=== PATIENT | male | born 1935 | race Caucasian/White ===

== ENCOUNTER 2017-04-30 23:00 | Outpatient (CLI) | payer OTHER | END 2017-04-30 23:01 | disposition short-term general hospital (02) | LOC: EMS 23:00 | PROVIDERS: ATTEND Surgery | DX: M25.551 Pain in right hip (principal); Z91.81 History of falling | CPT/HCPCS: A0425; A0429 ==

== ENCOUNTER 2017-07-01 09:21 | Outpatient (CLI) | payer OTHER | END 2017-07-01 09:22 | disposition home or self-care (01) | LOC: SC 09:21 | PROVIDERS: ATTEND Internal Medicine Pulmonary Disease | DX: G47.33 Obstructive sleep apnea (adult) (pediatric) (principal) | CPT/HCPCS: 99203; 99212 ==

== ENCOUNTER 2018-02-18 08:30 | Outpatient (CLI) | payer OTHER | END 2018-02-18 08:31 | disposition home or self-care (01) | LOC: DI 08:30 | PROVIDERS: ATTEND Internal Medicine Cardiovascular Disease | DX: I48.1 Persistent atrial fibrillation (principal); I08.1 Rheumatic disorders of both mitral and tricuspid valves | CPT/HCPCS: 93306 ==

== ENCOUNTER 2020-11-10 23:49 | Emergency (ER) | payer OTHER ==
--- NOTE | 2020-11-11 00:42 | ED Physician Documentation ---
PD HPI DYSPNEA - Stated complaint Stated Complaint: SOA - Chief complaint Chief Complaint: Resp - History obtained from History obtained from: Patient - History of Present Illness Timing - onset: Today Timing - onset during: Sleep Timing - duration: Minutes Timing - details: Now resolved Inciting event(s): Other (laying in bed had an episodes of "sleep apnea") Improved by: Other (waking up) Worsened by: Other (usually by laying on the back) Associated symptoms: Anxiety. No: Fever, Cough, Hemoptysis, Wheezing, Chest pain / discomfort, Palpitations, Diaphoresis, Bilateral edema, Unilateral edema Similar symptoms before: Diagnosis (sleep apnea) Recently seen: Not recently seen - Additional information Additional information: Previously well 85-year-old male with a history of atrial fibrillation has a history of some sleep apnea when he lays on his back. This is mitigated by laying on his left side and the patient has not had problems during a sleep study or at sleep previously. Tonight he was laying on his back and had an episode of sleep apnea which he describes as just stopping breathing and he rolled to his side this resolved and then when he had an episode on his left side he became concerned and he has now come to the emergency department for evaluation. He denies any cough fever or wheezing. He has had pneumonia previously. He does not feel ill. He does have some periodic exertional dyspnea but has not found that he gets desaturation with this. Review of Systems Constitutional: denies: Fever Eyes: denies: Loss of vision, Decreased vision Ears: denies: Ear pain Nose: denies: Congestion Throat: denies: Sore throat Cardiac: denies: Chest pain / pressure, Palpitations, Pedal edema, Calf pain Respiratory: reports: Dyspnea. denies: Cough, Wheezing GI: denies: Abdominal Pain, Abdominal Swelling, Nausea, Vomiting : denies: Dysuria, Frequency PD PAST MEDICAL HISTORY - Past Medical History Past Medical History: Yes Cardiovascular: High cholesterol, Atrial fibrillation Respiratory: Pneumonia, Shortness of breath Endocrine/Autoimmune: None GI: GERD : None Psych: None Musculoskeletal: None Derm: None - Past Surgical History Past Surgical History: Yes General: Other Cardiovascular: Pacemaker HEENT: Cataracts - Present Medications Home Medications: Ambulatory Orders Medication Instructions Recorded Confirmed Ascorbic Acid [Vitamin C] 500 mg PO DAILY 10/12/13 10/12/13 Calcium Carbonate [Calcium] 1,200 mg PO BID 10/12/13 10/12/13 Colesevelam HCl [Welchol] 625 mg PO DAILY 10/12/13 10/12/13 Fish Oil/Dha/Epa [Fish Oil 1,200 1 each PO BID 10/12/13 10/12/13 mg Fish Oil] Glucosamine/MSM/Chondroit Sulf 1 each PO DAILY 10/12/13 10/12/13 [Hgcfojpisnt-Iwstofqic-WPP Tab] Multivitamin [Multivitamins] 1 each PO DAILY 10/12/13 10/12/13 Omeprazole [Prilosec] 20 mg PO DAILY 10/12/13 10/12/13 Sotalol [Betapace] 160 mg PO BID 10/12/13 10/12/13 Warfarin Sodium [Coumadin] 0 mg PO DAILY 10/12/13 10/12/13 - Allergies Allergies/Adverse Reactions: Allergies Allergy/AdvReac Type Severity Reaction Status Date / Time Penicillins Allergy Rash Verified 11/11/20 00:01 - Social History Does the pt smoke?: No Smoking Status: Never smoker Does the pt drink ETOH?: Yes Does the pt have substance abuse?: No - Immunizations Immunizations are current?: Yes - POLST Patient has POLST: No PD ED PE NORMAL - Vitals Vital signs reviewed: Yes (Hypertensive) - General General: Alert and oriented X 3, No acute distress, Well developed/nourished - HEENT HEENT: Atraumatic, PERRL, EOMI - Neck Neck: Supple, no meningeal sign, No bony TTP - Cardiac Cardiac: RRR, No murmur - Respiratory Respiratory: No respiratory distress, Clear bilaterally - Abdomen Abdomen: Soft, Non tender - Back Back: No CVA TTP, No spinal TTP - Derm Derm: Normal color, Warm and dry, No rash - Extremities Extremities: No deformity, No edema - Neuro Neuro: Alert and oriented X 3, 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, No motor deficit, No sensory deficit, Normal speech Eye Opening: Spontaneous Motor: Obeys Commands Verbal: Oriented GCS Score: 15 - Psych Psych: Normal mood, Normal affect Results - Vitals Vitals: Vital Signs - 24 hr 11/10/20 11/11/20 11/11/20 23:52 00:18 01:30 Temperature 36.3 C L Heart Rate 75 69 72 Respiratory 14 13 14 Rate Blood Pressure 151/99 H 129/95 H 133/84 H O2 Saturation 99 98 97 Oxygen O2 Source Room air - EKG (time done) 0011 Rate: Rate (enter#) (79) Rhythm: Atrial fibrillation Ischemia: Normal ST segments Compare to prior EKG: Old EKG unavailable Computer interpretation: Agree with computer - Labs Labs: Laboratory Tests 11/11/20 11/11/20 11/11/20 00:50 00:50 00:50 WBC 6.9 RBC 4.39 L Hgb 13.3 L Hct 40.5 L MCV 92.3 MCH 30.3 MCHC 32.8 RDW 13.8 Plt Count 174 MPV 10.4 Neut # (Auto) 4.2 Lymph # (Auto) 1.3 L Crowley # (Auto) 0.9 Eos # (Auto) 0.4 Baso # (Auto) 0.1 Absolute Nucleated RBC 0.00 Nucleated RBC % 0.0 Sodium 128 L Potassium 4.5 Chloride 93 L Carbon Dioxide 23 Anion Gap 12.0 BUN 15 Creatinine 1.0 Estimated GFR (MDRD) 71 L Glucose 107 H Calcium 9.3 Total Bilirubin 1.0 AST 31 ALT 22 Alkaline Phosphatase 126 H Troponin I High Sens 7.1 B-Natriuretic Peptide Total Protein 6.7 Albumin 3.8 Globulin 2.9 Albumin/Globulin Ratio 1.3 Lipase 30 11/11/20 00:50 WBC RBC Hgb Hct MCV MCH MCHC RDW Plt Count MPV Neut # (Auto) Lymph # (Auto) Crowley # (Auto) Eos # (Auto) Baso # (Auto) Absolute Nucleated RBC Nucleated RBC % Sodium Potassium Chloride Carbon Dioxide Anion Gap BUN Creatinine Estimated GFR (MDRD) Glucose Calcium Total Bilirubin AST ALT Alkaline Phosphatase Troponin I High Sens B-Natriuretic Peptide 318 H Total Protein Albumin Globulin Albumin/Globulin Ratio Lipase - Rads (name of study) Chest Radiology: Prelim report reviewed, EMP read indepedently, See rad report Procedures - IVC sono (time) 0040 Bedside IVC sono: IVC measures (cm) (1.48), IVC collapsed c insp (cm) (1.02), Euvolemia PD MEDICAL DECISION MAKING - ED course Complexity details: reviewed old records, reviewed results, re-evaluated patient, considered differential, d/w patient ED course: 85-year-old male with a history of sleep apnea has episodes which he feels are related to apnea and they do not usually occur when he is laying on his left side. When he had one occurring on his left side he is come to the emergency department with concerns. I have asked the patient to follow-up again with Dr. Schmid Departure - Departure Disposition: 01 Home, Self Care Clinical Impression: Sleep apnea in adult Condition: Stable Instructions: ED Apnea Sleep Obstructive Follow-Up: Lauri Vasquez MD [Primary Care Provider] - Surjit Wells MD, DABSM [Provider Admit Priv/Credential] - Discharge Date/Time: 11/11/20 02:06
[2020-11-11 00:56] LABS: BASOPHILS # (AUTO) 0.1 10^3/uL (0.0-0.1); BASOPHILS % (AUTO) 1.3 %; EOSINOPHILS # (AUTO) 0.4 10^3/uL (0.0-0.7); EOSINOPHILS % (AUTO) 6.2 %; HCT - HEMATOCRIT 40.5 % (42.0-52.0); HGB - HEMOGLOBIN 13.3 g/dL (14.0-18.0); LYMPHOCYTES # (AUTO) 1.3 10^3/uL (1.5-3.5); MEAN CORPUSCULAR HEMOGLOBIN 30.3 pg (27.0-31.0); MEAN CORPUSCULAR HGB CONC 32.8 g/dL (32.0-36.0); MEAN CORPUSCULAR VOLUME 92.3 fL (80.0-94.0); MEAN PLATELET VOLUME 10.4 fL (7.4-11.4); MONOCYTES # (AUTO) 0.9 10^3/uL (0.0-1.0); MONOCYTES % (AUTO) 13.5 %; NEUTROPHILS # (AUTO) 4.2 10^3/uL (1.5-6.6); NEUTROPHILS % (AUTO) 60.7 %; PLT - PLATELET COUNT 174 10^3/uL (130-450); RED BLOOD COUNT 4.39 10^6/uL (4.70-6.10); RED CELL DISTRIBUTION WIDTH 13.8 % (12.0-15.0); WHITE BLOOD COUNT 6.9 x10^3/uL (4.8-10.8)
[2020-11-11 01:09] LABS: ALBUMIN 3.8 g/dL (3.2-5.5); ALBUMIN/GLOBULIN RATIO 1.3 (1.0-2.2); CALCIUM 9.3 mg/dL (8.5-10.3); POTASSIUM 4.5 mmol/L (3.5-5.0); TOTAL PROTEIN 6.7 g/dL (6.7-8.2)
[2020-11-11 01:53] VITALS: BP 133/84
--- NOTE | 2020-11-11 08:23 | XRAY Report ---
PROCEDURE: Chest 1 View X-Ray INDICATIONS: Dyspnea TECHNIQUE: One view of the chest was acquired. COMPARISON: None FINDINGS: Surgical changes and devices: Left chest wall to lead cardiac pacing device. Lungs and pleura: No pleural effusions or pneumothorax. Low lung volumes. No abnormal air space opac ity Mediastinum: Mediastinal contours appear normal. Heart size is normal. Bones and chest wall: No suspicious bony lesions. Overlying soft tissues appear unremarkable. IMPRESSION: No acute finding or significant change from prior study. No significant change from preliminary repor t. Reviewed by: Jeremy Murray MD on 11/11/2020 8:22 AM PDT Approved by: Jeremy Murray MD on 11/11/2020 8:22 AM PDT Station ID: [id number]
== END 2020-11-11 02:06 | disposition home or self-care (01) ==
LOC: ED 23:49
DX: G47.33 Obstructive sleep apnea (adult) (pediatric) (principal)
CPT/HCPCS: 36415; 80053; 83690; 83880; 84484; 85025; 85610; 93005; 99284

== ENCOUNTER 2021-06-05 13:00 | Outpatient (CLI) | payer OTHER | END 2021-06-05 13:01 | disposition home or self-care (01) | LOC: COV 13:00 | PROVIDERS: ATTEND Dermatology MOHS-Micrographic Surgery | DX: Z01.812 Encounter for preprocedural laboratory examination (principal); Z20.822 Contact with and (suspected) exposure to COVID-19 ==

== ENCOUNTER 2022-09-12 16:49 | Observation (INO) | payer OTHER ==
[2022-09-12] MEDS ORDERED: ACETAMINOPHEN 500 MG TABLET PO STA (17:13)
--- NOTE | 2022-09-12 17:14 | ED Physician Documentation ---
PD HPI HEAD INJURY - Stated complaint Stated Complaint: FALL, BACK/HEAD INJ - Chief complaint Chief Complaint: Trauma Hd/Nk - History obtained from History obtained from: Patient - Additional information Additional information: 87-year-old gentleman with atrial fibrillation on warfarin had been unloading the groceries and got to the top step and then fell backwards, mechanical fall without loss of consciousness. He went down 7 steps and scraped his left eyebrow. Does not feel head injured otherwise per se. His main pain is of the right posterior ribs. He also has some low spinal pain. Review of Systems Eyes: denies: Loss of vision Nose: denies: Rhinorrhea / runny nose, Epistaxis Cardiac: denies: Chest pain / pressure Respiratory: denies: Dyspnea, Cough GI: denies: Abdominal Pain PD PAST MEDICAL HISTORY - Past Medical History Cardiovascular: High cholesterol, Atrial fibrillation Respiratory: Pneumonia, Shortness of breath Endocrine/Autoimmune: None GI: GERD : None Psych: None Musculoskeletal: None Derm: None - Past Surgical History Past Surgical History: Yes General: Other Cardiovascular: Pacemaker HEENT: Cataracts - Present Medications Home Medications: Ambulatory Orders Medication Instructions Recorded Confirmed Ascorbic Acid [Vitamin C] 500 mg PO DAILY 10/12/13 10/12/13 Calcium Carbonate [Calcium] 1,200 mg PO BID 10/12/13 10/12/13 Colesevelam HCl [Welchol] 625 mg PO DAILY 10/12/13 10/12/13 Fish Oil/Dha/Epa [Fish Oil 1,200 1 each PO BID 10/12/13 10/12/13 mg Fish Oil] Glucosamine/MSM/Chondroit Sulf 1 each PO DAILY 10/12/13 10/12/13 [[id number]-Fivfyrfyv-UEM Tab] Multivitamin [Multivitamins] 1 each PO DAILY 10/12/13 10/12/13 Omeprazole [Prilosec] 20 mg PO DAILY 10/12/13 10/12/13 Sotalol [Betapace] 160 mg PO BID 10/12/13 10/12/13 Warfarin Sodium [Coumadin] 0 mg PO DAILY 10/12/13 10/12/13 - Allergies Allergies/Adverse Reactions: Allergies Allergy/AdvReac Type Severity Reaction Status Date / Time Penicillins Allergy Rash Verified 09/12/22 17:03 - Social History Does the pt smoke?: No Smoking Status: Never smoker Does the pt drink ETOH?: Yes Does the pt have substance abuse?: No - Immunizations Immunizations are current?: Yes - POLST Patient has POLST: No PD ED PE NORMAL - Vitals Vital signs reviewed: Yes - General General: Alert and oriented X 3, No acute distress - HEENT HEENT: PERRL, EOMI - Neck Neck: Supple, no meningeal sign, No bony TTP - Respiratory Respiratory: No respiratory distress, Clear bilaterally - Abdomen Abdomen: Non tender - Back Back: Other (Tender to right posterolateral ribs, mild tenderness to the low lumbar spine.) - Derm Derm: Normal color, Warm and dry, Other (There is an abrasion above the left eyebrow) - Neuro Neuro: Alert and oriented X 3, Normal speech Eye Opening: Spontaneous Motor: Obeys Commands Verbal: Oriented GCS Score: 15 Results - Vitals Vitals: Vital Signs - 24 hr 09/12/22 16:59 Temperature 36.4 C L Heart Rate 63 Respiratory 20 Rate Blood Pressure 133/85 H O2 Saturation 99 Oxygen O2 Source Room air - Labs Labs: Laboratory Tests 09/12/22 09/12/22 09/12/22 17:19 17:19 17:20 WBC 14.1 H RBC 4.45 L Hgb 13.4 L Hct 41.9 L MCV 94.2 H MCH 30.1 MCHC 32.0 RDW 13.4 Plt Count 187 MPV 11.4 Neut # (Auto) 11.5 H Lymph # (Auto) 1.1 L [place] # (Auto) 1.0 Eos # (Auto) 0.2 Baso # (Auto) 0.1 Absolute Nucleated RBC 0.00 Nucleated RBC % 0.0 INR (Fingerstick) 1.6 H Sodium 136 Potassium 4.3 Chloride 98 L Carbon Dioxide 27 Anion Gap 11.0 BUN 25 H Creatinine 1.3 H Estimated GFR (MDRD) 52 L Glucose 132 H Calcium 9.9 - Rads (name of study) CT of the head, cervical spine, chest, thoracic spine, lumbar spine Radiology: Final report received, EMP read indepedently PD Medical Decision Making - ED course ED course: 87-year-old gentleman on warfarin took a fall down the stairs and mostly complains of rib pain. CT of the head and neck were negative for findings of serious trauma. CT of the thoracic spine and chest show nondisplaced right T6 and T7 transverse process fractures and minimally displaced right posterior sixth through eighth rib fractures with a tiny right pneumothorax and probably a hemothorax 2. CT of the lumbar spine was negative. Given his age, anticoagulated status and pneumothorax albeit tiny I spoke with Dr. Sneed who will observe. He did not want anything stronger than Tylenol for pain. INR reviewed at 1.6 which is subtherapeutic. BMP reviewed showing mild prerenal azotemia. CBC reviewed with mild leukocytosis and mild anemia. Departure - Departure Disposition: ED Place in Observation Clinical Impression: Multiple transverse process fractures, Subtherapeutic anticoagulation Rib fractures Qualifiers: Encounter type: initial encounter Fracture type: closed Laterality: right Qualified Code(s): S22.41XA - Multiple fractures of ribs, right side, initial encounter for closed fracture Pneumothorax Qualifiers: Pneumothorax type: traumatic Encounter type: initial encounter Qualified C ode(s): S27.0XXA - Traumatic pneumothorax, initial encounter Fall down stairs Qualifiers: Encounter type: initial encounter Qualified Code(s): W10.8XXA - Fall (on) (from) other stairs and steps, initial encounter Condition: Stable Discharge Date/Time: 09/12/22 20:39
--- NOTE | 2022-09-12 18:25 | CT Report ---
PROCEDURE: CERVICAL SPINE WO INDICATIONS: Fall, spine and rib injury TECHNIQUE: Noncontrast 3 mm thick sections acquired from the skull base to the T4 level. Sagittal and coronal r eformats were then constructed. For radiation dose reduction, the following was used: automated exp osure control, adjustment of mA and/or kV according to patient size. COMPARISON: None. FINDINGS: Image quality: Excellent. Bones: No acute fractures or dislocations. Visualized superior ribs are intact. Multilevel disc sp aaron narrowing and degenerative endplate changes as well as multilevel uncovertebral joint and facet h ypertrophy are seen throughout the cervical spine. There is generalized osteopenia. Soft tissues: Prevertebral soft tissues are normal in thickness. No paravertebral hematomas. No ap ical pneumothoraces. Bilateral carotid bifurcation atherosclerotic calcifications. IMPRESSION: No acute cervical spine fracture or subluxation. Moderate multilevel spondylosis. Reviewed by: Henry Monson MD on 09/12/2022 6:23 PM PST Approved by: Henry Monson MD on 09/12/2022 6:23 PM PST Station ID: [id number]
--- NOTE | 2022-09-12 18:39 | CT Report ---
PROCEDURE: CHEST WO INDICATIONS: Fall, spine and rib injury TECHNIQUE: Noncontrast 1mm axial images were acquired from the pulmonary apices to the posterior costophrenic an gles. Axial 5 mm soft tissue kernel reconstructions were performed as well as 8 mm axial MIP and cor onal and sagittal 5 mm reformations. For radiation dose reduction, the following was used: automate d exposure control, adjustment of mA and/or kV according to patient size. COMPARISON: Chest radiograph 11/11/2020, CT chest 10/13/2013 FINDINGS: Image quality: Excellent. Lungs and pleura: No acute air space opacities. Mild peripheral reticulations and traction bronchie ctasis in both lungs are suspicious for mild chronic interstitial lung disease. Trace right-sided ple ural fluid. Trace anterior pneumothorax. Central and peripheral airways are patent and normal in tiffany guilherme. Mediastinum: Heart size is moderately enlarged. No pericardial effusion. No mediastinal adenopathy by size criteria. Thoracic aorta and central pulmonary arteries are normal in size. Esophagus is n ormal in caliber. Small hiatal hernia. Bones and chest wall: A cardiac pacemaker is seen with pulse generator in the left chest. Remote michael or healed right lateral rib fractures are present. Subtle cortical irregularity at the anterior aspec t of multiple right-sided ribs could represent subtle nondisplaced rib fractures a few old healed lef t-sided rib fractures are also present. No suspicious bony lesions. No vertebral body compression fr actures. Degenerative changes are seen in the spine. No axillary or supraclavicular adenopathy by si ze criteria. The thyroid is normal in size. Abdomen: Visualized upper abdominal solid organs and bowel loops appear normal in the absence of con trast. IMPRESSION: 1.Subtle cortical irregularity at the anterior aspect of multiple right-sided ribs near the costochon dral junction, which could represent subtle nondisplaced fractures. Additional subacute to chronic ap pearing rib fractures are seen bilaterally. 2.Trace right-sided pneumothorax anteriorly and trace right pleural effusion posteriorly. 3.Mild chronic interstitial lung disease. 4.Moderate cardiomegaly. Reviewed by: Henry Monson MD on 09/12/2022 6:38 PM PST Approved by: Henry Monson MD on 09/12/2022 6:38 PM PST Station ID: [id number]
--- NOTE | 2022-09-12 18:44 | CT Report ---
PROCEDURE: HEAD WO INDICATIONS: Fall, head injury TECHNIQUE: Noncontrast 4.5 mm thick angled axial sections acquired from the foramen magnum to the vertex. For r adiation dose reduction, the following was used: automated exposure control, adjustment of mA and/or kV according to patient size. COMPARISON: None. FINDINGS: Image quality: Excellent. Please note that study images are located under accession number [id number]. CSF spaces: Basal cisterns are patent. No extra-axial fluid collections. Ventricles are symmetric in size and shape. Brain: No acute intracranial hemorrhage or mass effect. No midline shift. Small area of chronic encep halomalacia is seen in the left occipital lobe related to prior infarct. There is mild prominence of the cerebral sulci and ventricles, consistent with diffuse parenchymal volume loss. Skull and face: Small left frontal scalp hematoma. Calvarium and visualized facial bones are intact, without suspicious lesions. Sinuses: Mucosal thickening in the right maxillary sinus. The remaining visualized paranasal sinuses and the mastoid air cells are clear. IMPRESSION: 1.Please note that nonreformatted axial exam images are available under accession number [id number] H. 2.Small left frontal scalp hematoma. No skull fracture. No acute intracranial hemorrhage or mass effe ct. 3.Remote prior left occipital lobe infarct. 4.Mild age-related parenchymal volume loss. Reviewed by: Henry Monson MD on 09/12/2022 6:42 PM PST Approved by: Henry Monson MD on 09/12/2022 6:42 PM PST Station ID: [id number]
--- NOTE | 2022-09-12 18:48 | CT Report ---
PROCEDURE: THORACIC SPINE WO INDICATIONS: Fall, spine and rib injury TECHNIQUE: Noncontrast 3 mm thick sections acquired through the region of interest in the thoracic spine. Sagit marcello and coronal reformats were then constructed. For radiation dose reduction, the following was used : automated exposure control, adjustment of mA and/or kV according to patient size. COMPARISON: None. FINDINGS: Image quality: Excellent. Bones: Minimally displaced fractures are seen in the posterior medial right sixth through eighth rib s. Minimally displaced fracture of the right T6 and T7 transverse processes. No acute thoracic spine compression fracture. The posterior left-sided ribs are intact. Levoconvex curvature of the thoracic spine. No suspicious sclerotic or lytic bony lesions. Central spinal canal is of normal overall tiffany guilherme. Soft tissues: Trace right pleural effusion. A few foci of air and trace pneumothorax are seen adjace nt to the seventh and eighth rib fractures. No paravertebral masses or hematomas. Visualized postero medial lungs appear clear. Aortic atherosclerotic calcifications. There is enlarged. IMPRESSION: 1.Minimally displaced right posterior sixth through eighth rib fractures. 2.No displaced right T6 and T7 transverse process fractures. 3.Trace right pneumothorax and trace pleural effusion. Reviewed by: Henry Monson MD on 09/12/2022 6:47 PM PST Approved by: Henry Monson MD on 09/12/2022 6:47 PM PST Station ID: [id number]
[2022-09-12 18:49] LABS: BASOPHILS # (AUTO) 0.1 10^3/uL (0.0-0.1); BASOPHILS % (AUTO) 0.8 %; EOSINOPHILS # (AUTO) 0.2 10^3/uL (0.0-0.7); EOSINOPHILS % (AUTO) 1.6 %; HCT - HEMATOCRIT 41.9 % (42.0-52.0); HGB - HEMOGLOBIN 13.4 g/dL (14.0-18.0); LYMPHOCYTES # (AUTO) 1.1 10^3/uL (1.5-3.5); LYMPHOCYTES % (AUTO) 7.8 %; MEAN CORPUSCULAR HEMOGLOBIN 30.1 pg (27.0-31.0); MEAN CORPUSCULAR VOLUME 94.2 fL (80.0-94.0); MEAN PLATELET VOLUME 11.4 fL (7.4-11.4); MONOCYTES % (AUTO) 7.1 %; NEUTROPHILS # (AUTO) 11.5 10^3/uL (1.5-6.6); NEUTROPHILS % (AUTO) 81.7 %; PLT - PLATELET COUNT 187 10^3/uL (130-450); RED BLOOD COUNT 4.45 10^6/uL (4.70-6.10); RED CELL DISTRIBUTION WIDTH 13.4 % (12.0-15.0); WHITE BLOOD COUNT 14.1 x10^3/uL (4.8-10.8)
[2022-09-12] MEDS ORDERED: LIDOCAINE PATCH 5% TOP STA (18:52)
--- NOTE | 2022-09-12 18:52 | CT Report ---
PROCEDURE: LUMBAR SPINE WO INDICATIONS: Fall, spine and rib injury TECHNIQUE: Noncontrast 3 mm thick sections acquired from the T12 level to the sacrum. Sagittal and coronal refo rmats were constructed. For radiation dose reduction, the following was used: automated exposure co ntrol, adjustment of mA and/or kV according to patient size. COMPARISON: None. FINDINGS: Image quality: Excellent. 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 Grade 1 retrolisthesis of L4 on L5 measurin g 3 mm. There is 2 mm grade 1 retrolisthesis of L2 on L3. No acute vertebral body compression fractur es. No suspicious lytic or blastic bony lesions. Central spinal caliber is of normal overall calibe r. No pars defects. Severe disc space narrowing and degenerative endplate changes are seen throughout the lumbar spine. T here is multilevel facet hypertrophy throughout the lumbar spine. Findings result in multilevel neura l foraminal narrowing. Soft tissues: No retroperitoneal masses or hematomas. Visualized aorta is normal in caliber. Aorti c atherosclerotic calcifications. IMPRESSION: 1.No acute lumbar spine fracture identified. 2.Moderate to severe multilevel spondylosis. 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 Reviewed by: Henry Monson MD on 09/12/2022 6:51 PM PST Approved by: Henry Monson MD on 09/12/2022 6:51 PM PST Station ID: [id number]
[2022-09-12 18:56] LABS: CALCIUM 9.9 mg/dL (8.5-10.3); CREATININE 1.3 mg/dL (0.6-1.2); POTASSIUM 4.3 mmol/L (3.5-5.0)
[2022-09-12] MEDS ORDERED: ACETAMINOPHEN 325 MG TABLET PO PRN (19:12)
[2022-09-12] MEDS ORDERED: SODIUM CHLORIDE FLUSH 0.9% 10 ML SYRINGE IVP PRN (19:12)
[2022-09-12] MEDS ORDERED: ONDANSETRON ODT 4 MG TABLET TL PRN (19:12)
--- NOTE | 2022-09-12 19:20 | SURGERY HX AND PHYSICAL(T) ---
Surgical History & Physical - Chief Complaint/HPI Chief Complaint: s/p fall History of Present Illness: At approximately 1630 today, the patient and his were returning home from the grocery store when the patient missed a step at the top of the stairs. He fell backwards and knocked his over as well as he tumbled "ass over teakettle" down the stairs. He did not have a loss of consciousness. He did hit his forehead. He is on chronic warfarin for a fib. At the time of my exam, the patient complains of some mid back pain, but otherwise has no complaints. He is not short of breath. He denies n/v, abdominal pain. - PMH/PSH/Social Hx Does the pt have a hx of MRSA?: No Cardiovascular: High cholesterol, Atrial fibrillation Respiratory: Pneumonia, Shortness of breath Skin: None Endocrine/Autoimmune: None Gastrointestinal: GERD Urinary: None Musculoskeletal: None Blood Disorders: None Psychiatric: None General: Other Cardiothoracic: Pacemaker Eyes Ears Nose Throat (EENT): Cataracts Smoking Status: Never smoker Does the pt drink ETOH?: Yes Frequency: Daily Number: 1 Amount/day: Drinks/day Does the pt have substance abuse?: No - Family Hx Family Hx: Unremarkable - Home Meds and Allergies Home Medications: Ascorbic Acid [Vitamin C] 500 mg PO DAILY 10/12/13 Calcium Carbonate [Calcium] 1,200 mg PO BID 10/12/13 Colesevelam HCl [Welchol] 625 mg PO DAILY 10/12/13 Fish Oil/Dha/Epa [Fish Oil 1,200 mg Fish Oil] 1 each PO BID 10/12/13 Glucosamine/MSM/Chondroit Sulf [Iktuuykrsam-Zucelpdbc-DKX Tab] 1 each PO DAILY 10/12/13 Multivitamin [Multivitamins] 1 each PO DAILY 10/12/13 Omeprazole [Prilosec] 20 mg PO DAILY 10/12/13 Sotalol [Betapace] 160 mg PO BID 10/12/13 Warfarin Sodium [Coumadin] 0 mg PO DAILY 10/12/13 Allergies/Adverse Reactions: Allergies Allergy/AdvReac Type Severity Reaction Status Date / Time Penicillins Allergy Rash Verified 09/12/22 17:03 - Review of Systems Constitutional: Other (Aside from HPI and PMH, negative.) - Vital Signs Heart Rate: 72 Blood Pressure: 123/90 Temperature: 36.4 C Respiratory Rate: 18 O2 Saturation: 97 Weight (kg): 74.843 kg Height: 1.65 m - Physical Exam General Appearance: positive: No acute distress, Alert Eyes Bilatera: positive: Normal inspection, PERRL, EOMI ENT: positive: No signs of dehydration, Other (left forehead scalp laceration and associated hematoma) Neck: positive: Nml inspection, Thyroid nml, No JVD, Trachea midline Respiratory: positive: Chest non-tender, No respiratory distress Cardiovascular: positive: Irregularly irregular, Other (regular rate) Peripheral Pulses: positive: 2+ Abdomen: positive: Non-tender. negative: Guarding, Rebound Back: positive: Other (right mid thoracic pain, lidoderm patch in place. Otherwise no midline ttp.) Skin: positive: Color nml. negative: Skin rash Extremities: positive: Non-tender, Full ROM, No pedal edema, Other (several bruises in various stages of healing) Neurologic/Psychiatric: positive: Oriented x3, Motor nml, Sensation nml - Patient Review Patient Review: Problems were reviewed with the patient during this visit. Medications were reviewed with the patient during this visit. Allergies were reviewed this patient during this visit. Pertinent Tests Reviewed: All pertitent test for this patient were reviewed. 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 87 y/o M s/p fall down stairs with: 1. right posterior rib 6-8 fx, non displaced - lidoderm patch in place - pain controlled with tylenol - tiny dot of air in thorax just deep to fracture, possible trace pneumothorax - plan to recheck CXR in AM 2. right T6,7 TP fx - non displaced - pain controlled - neuro intact 3. scalp laceration - s/p repair - small associated hematoma 4. Afib, HPL, GERD - will continue home meds Observe overnight for pain control and repeat CXR in AM. If no significant increase in pneumothorax, plan to discharge home tomorrow AM.
[2022-09-12] MEDS ORDERED: CALCIUM CARBONATE 500 MG PO SCH (21:00)
[2022-09-12] MEDS: SOTALOL 80 MG TABLET PO SCH (21:29)
[2022-09-12 21:32] LABS: B. PARAPERTUSSIS- RESP PCR PAN NOT DETECTED; B. PERTUSSIS- RESP PCR PANEL NOT DETECTED; C. PNEUMONIAE- RESP PCR PANEL NOT DETECTED; CORONAVIRUS 229E-RESP PCR NOT DETECTED; CORONAVIRUS HKU1-RESP PCR NOT DETECTED; CORONAVIRUS NL63-RESP PCR NOT DETECTED; CORONAVIRUS OC43-RESP PCR NOT DETECTED; HUMAN METAPNEUMOVIRUS NOT DETECTED; INFLUENZA A- RESP PCR PANEL NOT DETECTED; INFLUENZA B - RESP PCR PANEL NOT DETECTED; M. PNEUMONIAE- RESP PCR PANEL NOT DETECTED; PARAINFLUENZA VIRUS 1 NOT DETECTED; PARAINFLUENZA VIRUS 2 NOT DETECTED; PARAINFLUENZA VIRUS 3 NOT DETECTED; PARAINFLUENZA VIRUS 4 NOT DETECTED; RHINOVIRUS/ENTEROVIRUS NOT DETECTED; RSV- RESP PCR PANEL NOT DETECTED; SARS-CoV-2 -RESP PCR PANEL NOT DETECTED
[2022-09-12] MEDS: oxyCODONE 5 MG TABLET PO PRN (23:52)
[2022-09-13] MEDS: SODIUM CHLORIDE FLUSH 0.9% 10 ML SYRINGE IVP SCH ×2 (01:21→09:29)
[2022-09-13] MEDS ORDERED: PANTOPRAZOLE 40 MG TABLET PO SCH (07:00)
--- NOTE | 2022-09-13 07:40 | DISCHARGE SUMMARY ---
Discharge Summary Admit Date: 09/12/22 Discharge Date: 09/13/22 Discharging Provider: Dr. Sneed Condition at Discharge: Stable Discharge Disposition: 01 Home, Self Care - DIAGNOSES Admission Diagnoses: s/p fall down stairs right posterior rib 6-8 fx right T6, T7 TP fx trace right pneumothorax left forehead laceration and hematoma atrial fibrillation hypercholesterolemia GERD Discharge Diagnoses with Status of Each Condition: s/p fall down stairs right posterior rib 6-8 fx, stable right T6, T7 TP fx, stable trace right pneumothorax, stable left forehead laceration and hematoma, stable atrial fibrillation, stable hypercholesterolemia, stable GERD, stable - HPI History of Present Illness: At approximately 1630 today, the patient and his were returning home from the grocery store when the patient missed a step at the top of the stairs. He fell backwards and knocked his over as well as he tumbled "ass over teakettle" down the stairs. He did not have a loss of consciousness. He did hit his forehead. He is on chronic warfarin for a fib. - CONSULTS | PROCEDURES Consultations: none Procedures: none - HOSPITAL COURSE Hospital Course: The patient was observed overnight for pain control (achieved with lidoderm pat ch and tylenol) and repeat CXR in AM (which is stable). At this time, he is tolerating a regular diet, able to ambulate at baseline level of function, and his pain is controlled. He is appropriate for discharge to home. - ALLERGIES Allergies/Adverse Reactions: Allergies Allergy/AdvReac Type Severity Reaction Status Date / Time Penicillins Allergy Rash Verified 09/12/22 17:03 - MEDICATIONS Home Medications: Ambulatory Orders Medication Instructions Recorded Confirmed Ascorbic Acid [Vitamin C] 500 mg PO DAILY 10/12/13 10/12/13 Calcium Carbonate [Calcium] 1,200 mg PO BID 10/12/13 10/12/13 Colesevelam HCl [Welchol] 625 mg PO DAILY 10/12/13 10/12/13 Fish Oil/Dha/Epa [Fish Oil 1,200 1 each PO BID 10/12/13 10/12/13 mg Fish Oil] Glucosamine/MSM/Chondroit Sulf 1 each PO DAILY 10/12/13 10/12/13 [Pdeyuktzhly-Kwycvikzn-EXV Tab] Multivitamin [Multivitamins] 1 each PO DAILY 10/12/13 10/12/13 Omeprazole [Prilosec] 20 mg PO DAILY 10/12/13 10/12/13 Sotalol [Betapace] 160 mg PO BID 10/12/13 10/12/13 Warfarin Sodium [Coumadin] 0 mg PO DAILY 10/12/13 10/12/13 - PHYSICAL EXAM AT DISCHARGE General Appearance: positive: No acute distress, Alert Eyes Bilateral: positive: Other (left forehead hematoma) Neck: positive: Trachea midline Respiratory: positive: No respiratory distress, Breath sounds nml Cardiovascular: positive: Irregularly irregular, Other (regular rate) Peripheral Pulses: positive: 2+ Abdomen: positive: Non-tender, No distention. negative: Guarding, Rebound Back: positive: Other (mid thoracic tenderness to palpation) Skin: positive: Warm, Dry Extremities: positive: Non-tender Neurologic/Psychiatric: positive: Oriented x3 - LABS Result Diagrams: 09/12/22 17:19 09/12/22 17:19 - DIAGNOSTIC IMAGING Diagnostic Imaging Results: Read independently Diagnostic Imaging Results Comments: Repeat CXR this AM demonstrates no significant R PTX. I personally reviewed the images from the patient's AM CXR. Report is pending. - QUALITY (Female Hip Fx Only) Was patient sent home on osteoporosis medication?: No - FOLLOW UP Follow Up: PCP within 10 days. General surgery, prn.
--- NOTE | 2022-09-13 08:19 | Discharge Plan ---
Discharge Plan Problem Reviewed?: Yes Disposition: Home, Self Care Condition: Stable Prescriptions: oxyCODONE [Roxicodone] 5 mg PO Q4HR PRN #21 tab PRN Reason: Pain Lidocaine Patch 5% [Lidoderm Patch] 1 each TOP DAILY #14 patch polyethylene glycoL 3350 [Miralax] 17 gm PO DAILY #238 gm Diet: Regular Activity Restrictions: No Restrictions Shower Restrictions: No Driving Restrictions: Yes (do not drive while taking oxycodone) Assistance Devices: Walker (patient has at home, use as needed) Weight Bearing: Full Weight Instruction Topics: Fx Rib, ED Contusion Scalp No Smoking: If you smoke, Please STOP! Call for help. Follow-up with: Lauri Vasquez MD [Primary Care Provider] -
--- NOTE | 2022-09-13 08:31 | XRAY Report ---
PROCEDURE: Chest 2 View X-Ray INDICATIONS: f/u right posterior rib fx, ptx TECHNIQUE: 2 views of the chest were acquired. COMPARISON: CT of chest dated 09/12/2022. FINDINGS: Surgical changes and devices: Left chest wall pacemaker leads are in the region of right atrium and r ight ventricle.. Lungs and pleura: No pleural effusions or pneumothorax. Poor inspiratory fluid. No definite focal in filtrate. Mediastinum: Mediastinal contours are normal. Heart size is enlarged Bones and chest wall: No suspicious bony abnormalities. Soft tissues appear unremarkable. IMPRESSION: 1. Poor inspiratory effort. Cardiomegaly. No definite focal infiltrate. No significant pleural effusi on or pneumothorax. Reviewed by: Francisco Javier Mayberry MD on 09/13/2022 8:30 AM PST Approved by: Francisco Javier Mayberry MD on 09/13/2022 8:30 AM PST Station ID: [id number]
[2022-09-13] MEDS ORDERED: COLESEVELAM HCL 625 MG PO SCH (09:00)
[2022-09-13] MEDS ORDERED: CALCIUM CARBONATE CHEW 500 MG TABLET PO SCH (09:00)
[2022-09-13] MEDS: oxyCODONE 5 MG TABLET PO PRN (09:30)
[2022-09-13] MEDS: SOTALOL 80 MG TABLET PO SCH (09:58)
--- NOTE | 2022-09-13 11:07 | PHARMACY PROGRESS NOTE ---
- Best Possible Medication History Admit Date and Time: 09/12/221911 Processed by: Pharmacy Medication History completed: Yes Patient Interview: Completed Secondary Source(s): Insurance records (PT IS A GOOD HISTORIAN AND KNOWS HIS MEDS/DOSES WELL.) As the person ultimately responsible for medication therapy, providers are able to order a medication from an existing home medication list in [facility] via the "Reconcile Routine" prior to Confirmation of that medication by security support analyst. Such practice is discouraged except when the physician, in their clinical judgment, deems that a medical need exists for a medication without regard to previous use.
--- NOTE | 2022-09-13 11:18 | Discharge Plan ---
Discharge Plan Problem Reviewed?: Yes Disposition: Home, Self Care Prescriptions: Lidocaine Patch 5% [Lidoderm Patch] 1 each TOP DAILY #14 patch Diet: Regular Activity Restrictions: No Restrictions Shower Restrictions: No Driving Restrictions: Yes (do not drive while taking oxycodone) Assistance Devices: Walker (use home walker, as needed) Weight Bearing: Full Weight Instruction Topics: Fx Rib, ED Contusion Scalp No Smoking: If you smoke, Please STOP! Call for help. Follow-up with: Lauri Vasquez MD [Primary Care Provider] -
[2022-09-13 12:18] VITALS: BP 98/61
[2022-09-13] MEDS ORDERED: FUROSEMIDE 20 MG TABLET PO SCH (21:00)
[2022-09-14] MEDS ORDERED: METOPROLOL TARTRATE 50 MG TABLET PO SCH (09:00)
== END 2022-09-13 12:55 | disposition home or self-care (01) ==
LOC: ED 16:49 → MS2 19:12
PROVIDERS: ADMIT Surgery; ATTEND Surgery
DX: G89.11 Acute pain due to trauma (principal); S27.0XXA Traumatic pneumothorax, initial encounter; S22.41XA Multiple fractures of ribs, right side, initial encounter for closed fracture; W10.9XXA Fall (on) (from) unspecified stairs and steps, initial encounter; Y93.9 Activity, unspecified; Y92.009 Unspecified place in unspecified non-institutional (private) residence as the place of occurrence of the external cause; S22.069A Unspecified fracture of T7-T8 vertebra, initial encounter for closed fracture; S22.059A Unspecified fracture of T5-T6 vertebra, initial encounter for closed fracture; S01.01XA Laceration without foreign body of scalp, initial encounter; I48.91 Unspecified atrial fibrillation; Z79.01 Long term (current) use of anticoagulants; E78.00 Pure hypercholesterolemia, unspecified; K21.9 Gastro-esophageal reflux disease without esophagitis; Z20.822 Contact with and (suspected) exposure to COVID-19; Z86.73 Personal history of transient ischemic attack (TIA), and cerebral infarction without residual deficits
CPT/HCPCS: 36415; 70450; 71046; 71250; 72125; 72128; 72131; 80048; 85025; 85610; 87633; 99284; 99285; A9270; G0378

== ENCOUNTER 2022-09-19 14:18 | Emergency (ER) | payer OTHER ==
--- OUTSIDE RECORDS SUMMARY | 2022-09-19 15:14 | EXTERNAL MEDICAL SUMMARY RPT | Continuity of Care Document ---
:1935 Author Organization Mobile Address [address] [place] [address] Phone Care Team Providers Name Role Phone Lauri Vasquez Unavailable Unavailable Ana, Provider Unavailable Unavailable Allergies and Intolerances date description facility type (no date) [facility] (unknown) (no date) [facility] (unknown) (no date) sulfite [facility] (unknown) Encounters No information. Functional Status No information. Immunizations No information. Medications date description facility 2022-09-12 00:00 WARFARIN SODIUM All 2022-09-12 00:00 furosemide All 2022-09-12 00:00 metoprolol succinate All 2022-09-12 00:00 WARFARIN SODIUM All 2022-09-12 00:00 furosemide All 2022-09-12 00:00 metoprolol succinate All 2022-09-12 00:00 furosemide All 2022-09-12 00:00 GUAIFENESIN All 2022-09-12 00:00 GUAIFENESIN All 2022-09-12 00:00 metoprolol succinate All 2022-09-12 00:00 WARFARIN SODIUM All 2022-09-12 00:00 WARFARIN SODIUM All 2022-09-12 00:00 metoprolol succinate All 2022-09-12 00:00 GUAIFENESIN All 2022-09-12 00:00 furosemide All 2022-09-12 00:00 GUAIFENESIN All Problems date description facility 2022-09-13 00:00 Shortness of breath [facility] 2022-09-13 00:00 Fracture of rib [facility] Procedures date description facility 2022-09-13 00:00 X-ray of chest, two views [facility] Results/Labs test date author facility value unit interpret ation Result panel 1 (unknown) (no (unknown) (unknown) (no value) (units (unk nown) date) unknown) (unknown) (no (unknown) (unknown) [id number] (units (unkn own) date) unknown) (unknown) (no (unknown) (unknown) 09/13/22 (units (unkno wn) date) unknown) (unknown) (no (unknown) (unknown) 1. Cardiomegaly (units (unknown) date) and diffuse unknown) interstitial prominence suggesting CHF. (unknown) (no (unknown) (unknown) [address] [place] [address] (units (unknown) date) unknown) (unknown) (no (unknown) (unknown) 2. Horizontal (units ( unknown) date) right base unknown) opacity may be atelectasis, effusion, or edema. (unknown) (no (unknown) (unknown) 3. No evidence (units (unknown) date) of pneumothorax. unknown) (unknown) (no (unknown) (unknown) 4. No visible (units ( unknown) date) displaced rib unknown) fractures. (unknown) (no (unknown) (unknown) Accession (units (unkn own) date) Number: unknown) [id number] (unknown) (no (unknown) (unknown) Age/Sex: 87 / M (units (unknown) date) Date of Service: unknown) (unknown) (no (unknown) (unknown) [place], [place] (units ( unknown) date) [id number] unknown) (unknown) (no (unknown) (unknown) Approved by: (units (u nknown) date) nasra Combs) Emeterio on 09/13/2022 at 17:43 (unknown) (no (unknown) (unknown) Bones and chest (units (unknown) date) wall: No unknown) suspicious bony abnormalities. Degenerative changes (unknown) (no (unknown) (unknown) COMPARISON: (units (un known) date) [facility], unknown) CR, XR CHEST 1V, 02/05/2021, 3:04. (unknown) (no (unknown) (unknown) : 1935 (units (unknown) date) Acct:[id number] unknown) (unknown) (no (unknown) (unknown) Dictated by: (units (u nknown) date) nasra Combs) Emeterio on 09/13/2022 at 17:40 (unknown) (no (unknown) (unknown) FINDINGS: (units (unkn own) date) unknown) (unknown) (no (unknown) (unknown) IMPRESSION: (units (un known) date) unknown) (unknown) (no (unknown) (unknown) INDICATIONS: (units (u nknown) date) fall last unknown) night,known rib fractures,pneumo, increase SOB (unknown) (no (unknown) (unknown) [facility] (units (unknown) date) unknown) (unknown) (no (unknown) (unknown) Loc: ED (units (unkno wn) date) unknown) (unknown) (no (unknown) (unknown) Lungs and (units (unkn own) date) pleura: Low lung unknown) volumes. No visible pneumothorax. Horizontal (unknown) (no (unknown) (unknown) Mediastinum: (units (u nknown) date) Mediastinal unknown) contours are normal. Heart size is enlarged. (unknown) (no (unknown) (unknown) Ordering (units (unkno wn) date) Provider: unknown) Sheree Lawler D.O. (unknown) (no (unknown) (unknown) PROCEDURE: XR (units ( unknown) date) CHEST 2V unknown) (unknown) (no (unknown) (unknown) Patient: (units (unkno wn) date) Jorge Gordoninald A unknown) MR#: [id number] (unknown) (no (unknown) (unknown) Procedure: XR (units ( unknown) date) chest 2V unknown) (unknown) (no (unknown) (unknown) Signed (units (unkno wn) date) unknown) (unknown) (no (unknown) (unknown) Surgical changes (units (unknown) date) and devices: Dual unknown) lead left-sided transvenous pacemaker. (unknown) (no (unknown) (unknown) TECHNIQUE: 2 (units (u nknown) date) views of the unknown) chest were acquired. (unknown) (no (unknown) (unknown) XRay Report (units (un known) date) unknown) (unknown) (no (unknown) (unknown) in the (units (unkno wn) date) unknown) (unknown) (no (unknown) (unknown) left effusion. (units (unknown) date) unknown) (unknown) (no (unknown) (unknown) opacity at the (units (unknown) date) unknown) (unknown) (no (unknown) (unknown) right lower (units (un known) date) lung. Diffuse unknown) interstitial thickening in the mid to lower lung (unknown) (no (unknown) (unknown) right shoulder. (units (unknown) date) Severe leftward unknown) thoracolumbar scoliosis. Soft tissues appear (unknown) (no (unknown) (unknown) unremarkable. (units ( unknown) date) unknown) (unknown) (no (unknown) (unknown) zones. No (units (unkn own) date) unknown) Result panel 2 (unknown) (no (unknown) (unknown) (no value) (units (unk nown) date) unknown) (unknown) (no (unknown) (unknown) (Efudex) lesions (units (unknown) date) ##0 unknown) (unknown) (no (unknown) (unknown) (Glucosamine (units (u nknown) date) Sulfate 2 unknown) (unknown) (no (unknown) (unknown) 0.3 mg SL Q5-15M (units (unknown) date) PRN (Reason: unknown) chest pain) Qty: 25 0RF (unknown) (no (unknown) (unknown) [id number] (units (unkno wn) date) unknown) (unknown) (no (unknown) (unknown) 09/13/22 17:40 (units (unknown) date) unknown) (unknown) (no (unknown) (unknown) 09/13/22 (units (unkno wn) date) unknown) (unknown) (no (unknown) (unknown) 04/30/18 (units (unkno wn) date) unknown) (unknown) (no (unknown) (unknown) 1 carter Topical (units ( unknown) date) PRN PRN (Reason: unknown) skin cancer lesions) Qty: 0 (unknown) (no (unknown) (unknown) 1 cap PO DAILY (units (unknown) date) Qty: 0 unknown) (unknown) (no (unknown) (unknown) 1 tab PO Q4-6H (units (unknown) date) PRN (Reason: unknown) pain) Qty: 20 0RF (unknown) (no (unknown) (unknown) 1 tab PO QDAY (units ( unknown) date) Qty: 0 unknown) (unknown) (no (unknown) (unknown) 1 tablet PO (units (un known) date) every 4-6 hours unknown) as needed for pain (unknown) (no (unknown) (unknown) 10 mg PO QAM (units (u nknown) date) Qty: 10 0RF unknown) (unknown) (no (unknown) (unknown) 17:27 (units (unkno wn) date) unknown) (unknown) (no (unknown) (unknown) 20 mg PO BID (units (u nknown) date) unknown) (unknown) (no (unknown) (unknown) 5 mg PO QHS PRN (units (unknown) date) (Reason: Sleep) unknown) (unknown) (no (unknown) (unknown) 5 mg PO SEEINSTR (units (unknown) date) unknown) (unknown) (no (unknown) (unknown) 50 mg PO BEDTIME (units (unknown) date) unknown) (unknown) (no (unknown) (unknown) 500 (units (unkno wn) date) mg-chondroitin unknown) 400 mg capsule (unknown) (no (unknown) (unknown) 5mg every (units (unkn own) date) Saturday/2.5mg rest unknown) (unknown) (no (unknown) (unknown) 8 meq PO DAILY (units (unknown) date) Qty: 10 0RF unknown) (unknown) (no (unknown) (unknown) Afib (units (unkno wn) date) unknown) (unknown) (no (unknown) (unknown) Age/Sex: 87 / M (units (unknown) date) unknown) (unknown) (no (unknown) (unknown) Alcohol type: (units ( unknown) date) hard liquor unknown) (unknown) (no (unknown) (unknown) Allergies (units (unkn own) date) unknown) (unknown) (no (unknown) (unknown) Allergy/AdvReac (units (unknown) date) Type Severity unknown) Reaction Status Date / Time (unknown) (no (unknown) (unknown) BCC (basal cell (units (unknown) date) carcinoma of unknown) skin) (unknown) (no (unknown) (unknown) Bilateral lower (units (unknown) date) extremity edema unknown) (unknown) (no (unknown) (unknown) Blood Pressure (units (unknown) date) 107/65 09/13/22 unknown) 17:27 (unknown) (no (unknown) (unknown) Blood Pressure (units (unknown) date) 107/65 unknown) 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) (unknown) (no (unknown) (unknown) Capsule (units (unkno wn) date) unknown) (unknown) (no (unknown) (unknown) Chest [XR chest (units (unknown) date) 2V] Stat unknown) (unknown) (no (unknown) (unknown) Chief complaint: (units (unknown) date) Shortness of unknown) Breath/Dyspnea (unknown) (no (unknown) (unknown) Closed (units (unkno wn) date) nondisplaced unknown) fracture of pelvis (unknown) (no (unknown) (unknown) Course (units (unkno wn) date) unknown) (unknown) (no (unknown) (unknown) : 1935 (units (unknown) date) Acct:[id number] unknown) (unknown) (no (unknown) (unknown) Date of Service: (units (unknown) date) 09/13/22 unknown) (unknown) (no (unknown) (unknown) Departure (units (unkn own) date) unknown) (unknown) (no (unknown) (unknown) Diabetes (units (unkno wn) date) unknown) (unknown) (no (unknown) (unknown) Discharge Plan (units (unknown) date) unknown) (unknown) (no (unknown) (unknown) ED Orders (units (unkn own) date) unknown) (unknown) (no (unknown) (unknown) ER Physician: (units ( unknown) date) Fito Pagan unknown) D.O. (unknown) (no (unknown) (unknown) Easy (units (unkno wn) date) bruisability unknown) (unknown) (no (unknown) (unknown) Emergency Report (units (unknown) date) unknown) (unknown) (no (unknown) (unknown) Exam (units (unkno wn) date) unknown) (unknown) (no (unknown) (unknown) Fragile skin (units (u nknown) date) unknown) (unknown) (no (unknown) (unknown) GERD (units (unkno wn) date) (gastroesophageal unknown) reflux disease) (unknown) (no (unknown) (unknown) General (units (unkno wn) date) unknown) (unknown) (no (unknown) (unknown) HPI - General (units ( unknown) date) Adult unknown) (unknown) (no (unknown) (unknown) Home Medications (units (unknown) date) unknown) (unknown) (no (unknown) (unknown) Hx of (units (unkno wn) date) arthroscopy of unknown) shoulder (unknown) (no (unknown) (unknown) Hx of hernia (units (u nknown) date) repair unknown) (unknown) (no (unknown) (unknown) Hx of (units (unkno wn) date) tonsillectomy unknown) (unknown) (no (unknown) (unknown) Initial Vital (units ( unknown) date) Signs unknown) (unknown) (no (unknown) (unknown) Initial Vital (units ( unknown) date) Signs: unknown) (unknown) (no (unknown) (unknown) [facility] (units (unknown) date) [address] unknown) [place] [address] (unknown) (no (unknown) (unknown) KCL-Chondroitin) (units (unknown) date) unknown) (unknown) (no (unknown) (unknown) Lauri Vasquez MD (units (unknown) date) [Primary Care unknown) Provider] (unknown) (no (unknown) (unknown) Left foot drop (units (unknown) date) unknown) (unknown) (no (unknown) (unknown) Medical History (units (unknown) date) (Reviewed unknown) 02/21/21 @ 10:52 by Johnson Patel MD) (unknown) (no (unknown) (unknown) Medication (units (unk nown) date) Instructions unknown) Recorded Confirmed (unknown) (no (unknown) (unknown) Medication (units (unk nown) date) Instructions unknown) Recorded (unknown) (no (unknown) (unknown) Mixed (units (unkno wn) date) hyperlipidemia unknown) (unknown) (no (unknown) (unknown) No Action (units (unkn own) date) unknown) (unknown) (no (unknown) (unknown) Numbness (units (unkno wn) date) unknown) (unknown) (no (unknown) (unknown) Ordered: (units (unkno wn) date) unknown) (unknown) (no (unknown) (unknown) Orders (units (unkno wn) date) unknown) (unknown) (no (unknown) (unknown) Oxygen Delivery (units (unknown) date) Method 09/13/22 unknown) 17:27 (unknown) (no (unknown) (unknown) Oxygen Delivery (units (unknown) date) Method Room Air unknown) (unknown) (no (unknown) (unknown) Pacemaker (units (unkn own) date) unknown) (unknown) (no (unknown) (unknown) Patient History (units (unknown) date) unknown) (unknown) (no (unknown) (unknown) Patient: (units (unkno wn) date) Dallin Gordon unknown) MR#: [id number] (unknown) (no (unknown) (unknown) Penicillins (units (un known) date) [PENICILLINS] unknown) Allergy Mild Rash Verified 09/13/22 17:27 (unknown) (no (unknown) (unknown) Pneumonia (units (unkn own) date) unknown) (unknown) (no (unknown) (unknown) Prescriptions: (units (unknown) date) unknown) (unknown) (no (unknown) (unknown) Previous Rx's (units ( unknown) date) unknown) (unknown) (no (unknown) (unknown) Pulse Oximetry (units (unknown) date) 98 09/13/22 17:27 unknown) (unknown) (no (unknown) (unknown) Pulse Oximetry (units (unknown) date) 98 unknown) (unknown) (no (unknown) (unknown) Pulse Rate 75 (units ( unknown) date) 09/13/22 17:27 unknown) (unknown) (no (unknown) (unknown) Pulse Rate 75 (units ( unknown) date) unknown) (unknown) (no (unknown) (unknown) Referrals: (units (unk nown) date) unknown) (unknown) (no (unknown) (unknown) Related Data (units (u nknown) date) unknown) (unknown) (no (unknown) (unknown) Respiratory Rate (units (unknown) date) 15 09/13/22 17:27 unknown) (unknown) (no (unknown) (unknown) Respiratory Rate (units (unknown) date) 15 unknown) (unknown) (no (unknown) (unknown) Rx Instructions: (units (unknown) date) unknown) (unknown) (no (unknown) (unknown) Scoliosis (units (unkn own) date) unknown) (unknown) (no (unknown) (unknown) Signed By: (units (unk nown) date) unknown) (unknown) (no (unknown) (unknown) Sleep disorder (units (unknown) date) unknown) (unknown) (no (unknown) (unknown) Smoking Status: (units (unknown) date) Never smoker unknown) (unknown) (no (unknown) (unknown) Social History (units (unknown) date) (Reviewed unknown) 02/05/21 @ 03:40 by María Candelaria DO) (unknown) (no (unknown) (unknown) Stated (units (unkno wn) date) complaint: unknown) shortness of breath, fall yesterday, went to ER (unknown) (no (unknown) (unknown) Status post (units (un known) date) bilateral unknown) cataract extraction (unknown) (no (unknown) (unknown) Substance Use (units ( unknown) date) Type: does not unknown) use (unknown) (no (unknown) (unknown) Surgical History (units (unknown) date) (Reviewed unknown) 02/21/21 @ 10:52 by Johnson Patel MD) (unknown) (no (unknown) (unknown) Take for pitting (units (unknown) date) swollen legs only unknown) with shortness of breath (unknown) (no (unknown) (unknown) Take only when (units (unknown) date) you are taking unknown) the lasix (unknown) (no (unknown) (unknown) Temperature 97.2 (units (unknown) date) F L 09/13/22 unknown) 17:27 (unknown) (no (unknown) (unknown) Temperature 97.2 (units (unknown) date) F L unknown) (unknown) (no (unknown) (unknown) Time Seen by (units (u nknown) date) Provider: unknown) 09/13/22 18:28 (unknown) (no (unknown) (unknown) Vital Signs - 8 (units (unknown) date) hr unknown) (unknown) (no (unknown) (unknown) Vital Signs (units (un known) date) unknown) (unknown) (no (unknown) (unknown) Vital signs: (units (u nknown) date) unknown) (unknown) (no (unknown) (unknown) alcohol intake (units (unknown) date) frequency: 0-2 unknown) drinks per day (unknown) (no (unknown) (unknown) alcohol intake: (units (unknown) date) current unknown) (unknown) (no (unknown) (unknown) capsule,extended (units (unknown) date) release unknown) (unknown) (no (unknown) (unknown) chest tightness (units (unknown) date) with Shortness of unknown) breath (unknown) (no (unknown) (unknown) fluorouracil 5 % (units (unknown) date) topical cream 1 unknown) carter topical PRN PRN skin cancer 04/29/17 (unknown) (no (unknown) (unknown) fluorouracil (units (u nknown) date) [Efudex] 5 % unknown) cream (unknown) (no (unknown) (unknown) furosemide 20 mg (units (unknown) date) tablet (Lasix) 10 unknown) mg PO QAM #10 tabs 10/01/19 (unknown) (no (unknown) (unknown) furosemide (units (unk nown) date) [Lasix] 20 mg unknown) tablet (unknown) (no (unknown) (unknown) glucosamine cardona (units (unknown) date) 2KCl-chondroit unknown) [Glucosamine Sulf-Chondroitin] 500-400 mg (unknown) (no (unknown) (unknown) glucosamine (units (un known) date) sulfate unknown) dipotassium Cl 1 cap PO DAILY ##0 04/29/17 04/30/18 (unknown) (no (unknown) (unknown) household (units (unkn own) date) members: spouse unknown) (unknown) (no (unknown) (unknown) hydrocodone 5 (units ( unknown) date) mg-acetaminophen unknown) 325 1 tab PO Q4-6H PRN pain #20 tabs 05/12/18 (unknown) (no (unknown) (unknown) hydrocodone-acet (units (unknown) date) aminophen [[place]] unknown) 5-325 mg tablet (unknown) (no (unknown) (unknown) melatonin 5 MG (units (unknown) date) tablet unknown) (unknown) (no (unknown) (unknown) melatonin 5 mg (units (unknown) date) tablet 5 mg PO unknown) QHS PRN Sleep 04/30/18 05/12/18 (unknown) (no (unknown) (unknown) metoprolol (units (unk nown) date) succinate 50 mg unknown) 50 mg PO BEDTIME 04/30/18 02/21/21 (unknown) (no (unknown) (unknown) metoprolol (units (unk nown) date) succinate 50 mg unknown) Tablet Extended Release 24 Hr (unknown) (no (unknown) (unknown) mg tablet (units (unkn own) date) ([place]) unknown) (unknown) (no (unknown) (unknown) multivitamin (units (u nknown) date) (Multiple unknown) Vitamins 1 tab PO QDAY ##0 04/29/17 04/30/18 (unknown) (no (unknown) (unknown) multivitamin (units (u nknown) date) [Multiple unknown) Vitamins] 1 EACH tablet (unknown) (no (unknown) (unknown) nitroglycerin (units ( unknown) date) 0.3 mg sublingual unknown) 0.3 mg sublingual Q5-15M PRN chest 10/01/19 (unknown) (no (unknown) (unknown) nitroglycerin (units ( unknown) date) 0.3 mg tablet, unknown) sublingual (unknown) (no (unknown) (unknown) omeprazole 20 mg (units (unknown) date) Tablet,Delayed unknown) Release (Dr/Ec) (unknown) (no (unknown) (unknown) omeprazole 20 mg (units (unknown) date) tablet,delayed 20 unknown) mg PO BID 04/30/18 02/21/21 (unknown) (no (unknown) (unknown) potassium (units (unkn own) date) chloride 8 mEq 8 unknown) meq PO DAILY #10 caps 10/01/19 (unknown) (no (unknown) (unknown) potassium (units (unkn own) date) chloride 8 mEq unknown) capsule, extended release (unknown) (no (unknown) (unknown) release (units (unkno wn) date) unknown) (unknown) (no (unknown) (unknown) sulfite (units (unkno wn) date) [SULFITE] Allergy unknown) Severe from foods Verified 09/13/22 17:27 (unknown) (no (unknown) (unknown) tablet pain #25 (units (unknown) date) tabs unknown) (unknown) (no (unknown) (unknown) tablet) (units (unkno wn) date) unknown) (unknown) (no (unknown) (unknown) tablet,extended (units (unknown) date) release 24 hr unknown) (unknown) (no (unknown) (unknown) until response; (units (unknown) date) do not exceed 3 unknown) doses per episode, take for chest pain and or (unknown) (no (unknown) (unknown) warfarin 3 mg (units ( unknown) date) tablet (Coumadin) unknown) [facility] 02/21/21 (unknown) (no (unknown) (unknown) warfarin (units (unkno wn) date) [Coumadin] 3 MG unknown) tablet Result panel 3 (unknown) (no (unknown) (unknown) (no value) (units (unk nown) date) unknown) (unknown) (no (unknown) (unknown) (Efudex) lesions (units (unknown) date) ##0 unknown) (unknown) (no (unknown) (unknown) (Glucosamine (units (u nknown) date) Sulfate 2 unknown) (unknown) (no (unknown) (unknown) 0.3 mg SL Q5-15M (units (unknown) date) PRN (Reason: unknown) chest pain) Qty: 25 0RF (unknown) (no (unknown) (unknown) [id number] (units (unkno wn) date) unknown) (unknown) (no (unknown) (unknown) 09/13/22 17:40 (units (unknown) date) unknown) (unknown) (no (unknown) (unknown) 09/13/22 (units (unkno wn) date) unknown) (unknown) (no (unknown) (unknown) 04/30/18 (units (unkno wn) date) unknown) (unknown) (no (unknown) (unknown) 1 carter Topical (units ( unknown) date) PRN PRN (Reason: unknown) skin cancer lesions) Qty: 0 (unknown) (no (unknown) (unknown) 1 cap PO DAILY (units (unknown) date) Qty: 0 unknown) (unknown) (no (unknown) (unknown) 1 tab PO Q4-6H (units (unknown) date) PRN (Reason: unknown) pain) Qty: 20 0RF (unknown) (no (unknown) (unknown) 1 tab PO QDAY (units ( unknown) date) Qty: 0 unknown) (unknown) (no (unknown) (unknown) 1 tablet PO (units (un known) date) every 4-6 hours unknown) as needed for pain (unknown) (no (unknown) (unknown) 10 mg PO QAM (units (u nknown) date) Qty: 10 0RF unknown) (unknown) (no (unknown) (unknown) 19:05 (units (unkno wn) date) unknown) (unknown) (no (unknown) (unknown) 20 mg PO BID (units (u nknown) date) unknown) (unknown) (no (unknown) (unknown) 5 mg PO QHS PRN (units (unknown) date) (Reason: Sleep) unknown) (unknown) (no (unknown) (unknown) 5 mg PO SEEINSTR (units (unknown) date) unknown) (unknown) (no (unknown) (unknown) 50 mg PO BEDTIME (units (unknown) date) unknown) (unknown) (no (unknown) (unknown) 500 (units (unkno wn) date) mg-chondroitin unknown) 400 mg capsule (unknown) (no (unknown) (unknown) 5mg every (units (unkn own) date) Saturday/2.5mg rest unknown) (unknown) (no (unknown) (unknown) 8 meq PO DAILY (units (unknown) date) Qty: 10 0RF unknown) (unknown) (no (unknown) (unknown) Activity (units (unkno wn) date) Restrictions/Harjit unknown) tional Instructions: (unknown) (no (unknown) (unknown) Afib (units (unkno wn) date) unknown) (unknown) (no (unknown) (unknown) Age/Sex: 87 / M (units (unknown) date) unknown) (unknown) (no (unknown) (unknown) Alcohol type: (units ( unknown) date) hard liquor unknown) (unknown) (no (unknown) (unknown) Allergies (units (unkn own) date) unknown) (unknown) (no (unknown) (unknown) Allergy/AdvReac (units (unknown) date) Type Severity unknown) Reaction Status Date / Time (unknown) (no (unknown) (unknown) BCC (basal cell (units (unknown) date) carcinoma of unknown) skin) (unknown) (no (unknown) (unknown) Bilateral lower (units (unknown) date) extremity edema unknown) (unknown) (no (unknown) (unknown) Blood Pressure (units (unknown) date) 107/65 09/13/22 unknown) 17:27 (unknown) (no (unknown) (unknown) Blood Pressure (units (unknown) date) 108/63 unknown) 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) (unknown) (no (unknown) (unknown) Capsule (units (unkno wn) date) unknown) (unknown) (no (unknown) (unknown) Chest [XR chest (units (unknown) date) 2V] Stat unknown) (unknown) (no (unknown) (unknown) Chief complaint: (units (unknown) date) Shortness of unknown) Breath/Dyspnea (unknown) (no (unknown) (unknown) Clinical (units (unkno wn) date) Impression: unknown) (unknown) (no (unknown) (unknown) Closed (units (unkno wn) date) nondisplaced unknown) fracture of pelvis (unknown) (no (unknown) (unknown) Course (units (unkno wn) date) unknown) (unknown) (no (unknown) (unknown) : 1935 (units (unknown) date) Acct:[id number] unknown) (unknown) (no (unknown) (unknown) Date of Service: (units (unknown) date) 09/13/22 unknown) (unknown) (no (unknown) (unknown) Departure (units (unkn own) date) unknown) (unknown) (no (unknown) (unknown) Diabetes (units (unkno wn) date) unknown) (unknown) (no (unknown) (unknown) Discharge Plan (units (unknown) date) unknown) (unknown) (no (unknown) (unknown) ED Orders (units (unkn own) date) unknown) (unknown) (no (unknown) (unknown) ER Physician: (units ( unknown) date) Fito Pagan unknown) D.O. (unknown) (no (unknown) (unknown) Easy (units (unkno wn) date) bruisability unknown) (unknown) (no (unknown) (unknown) Emergency Report (units (unknown) date) unknown) (unknown) (no (unknown) (unknown) Exam (units (unkno wn) date) unknown) (unknown) (no (unknown) (unknown) Fracture of rib, (units (unknown) date) Shortness of unknown) breath (unknown) (no (unknown) (unknown) Fragile skin (units (u nknown) date) unknown) (unknown) (no (unknown) (unknown) GERD (units (unkno wn) date) (gastroesophageal unknown) reflux disease) (unknown) (no (unknown) (unknown) General (units (unkno wn) date) unknown) (unknown) (no (unknown) (unknown) HPI - General (units ( unknown) date) Adult unknown) (unknown) (no (unknown) (unknown) Home Medications (units (unknown) date) unknown) (unknown) (no (unknown) (unknown) Hx of (units (unkno wn) date) arthroscopy of unknown) shoulder (unknown) (no (unknown) (unknown) Hx of hernia (units (u nknown) date) repair unknown) (unknown) (no (unknown) (unknown) Hx of (units (unkno wn) date) tonsillectomy unknown) (unknown) (no (unknown) (unknown) I recommend that (units (unknown) date) you continue to unknown) take all of your medications as directed to (unknown) (no (unknown) (unknown) Initial Vital (units ( unknown) date) Signs unknown) (unknown) (no (unknown) (unknown) Initial Vital (units ( unknown) date) Signs: unknown) (unknown) (no (unknown) (unknown) Instructions: DI (units (unknown) date) for Rib Fracture unknown) (unknown) (no (unknown) (unknown) [facility] (units (unknown) date) [address] unknown) [place] [address] (unknown) (no (unknown) (unknown) KCL-Chondroitin) (units (unknown) date) unknown) (unknown) (no (unknown) (unknown) Lauri Vasquez MD (units (unknown) date) [Primary Care unknown) Provider] (unknown) (no (unknown) (unknown) Left foot drop (units (unknown) date) unknown) (unknown) (no (unknown) (unknown) Medical History (units (unknown) date) (Reviewed unknown) 02/21/21 @ 10:52 by Johnson Patel MD) (unknown) (no (unknown) (unknown) Medication (units (unk nown) date) Instructions unknown) Recorded Confirmed (unknown) (no (unknown) (unknown) Medication (units (unk nown) date) Instructions unknown) Recorded (unknown) (no (unknown) (unknown) Mixed (units (unkno wn) date) hyperlipidemia unknown) (unknown) (no (unknown) (unknown) No Action (units (unkn own) date) unknown) (unknown) (no (unknown) (unknown) Numbness (units (unkno wn) date) unknown) (unknown) (no (unknown) (unknown) Ordered: (units (unkno wn) date) unknown) (unknown) (no (unknown) (unknown) Orders (units (unkno wn) date) unknown) (unknown) (no (unknown) (unknown) Oxygen Delivery (units (unknown) date) Method 09/13/22 unknown) 17:27 (unknown) (no (unknown) (unknown) Oxygen Delivery (units (unknown) date) Method Room Air unknown) (unknown) (no (unknown) (unknown) Pacemaker (units (unkn own) date) unknown) (unknown) (no (unknown) (unknown) Patient (units (unkno wn) date) Disposition: Home unknown) (unknown) (no (unknown) (unknown) Patient History (units (unknown) date) unknown) (unknown) (no (unknown) (unknown) Patient: (units (unkno wn) date) White,Dallin A unknown) MR#: [id number] (unknown) (no (unknown) (unknown) Penicillins (units (un known) date) [PENICILLINS] unknown) Allergy Mild Rash Verified 09/13/22 17:27 (unknown) (no (unknown) (unknown) Pneumonia (units (unkn own) date) unknown) (unknown) (no (unknown) (unknown) Prescriptions: (units (unknown) date) unknown) (unknown) (no (unknown) (unknown) Previous Rx's (units ( unknown) date) unknown) (unknown) (no (unknown) (unknown) Pulse Oximetry (units (unknown) date) 98 09/13/22 17:27 unknown) (unknown) (no (unknown) (unknown) Pulse Oximetry (units (unknown) date) 98 unknown) (unknown) (no (unknown) (unknown) Pulse Rate 75 (units ( unknown) date) 09/13/22 17:27 unknown) (unknown) (no (unknown) (unknown) Pulse Rate 80 (units ( unknown) date) unknown) (unknown) (no (unknown) (unknown) Referrals: (units (unk nown) date) unknown) (unknown) (no (unknown) (unknown) Related Data (units (u nknown) date) unknown) (unknown) (no (unknown) (unknown) Respiratory Rate (units (unknown) date) 15 09/13/22 17:27 unknown) (unknown) (no (unknown) (unknown) Respiratory Rate (units (unknown) date) 20 unknown) (unknown) (no (unknown) (unknown) Rx Instructions: (units (unknown) date) unknown) (unknown) (no (unknown) (unknown) Scoliosis (units (unkn own) date) unknown) (unknown) (no (unknown) (unknown) Signed By: (units (unk nown) date) unknown) (unknown) (no (unknown) (unknown) Sleep disorder (units (unknown) date) unknown) (unknown) (no (unknown) (unknown) Smoking Status: (units (unknown) date) Never smoker unknown) (unknown) (no (unknown) (unknown) Social History (units (unknown) date) (Reviewed unknown) 02/05/21 @ 03:40 by María Candelaria DO) (unknown) (no (unknown) (unknown) Stand Alone (units (un known) date) Forms: Patient unknown) Portal/API (unknown) (no (unknown) (unknown) Stated (units (unkno wn) date) complaint: unknown) shortness of breath, fall yesterday, went to ER (unknown) (no (unknown) (unknown) Status post (units (un known) date) bilateral unknown) cataract extraction (unknown) (no (unknown) (unknown) Substance Use (units ( unknown) date) Type: does not unknown) use (unknown) (no (unknown) (unknown) Surgical History (units (unknown) date) (Reviewed unknown) 02/21/21 @ 10:52 by Johnson Patel MD) (unknown) (no (unknown) (unknown) Take for pitting (units (unknown) date) swollen legs only unknown) with shortness of breath (unknown) (no (unknown) (unknown) Take only when (units (unknown) date) you are taking unknown) the lasix (unknown) (no (unknown) (unknown) Temperature 97.2 (units (unknown) date) F L 09/13/22 unknown) 17:27 (unknown) (no (unknown) (unknown) Time Seen by (units (u nknown) date) Provider: unknown) 09/13/22 18:28 (unknown) (no (unknown) (unknown) Vital Signs - 8 (units (unknown) date) hr unknown) (unknown) (no (unknown) (unknown) Vital Signs (units (un known) date) unknown) (unknown) (no (unknown) (unknown) Vital signs: (units (u nknown) date) unknown) (unknown) (no (unknown) (unknown) alcohol intake (units (unknown) date) frequency: 0-2 unknown) drinks per day (unknown) (no (unknown) (unknown) alcohol intake: (units (unknown) date) current unknown) (unknown) (no (unknown) (unknown) capsule,extended (units (unknown) date) release unknown) (unknown) (no (unknown) (unknown) chest tightness (units (unknown) date) with Shortness of unknown) breath (unknown) (no (unknown) (unknown) department for (units (unknown) date) any new or unknown) worsening symptoms. (unknown) (no (unknown) (unknown) fluorouracil 5 % (units (unknown) date) topical cream 1 unknown) carter topical PRN PRN skin cancer 04/29/17 (unknown) (no (unknown) (unknown) fluorouracil (units (u nknown) date) [Efudex] 5 % unknown) cream (unknown) (no (unknown) (unknown) furosemide 20 mg (units (unknown) date) tablet (Lasix) 10 unknown) mg PO QAM #10 tabs 10/01/19 (unknown) (no (unknown) (unknown) furosemide (units (unk nown) date) [Lasix] 20 mg unknown) tablet (unknown) (no (unknown) (unknown) glucosamine cardona (units (unknown) date) 2KCl-chondroit unknown) [Glucosamine Sulf-Chondroitin] 500-400 mg (unknown) (no (unknown) (unknown) glucosamine (units (un known) date) sulfate unknown) dipotassium Cl 1 cap PO DAILY ##0 04/29/17 04/30/18 (unknown) (no (unknown) (unknown) household (units (unkn own) date) members: spouse unknown) (unknown) (no (unknown) (unknown) hydrocodone 5 (units ( unknown) date) mg-acetaminophen unknown) 325 1 tab PO Q4-6H PRN pain #20 tabs 05/12/18 (unknown) (no (unknown) (unknown) hydrocodone-acet (units (unknown) date) aminophen [[place]] unknown) 5-325 mg tablet (unknown) (no (unknown) (unknown) include the pain (units (unknown) date) medication. Be unknown) sure that you are occasionally taking deep b (unknown) (no (unknown) (unknown) melatonin 5 MG (units (unknown) date) tablet unknown) (unknown) (no (unknown) (unknown) melatonin 5 mg (units (unknown) date) tablet 5 mg PO unknown) QHS PRN Sleep 04/30/18 05/12/18 (unknown) (no (unknown) (unknown) metoprolol (units (unk nown) date) succinate 50 mg unknown) 50 mg PO BEDTIME 04/30/18 02/21/21 (unknown) (no (unknown) (unknown) metoprolol (units (unk nown) date) succinate 50 mg unknown) Tablet Extended Release 24 Hr (unknown) (no (unknown) (unknown) mg tablet (units (unkn own) date) ([place]) unknown) (unknown) (no (unknown) (unknown) multivitamin (units (u nknown) date) (Multiple unknown) Vitamins 1 tab PO QDAY ##0 04/29/17 04/30/18 (unknown) (no (unknown) (unknown) multivitamin (units (u nknown) date) [Multiple unknown) Vitamins] 1 EACH tablet (unknown) (no (unknown) (unknown) nitroglycerin (units ( unknown) date) 0.3 mg sublingual unknown) 0.3 mg sublingual Q5-15M PRN chest 10/01/19 (unknown) (no (unknown) (unknown) nitroglycerin (units ( unknown) date) 0.3 mg tablet, unknown) sublingual (unknown) (no (unknown) (unknown) omeprazole 20 mg (units (unknown) date) Tablet,Delayed unknown) Release (Dr/Ec) (unknown) (no (unknown) (unknown) omeprazole 20 mg (units (unknown) date) tablet,delayed 20 unknown) mg PO BID 04/30/18 02/21/21 (unknown) (no (unknown) (unknown) potassium (units (unkn own) date) chloride 8 mEq 8 unknown) meq PO DAILY #10 caps 10/01/19 (unknown) (no (unknown) (unknown) potassium (units (unkn own) date) chloride 8 mEq unknown) capsule, extended release (unknown) (no (unknown) (unknown) reaths. Contact (units (unknown) date) your primary unknown) doctor for a follow-up. Return to the emergency (unknown) (no (unknown) (unknown) release (units (unkno wn) date) unknown) (unknown) (no (unknown) (unknown) sulfite (units (unkno wn) date) [SULFITE] Allergy unknown) Severe from foods Verified 09/13/22 17:27 (unknown) (no (unknown) (unknown) tablet pain #25 (units (unknown) date) tabs unknown) (unknown) (no (unknown) (unknown) tablet) (units (unkno wn) date) unknown) (unknown) (no (unknown) (unknown) tablet,extended (units (unknown) date) release 24 hr unknown) (unknown) (no (unknown) (unknown) until response; (units (unknown) date) do not exceed 3 unknown) doses per episode, take for chest pain and or (unknown) (no (unknown) (unknown) warfarin 3 mg (units ( unknown) date) tablet (Coumadin) unknown) 5 mg PO SEEINSTR 04/30/18 02/21/21 (unknown) (no (unknown) (unknown) warfarin (units (unkno wn) date) [Coumadin] 3 MG unknown) tablet Result panel 4 (unknown) (no (unknown) (unknown) (no value) (units (unk nown) date) unknown) (unknown) (no (unknown) (unknown) <Electronically (units (unknown) date) signed by Fito Pagan D.O.> (unknown) (no (unknown) (unknown) (Efudex) lesions (units (unknown) date) ##0 unknown) (unknown) (no (unknown) (unknown) (Glucosamine (units (u nknown) date) Sulfate 2 unknown) (unknown) (no (unknown) (unknown) 0.3 mg SL Q5-15M (units (unknown) date) PRN (Reason: unknown) chest pain) Qty: 25 0RF (unknown) (no (unknown) (unknown) [id number] (units (unkno wn) date) unknown) (unknown) (no (unknown) (unknown) 09/13/22 17:40 (units (unknown) date) unknown) (unknown) (no (unknown) (unknown) 09/13/22 (units (unkno wn) date) unknown) (unknown) (no (unknown) (unknown) 09/14/22 0149 (units ( unknown) date) unknown) (unknown) (no (unknown) (unknown) 04/30/18 (units (unkno wn) date) unknown) (unknown) (no (unknown) (unknown) 1 carter Topical (units ( unknown) date) PRN PRN (Reason: unknown) skin cancer lesions) Qty: 0 (unknown) (no (unknown) (unknown) 1 cap PO DAILY (units (unknown) date) Qty: 0 unknown) (unknown) (no (unknown) (unknown) 1 tab PO Q4-6H (units (unknown) date) PRN (Reason: unknown) pain) Qty: 20 0RF (unknown) (no (unknown) (unknown) 1 tab PO QDAY (units ( unknown) date) Qty: 0 unknown) (unknown) (no (unknown) (unknown) 1 tablet PO (units (un known) date) every 4-6 hours unknown) as needed for pain (unknown) (no (unknown) (unknown) 1. Cardiomegaly (units (unknown) date) and diffuse unknown) interstitial prominence suggesting CHF. (unknown) (no (unknown) (unknown) 10 mg PO QAM (units (u nknown) date) Qty: 10 0RF unknown) (unknown) (no (unknown) (unknown) [address] (units (unknown) date) unknown) (unknown) (no (unknown) (unknown) 19:05 (units (unkno wn) date) unknown) (unknown) (no (unknown) (unknown) 2. Horizontal (units ( unknown) date) right base unknown) opacity may be atelectasis, effusion, or edema. (unknown) (no (unknown) (unknown) 20 mg PO BID (units (u nknown) date) unknown) (unknown) (no (unknown) (unknown) 3. No evidence (units (unknown) date) of pneumothorax. unknown) (unknown) (no (unknown) (unknown) 4. No visible (units ( unknown) date) displaced rib unknown) fractures.? (unknown) (no (unknown) (unknown) 5 mg PO QHS PRN (units (unknown) date) (Reason: Sleep) unknown) (unknown) (no (unknown) (unknown) 5 mg PO SEEINSTR (units (unknown) date) unknown) (unknown) (no (unknown) (unknown) 50 mg PO BEDTIME (units (unknown) date) unknown) (unknown) (no (unknown) (unknown) 500 (units (unkno wn) date) mg-chondroitin unknown) 400 mg capsule (unknown) (no (unknown) (unknown) 5mg every (units (unkn own) date) Saturday/2.5mg rest unknown) (unknown) (no (unknown) (unknown) 8 meq PO DAILY (units (unknown) date) Qty: 10 0RF unknown) (unknown) (no (unknown) (unknown) ? (units (unkno wn) date) unknown) (unknown) (no (unknown) (unknown) Accession (units (unkn own) date) Number: unknown) [id number] ?? (unknown) (no (unknown) (unknown) Acct:[id number] (units (unknown) date) unknown) (unknown) (no (unknown) (unknown) Activity (units (unkno wn) date) Restrictions/Harjit unknown) tional Instructions: (unknown) (no (unknown) (unknown) Afib (units (unkno wn) date) unknown) (unknown) (no (unknown) (unknown) Age/Sex: 87 / M (units (unknown) date) unknown) (unknown) (no (unknown) (unknown) Alcohol type: (units ( unknown) date) hard liquor unknown) (unknown) (no (unknown) (unknown) Allergies (units (unkn own) date) unknown) (unknown) (no (unknown) (unknown) Allergy/AdvReac (units (unknown) date) Type Severity unknown) Reaction Status Date / Time (unknown) (no (unknown) (unknown) TATIANA Escalera (units ( unknown) date) [id number] unknown) (unknown) (no (unknown) (unknown) Approved by: (units (u nknown) date) Loretta Orosco unknownAnalisa Storm on 09/13/2022 at 17:43? (unknown) (no (unknown) (unknown) Auscultation: (units ( unknown) date) clear to unknown) auscultation bilaterally (unknown) (no (unknown) (unknown) BCC (basal cell (units (unknown) date) carcinoma of unknown) skin) (unknown) (no (unknown) (unknown) Because of the (units (unknown) date) shortness of unknown) breath that he had earlier today he asked family to (unknown) (no (unknown) (unknown) Bilateral lower (units (unknown) date) extremity edema unknown) (unknown) (no (unknown) (unknown) Blood Pressure (units (unknown) date) 107/65 09/13/22 unknown) 17:27 (unknown) (no (unknown) (unknown) Blood Pressure (units (unknown) date) 108/63 unknown) (unknown) (no (unknown) (unknown) Bones and chest (units (unknown) date) wall:? No unknown) suspicious bony abnormalities.? Degenerative changes (unknown) (no (unknown) (unknown) COMPARISON:? (units (u nknown) date) [facility], unknown) CR, XR CHEST 1V, 02/05/2021, 3:04. 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) (unknown) (no (unknown) (unknown) Capsule (units (unkno wn) date) unknown) (unknown) (no (unknown) (unknown) Cardio (units (unkno wn) date) unknown) (unknown) (no (unknown) (unknown) Cardiovascular (units (unknown) date) unknown) (unknown) (no (unknown) (unknown) Cardiovascular: (units (unknown) date) Reports system unknown) reviewed and no additional complaints, except as (unknown) (no (unknown) (unknown) Chest [XR chest (units (unknown) date) 2V] Stat unknown) (unknown) (no (unknown) (unknown) Chest x-ray: (units (u nknown) date) unknown) (unknown) (no (unknown) (unknown) Chest (units (unkno wn) date) unknown) (unknown) (no (unknown) (unknown) Chief complaint: (units (unknown) date) Shortness of unknown) Breath/Dyspnea (unknown) (no (unknown) (unknown) Clinical (units (unkno wn) date) Impression: unknown) (unknown) (no (unknown) (unknown) Closed (units (unkno wn) date) nondisplaced unknown) fracture of pelvis (unknown) (no (unknown) (unknown) Condition is at (units (unknown) date) treatment goal?: unknown) Yes (unknown) (no (unknown) (unknown) Condition is:: (units (unknown) date) Well Controlled unknown) (unknown) (no (unknown) (unknown) Const (units (unkno wn) date) unknown) (unknown) (no (unknown) (unknown) Constitutional (units (unknown) date) unknown) (unknown) (no (unknown) (unknown) Constitutional: (units (unknown) date) Reports system unknown) reviewed and no additional complaints, except as (unknown) (no (unknown) (unknown) Course (units (unkno wn) date) unknown) (unknown) (no (unknown) (unknown) : 1935 (units (unknown) date) Acct:[id number] unknown) (unknown) (no (unknown) (unknown) : 1935 (units (unknown) date) unknown) (unknown) (no (unknown) (unknown) Date of Service: (units (unknown) date) 09/13/22 unknown) (unknown) (no (unknown) (unknown) Departure (units (unkn own) date) unknown) (unknown) (no (unknown) (unknown) Diabetes (units (unkno wn) date) unknown) (unknown) (no (unknown) (unknown) Dictated by: (units (u nknown) date) devonte Combs M.D. on 09/13/2022 at 17:40 ? ? (unknown) (no (unknown) (unknown) Differential (units (u nknown) date) Diagnosis unknown) (unknown) (no (unknown) (unknown) Differential (units (u nknown) date) Diagnosis: unknown) Pneumothorax, rib fractures, pulmonary contusion, ACS, (unknown) (no (unknown) (unknown) Discharge Plan (units (unknown) date) unknown) (unknown) (no (unknown) (unknown) ED Orders (units (unkn own) date) unknown) (unknown) (no (unknown) (unknown) ER Physician: (units ( unknown) date) Fito Pagan unknown) D.O. (unknown) (no (unknown) (unknown) Easy (units (unkno wn) date) bruisability unknown) (unknown) (no (unknown) (unknown) Effort + (units (unkno wn) date) Inspection: unknown) normal respiratory effort (unknown) (no (unknown) (unknown) Emergency Report (units (unknown) date) unknown) (unknown) (no (unknown) (unknown) Exam (units (unkno wn) date) unknown) (unknown) (no (unknown) (unknown) Extrem (units (unkno wn) date) unknown) (unknown) (no (unknown) (unknown) FINDINGS:? (units (unk nown) date) unknown) (unknown) (no (unknown) (unknown) Fracture of rib, (units (unknown) date) Shortness of unknown) breath (unknown) (no (unknown) (unknown) Fragile skin (units (u nknown) date) unknown) (unknown) (no (unknown) (unknown) GERD (units (unkno wn) date) (gastroesophageal unknown) reflux disease) (unknown) (no (unknown) (unknown) General (units (unkno wn) date) unknown) (unknown) (no (unknown) (unknown) General: (units (unkno wn) date) cooperative, unknown) comfortable and No ill appearing (unknown) (no (unknown) (unknown) General: no (units (un known) date) rashes or lesions unknown) noted (unknown) (no (unknown) (unknown) General: normal (units (unknown) date) to inspection and unknown) capillary refill normal (unknown) (no (unknown) (unknown) General: patient (units (unknown) date) alert, patient unknown) awake and moves all extremities (unknown) (no (unknown) (unknown) HPI - General (units ( unknown) date) Adult unknown) (unknown) (no (unknown) (unknown) HPI narrative: (units (unknown) date) unknown) (unknown) (no (unknown) (unknown) He has pain (units (un known) date) medications. unknown) There is no indication for antibiotics. No (unknown) (no (unknown) (unknown) Hematologic/Lymp (units (unknown) date) hatic unknown) (unknown) (no (unknown) (unknown) History of (units (unk nown) date) Present Illness unknown) (unknown) (no (unknown) (unknown) Home Medications (units (unknown) date) unknown) (unknown) (no (unknown) (unknown) Hx of (units (unkno wn) date) arthroscopy of unknown) shoulder (unknown) (no (unknown) (unknown) Hx of hernia (units (u nknown) date) repair unknown) (unknown) (no (unknown) (unknown) Hx of (units (unkno wn) date) tonsillectomy unknown) (unknown) (no (unknown) (unknown) I recommend that (units (unknown) date) you continue to unknown) take all of your medications as directed to (unknown) (no (unknown) (unknown) IMPRESSION:? (units (u nknown) date) unknown) (unknown) (no (unknown) (unknown) INDICATIONS:? (units ( unknown) date) fall last unknown) night,known rib fractures,pneumo, increase SOB (unknown) (no (unknown) (unknown) Imaging Data (units (u nknown) date) unknown) (unknown) (no (unknown) (unknown) Initial Vital (units ( unknown) date) Signs unknown) (unknown) (no (unknown) (unknown) Initial Vital (units ( unknown) date) Signs: unknown) (unknown) (no (unknown) (unknown) Instructions: DI (units (unknown) date) for Rib Fracture unknown) (unknown) (no (unknown) (unknown) [facility] (units (unknown) date) [address] unknown) [place] [address] (unknown) (no (unknown) (unknown) [facility] (units (unknown) date) unknown) (unknown) (no (unknown) (unknown) KCL-Chondroitin) (units (unknown) date) unknown) (unknown) (no (unknown) (unknown) Lauri Vasquez MD (units (unknown) date) [Primary Care unknown) Provider] (unknown) (no (unknown) (unknown) Left foot drop (units (unknown) date) unknown) (unknown) (no (unknown) (unknown) Limitations: no (units (unknown) date) limitations unknown) (unknown) (no (unknown) (unknown) Loc: ED (units (unkno wn) date) unknown) (unknown) (no (unknown) (unknown) Lungs and (units (unkn own) date) pleura:? Low lung unknown) volumes.? No visible pneumothorax.? Horizontal (unknown) (no (unknown) (unknown) MDM Narrative (units ( unknown) date) unknown) (unknown) (no (unknown) (unknown) MR#: [id number] (units (unknown) date) unknown) (unknown) (no (unknown) (unknown) Mediastinum:? (units ( unknown) date) Mediastinal unknown) contours are normal.? Heart size is enlarged.? (unknown) (no (unknown) (unknown) Medical Decision (units (unknown) date) Making unknown) (unknown) (no (unknown) (unknown) Medical History (units (unknown) date) (Reviewed unknown) 09/14/22 @ 01:47 by Fito Pagan DO) (unknown) (no (unknown) (unknown) Medical Records (units (unknown) date) unknown) (unknown) (no (unknown) (unknown) Medical decision (units (unknown) date) making narrative: unknown) (unknown) (no (unknown) (unknown) Medical records (units (unknown) date) reviewed: Yes I unknown) reviewed the patient's medical records. (unknown) (no (unknown) (unknown) Medication (units (unk nown) date) Instructions unknown) Recorded Confirmed (unknown) (no (unknown) (unknown) Medication (units (unk nown) date) Instructions unknown) Recorded (unknown) (no (unknown) (unknown) Mixed (units (unkno wn) date) hyperlipidemia unknown) (unknown) (no (unknown) (unknown) Mode of arrival: (units (unknown) date) Ambulatory unknown) (unknown) (no (unknown) (unknown) Neuro (units (unkno wn) date) unknown) (unknown) (no (unknown) (unknown) Neurologic (units (unk nown) date) unknown) (unknown) (no (unknown) (unknown) Neurologic: (units (un known) date) Reports system unknown) reviewed and no additional complaints, except as (unknown) (no (unknown) (unknown) No Action (units (unkn own) date) unknown) (unknown) (no (unknown) (unknown) Numbness (units (unkno wn) date) unknown) (unknown) (no (unknown) (unknown) On (units (unkno wn) date) Anticoagulants: unknown) No (unknown) (no (unknown) (unknown) Ordered: (units (unkno wn) date) unknown) (unknown) (no (unknown) (unknown) Ordering (units (unkno wn) date) Provider: unknown) Sheree Lawler D.O. (unknown) (no (unknown) (unknown) Orders (units (unkno wn) date) unknown) (unknown) (no (unknown) (unknown) Other: (units (unkno wn) date) unknown) (unknown) (no (unknown) (unknown) Oxygen Delivery (units (unknown) date) Method 09/13/22 unknown) 17:27 (unknown) (no (unknown) (unknown) Oxygen Delivery (units (unknown) date) Method Room Air unknown) (unknown) (no (unknown) (unknown) PROCEDURE:? XR (units (unknown) date) CHEST 2V unknown) (unknown) (no (unknown) (unknown) Pacemaker (units (unkn own) date) unknown) (unknown) (no (unknown) (unknown) Patient (units (unkno wn) date) Disposition: Home unknown) (unknown) (no (unknown) (unknown) Patient History (units (unknown) date) unknown) (unknown) (no (unknown) (unknown) Patient has no (units (unknown) date) respiratory unknown) distress. Clear lungs. Chest x-ray shows no (unknown) (no (unknown) (unknown) Patient is an (units ( unknown) date) 87-year-old male unknown) who yesterday sustained a fall. He went to an (unknown) (no (unknown) (unknown) Patient: (units (unkno wn) date) WhiteJorgeDallin A unknown) MR#: [id number] (unknown) (no (unknown) (unknown) Patient: (units (unkno wn) date) White,Dallin A unknown) (unknown) (no (unknown) (unknown) Penicillins (units (un known) date) [PENICILLINS] unknown) Allergy Mild Rash Verified 09/13/22 17:27 (unknown) (no (unknown) (unknown) Pneumonia (units (unkn own) date) unknown) (unknown) (no (unknown) (unknown) Prescriptions: (units (unknown) date) unknown) (unknown) (no (unknown) (unknown) Previous Rx's (units ( unknown) date) unknown) (unknown) (no (unknown) (unknown) Procedure: XR (units ( unknown) date) chest 2V unknown) (unknown) (no (unknown) (unknown) Pulse Oximetry (units (unknown) date) 98 09/13/22 17:27 unknown) (unknown) (no (unknown) (unknown) Pulse Oximetry (units (unknown) date) 98 unknown) (unknown) (no (unknown) (unknown) Pulse Rate 75 (units ( unknown) date) 09/13/22 17:27 unknown) (unknown) (no (unknown) (unknown) Pulse Rate 80 (units ( unknown) date) unknown) (unknown) (no (unknown) (unknown) Radiologist's (units ( unknown) date) Impression: unknown) (unknown) (no (unknown) (unknown) Rate: regular (units ( unknown) date) rate unknown) (unknown) (no (unknown) (unknown) Referrals: (units (unk nown) date) unknown) (unknown) (no (unknown) (unknown) Related Data (units (u nknown) date) unknown) (unknown) (no (unknown) (unknown) Resp (units (unkno wn) date) unknown) (unknown) (no (unknown) (unknown) Respiratory Rate (units (unknown) date) 15 09/13/22 17:27 unknown) (unknown) (no (unknown) (unknown) Respiratory Rate (units (unknown) date) 20 unknown) (unknown) (no (unknown) (unknown) Respiratory (units (un known) date) unknown) (unknown) (no (unknown) (unknown) Respiratory: (units (u nknown) date) Reports system unknown) reviewed and no additional complaints, except as (unknown) (no (unknown) (unknown) Review of (units (unkn own) date) Systems unknown) (unknown) (no (unknown) (unknown) Rx Instructions: (units (unknown) date) unknown) (unknown) (no (unknown) (unknown) Scoliosis (units (unkn own) date) unknown) (unknown) (no (unknown) (unknown) Signed By: (units (unk nown) date) unknown) (unknown) (no (unknown) (unknown) Signed (units (unkno wn) date) unknown) (unknown) (no (unknown) (unknown) Skin (units (unkno wn) date) unknown) (unknown) (no (unknown) (unknown) Sleep disorder (units (unknown) date) unknown) (unknown) (no (unknown) (unknown) Smoking Status: (units (unknown) date) Never smoker unknown) (unknown) (no (unknown) (unknown) Social History (units (unknown) date) (Reviewed unknown) 09/14/22 @ 01:47 by Fito Pagan DO) (unknown) (no (unknown) (unknown) Source: patient (units (unknown) date) unknown) (unknown) (no (unknown) (unknown) Stand Alone (units (un known) date) Forms: Patient unknown) Portal/API (unknown) (no (unknown) (unknown) Stated (units (unkno wn) date) complaint: unknown) shortness of breath, fall yesterday, went to ER (unknown) (no (unknown) (unknown) Status post (units (un known) date) bilateral unknown) cataract extraction (unknown) (no (unknown) (unknown) Substance Use (units ( unknown) date) Type: does not unknown) use (unknown) (no (unknown) (unknown) Surgical History (units (unknown) date) (Reviewed unknown) 02/21/21 @ 10:52 by Johnson Patel MD) (unknown) (no (unknown) (unknown) Surgical changes (units (unknown) date) and devices:? unknown) Dual lead left-sided transvenous pacemaker. (unknown) (no (unknown) (unknown) TECHNIQUE:? 2 (units ( unknown) date) views of the unknown) chest were acquired.? (unknown) (no (unknown) (unknown) Take for pitting (units (unknown) date) swollen legs only unknown) with shortness of breath (unknown) (no (unknown) (unknown) Take only when (units (unknown) date) you are taking unknown) the lasix (unknown) (no (unknown) (unknown) Temperature 97.2 (units (unknown) date) F L 09/13/22 unknown) 17:27 (unknown) (no (unknown) (unknown) Tenderness to (units ( unknown) date) palpation right unknown) lateral/posterior lower ribs (unknown) (no (unknown) (unknown) The emergency (units ( unknown) date) department note unknown) is not available for my review however I do have (unknown) (no (unknown) (unknown) Time Seen by (units (u nknown) date) Provider: unknown) 09/13/22 18:28 (unknown) (no (unknown) (unknown) Vital Signs - 8 (units (unknown) date) hr unknown) (unknown) (no (unknown) (unknown) Vital Signs (units (un known) date) unknown) (unknown) (no (unknown) (unknown) Vital signs: (units (u nknown) date) unknown) (unknown) (no (unknown) (unknown) XRay Report (units (un known) date) unknown) (unknown) (no (unknown) (unknown) a bit of (units (unkno wn) date) discomfort but it unknown) is what he moves. He does admit that he has had (unknown) (no (unknown) (unknown) actually states (units (unknown) date) that just sitting unknown) there on the gurney he actually isn't in quite (unknown) (no (unknown) (unknown) alcohol intake (units (unknown) date) frequency: 0-2 unknown) drinks per day (unknown) (no (unknown) (unknown) alcohol intake: (units (unknown) date) current unknown) (unknown) (no (unknown) (unknown) breathing. (units (unk nown) date) Unsure if this is unknown) related to the issues that he is had with (unknown) (no (unknown) (unknown) breaths. Contact (units (unknown) date) your primary unknown) doctor for a follow-up. Return to the emergency (unknown) (no (unknown) (unknown) bring him in for (units (unknown) date) further unknown) evaluation. (unknown) (no (unknown) (unknown) capsule,extended (units (unknown) date) release unknown) (unknown) (no (unknown) (unknown) chair at home. (units (unknown) date) He got up from unknown) his chair. Would into use the restroom and (unknown) (no (unknown) (unknown) chest tightness (units (unknown) date) with Shortness of unknown) breath (unknown) (no (unknown) (unknown) department for (units (unknown) date) any new or unknown) worsening symptoms. (unknown) (no (unknown) (unknown) discharged home (units (unknown) date) with pain unknown) medications. That discharge was actually this (unknown) (no (unknown) (unknown) documented (units (unk nown) date) unknown) (unknown) (no (unknown) (unknown) extended period (units (unknown) date) of time. He had unknown) repeat x-rays performed which showed (unknown) (no (unknown) (unknown) family/friend at (units (unknown) date) bedside bowel unknown) return precautions. Will discharge patient home. (unknown) (no (unknown) (unknown) fluorouracil 5 % (units (unknown) date) topical cream 1 unknown) carter topical PRN PRN skin cancer 04/29/17 (unknown) (no (unknown) (unknown) fluorouracil (units (u nknown) date) [Efudex] 5 % unknown) cream (unknown) (no (unknown) (unknown) for air. This (units ( unknown) date) has been unknown) intermittent and not a new after his injury yesterday. (unknown) (no (unknown) (unknown) fractured ribs. (units (unknown) date) He is afebrile. I unknown) suspect that he had not taken any of his (unknown) (no (unknown) (unknown) fractures that (units (unknown) date) are not unknown) displaced. He also had a trace right pneumothorax and (unknown) (no (unknown) (unknown) furosemide 20 mg (units (unknown) date) tablet (Lasix) 10 unknown) mg PO QAM #10 tabs 10/01/19 (unknown) (no (unknown) (unknown) furosemide (units (unk nown) date) [Lasix] 20 mg unknown) tablet (unknown) (no (unknown) (unknown) glucosamine cardona (units (unknown) date) 2KCl-chondroit unknown) [Glucosamine Sulf-Chondroitin] 500-400 mg (unknown) (no (unknown) (unknown) glucosamine (units (un known) date) sulfate unknown) dipotassium Cl 1 cap PO DAILY ##0 04/29/17 04/30/18 (unknown) (no (unknown) (unknown) he was in very (units (unknown) date) extreme pain at unknown) the time which I suspect worsened his problems (unknown) (no (unknown) (unknown) hemothorax and (units (unknown) date) other unknown) (unknown) (no (unknown) (unknown) household (units (unkn own) date) members: spouse unknown) (unknown) (no (unknown) (unknown) hydrocodone 5 (units ( unknown) date) mg-acetaminophen unknown) 325 1 tab PO Q4-6H PRN pain #20 tabs 05/12/18 (unknown) (no (unknown) (unknown) hydrocodone-acet (units (unknown) date) aminophen [[place]] unknown) 5-325 mg tablet (unknown) (no (unknown) (unknown) improvement/reso (units (unknown) date) lution of the unknown) pneumothorax and he was discharged home. He was (unknown) (no (unknown) (unknown) in the (units (unkno wn) date) unknown) (unknown) (no (unknown) (unknown) include the pain (units (unknown) date) medication. Be unknown) sure that you are occasionally taking deep (unknown) (no (unknown) (unknown) indication for (units (unknown) date) admission to the unknown) hospital. He was given very strict return (unknown) (no (unknown) (unknown) issues with (units (un known) date) breathing in the unknown) past. He states that at night he wakes up gasping (unknown) (no (unknown) (unknown) left effusion. (units (unknown) date) unknown) (unknown) (no (unknown) (unknown) melatonin 5 MG (units (unknown) date) tablet unknown) (unknown) (no (unknown) (unknown) melatonin 5 mg (units (unknown) date) tablet 5 mg PO unknown) QHS PRN Sleep 04/30/18 05/12/18 (unknown) (no (unknown) (unknown) metoprolol (units (unk nown) date) succinate 50 mg unknown) 50 mg PO BEDTIME 04/30/18 02/21/21 (unknown) (no (unknown) (unknown) metoprolol (units (unk nown) date) succinate 50 mg unknown) Tablet Extended Release 24 Hr (unknown) (no (unknown) (unknown) mg tablet (units (unkn own) date) ([place]) unknown) (unknown) (no (unknown) (unknown) morning. They (units ( unknown) date) had yet to pick unknown) up his pain medication. He was sitting on the (unknown) (no (unknown) (unknown) multivitamin (units (u nknown) date) (Multiple unknown) Vitamins 1 tab PO QDAY ##0 04/29/17 04/30/18 (unknown) (no (unknown) (unknown) multivitamin (units (u nknown) date) [Multiple unknown) Vitamins] 1 EACH tablet (unknown) (no (unknown) (unknown) nitroglycerin (units ( unknown) date) 0.3 mg sublingual unknown) 0.3 mg sublingual Q5-15M PRN chest 10/01/19 (unknown) (no (unknown) (unknown) nitroglycerin (units ( unknown) date) 0.3 mg tablet, unknown) sublingual (unknown) (no (unknown) (unknown) occasional (units (unk nown) date) breathing unknown) problems specifically at night. What he describes does (unknown) (no (unknown) (unknown) omeprazole 20 mg (units (unknown) date) Tablet,Delayed unknown) Release (Dr/Ec) (unknown) (no (unknown) (unknown) omeprazole 20 mg (units (unknown) date) tablet,delayed 20 unknown) mg PO BID 04/30/18 02/21/21 (unknown) (no (unknown) (unknown) opacity at the (units (unknown) date) unknown) (unknown) (no (unknown) (unknown) outside emergency (units (unknown) date) department where unknown) he had multiple radiologic studies performed. (unknown) (no (unknown) (unknown) pain medication (units (unknown) date) (which he now unknown) has) and he got up from his chair. He stated that (unknown) (no (unknown) (unknown) pneumothorax. He (units (unknown) date) does have unknown) tenderness over the areas where we know that he has (unknown) (no (unknown) (unknown) posterior 6th 7th (units (unknown) date) and 8th rib unknown) fractures and a right T6 and T7 transverse process (unknown) (no (unknown) (unknown) potassium (units (unkn own) date) chloride 8 mEq 8 unknown) meq PO DAILY #10 caps 10/01/19 (unknown) (no (unknown) (unknown) potassium (units (unkn own) date) chloride 8 mEq unknown) capsule, extended release (unknown) (no (unknown) (unknown) potentially (units (un known) date) needing another unknown) sleep study. We had a long discussion with him and (unknown) (no (unknown) (unknown) precautions. He (units (unknown) date) expressed unknown) understanding and agreement. (unknown) (no (unknown) (unknown) release (units (unkno wn) date) unknown) (unknown) (no (unknown) (unknown) right lower (units (un known) date) lung.? Diffuse unknown) interstitial thickening in the mid to lower lung (unknown) (no (unknown) (unknown) right shoulder.? (units (unknown) date) Severe leftward unknown) thoracolumbar scoliosis.? Soft tissues appear (unknown) (no (unknown) (unknown) shortness of (units (u nknown) date) breath. By the unknown) time I evaluated him his symptoms had resolved. He (unknown) (no (unknown) (unknown) sound somewhat (units (unknown) date) like sleep apnea. unknown) He has had a sleep study but that was many (unknown) (no (unknown) (unknown) stated that he (units (unknown) date) was having quite unknown) a bit discomfort which was causing him to have (unknown) (no (unknown) (unknown) sulfite (units (unkno wn) date) [SULFITE] Allergy unknown) Severe from foods Verified 09/13/22 17:27 (unknown) (no (unknown) (unknown) tablet pain #25 (units (unknown) date) tabs unknown) (unknown) (no (unknown) (unknown) tablet) (units (unkno wn) date) unknown) (unknown) (no (unknown) (unknown) tablet,extended (units (unknown) date) release 24 hr unknown) (unknown) (no (unknown) (unknown) the radiologic (units (unknown) date) reports. It shows unknown) that he has minimally displaced right (unknown) (no (unknown) (unknown) trace right (units (un known) date) pleural effusion. unknown) He was kept in the emergency department for an (unknown) (no (unknown) (unknown) unremarkable.? (units (unknown) date) unknown) (unknown) (no (unknown) (unknown) until response; (units (unknown) date) do not exceed 3 unknown) doses per episode, take for chest pain and or (unknown) (no (unknown) (unknown) warfarin 3 mg (units ( unknown) date) tablet (Coumadin) unknown) 5 mg PO SEEINSTR 04/30/18 02/21/21 (unknown) (no (unknown) (unknown) warfarin (units (unkno wn) date) [Coumadin] 3 MG unknown) tablet (unknown) (no (unknown) (unknown) years ago. I (units (u nknown) date) advised that he unknown) talk with his primary doctor regarding this about (unknown) (no (unknown) (unknown) zones.? No (units (unk nown) date) unknown) Social History date description facility 2022-09-12 00:00 Unknown if ever smoked All 2022-09-13 00:00 Never smoked tobacco ([facility] Vital Signs date measurement value units 2022-09-13 00:00 BMI 28.3 kg/m2 2022-09-13 00:00 BP_diastolic 63 mmHg 2022-09-13 00:00 BP_systolic 108 mmHg 2022-09-13 00:00 heart_rate 80 /min 2022-09-13 00:00 height_metric 162.56 cm 2022-09-13 00:00 height_standard 64 in 2022-09-13 00:00 o2_saturation 98 % 2022-09-13 00:00 respiration_rate 20 /min 2022-09-13 00:00 temperature_metric 36.22 C 2022-09-13 00:00 temperature_standard 97.2 F 2022-09-13 00:00 weight_metric 74.84 kg 2022-09-13 00:00 weight_standard 164.99 lb
--- NOTE | 2022-09-19 15:30 | ED Physician Documentation ---
PD HPI DYSPNEA - Stated complaint Stated Complaint: SOA/LEG CRAMPS - Chief complaint Chief Complaint: Resp - History obtained from History obtained from: Patient, Family - History of Present Illness Timing - details: Gradual onset Inciting event(s): Exercise Improved by: O2, Rest Worsened by: Exertion Associated symptoms: Bilateral edema. No: Fever, Cough, Hemoptysis, Wheezing, Chest pain / discomfort, Palpitations, Diaphoresis, Unilateral edema, Anxiety Similar symptoms before: Diagnosis Recently seen: Clinic, Emergency Dept, Admitted - Additional information Additional information: This is an 87 yo M w/ a pmh of atrial fibrillation on coumadin and a recent admission to monitor a very small ptx after a fall who presents w/ bilateral leg swelling. He has also had some increase in chronic shortness of breath recently, particularly w/ activity. Family also notes that he "stops breathing" when he sleeps. He had a sleep study years ago but not recently. He does have oxygen to use at home, but mostly only uses at night time from around 11pm-4am. Today, when he woke up, he noticed both his feet were substantially more And then baseline. His family states that they were like around because they were so swollen it was difficult to get his shoes on. He had some mild discomfort with it but no acute calf pain and no erythema. He denies any injuries to the feet. He does state that he is generally compliant with his Lasix though occasionally withholds the nighttime dose if he feels that he is too dry. Since he had the injury and fall recently, he has not been going upstairs where his scale is whereas before he would weigh himself essentially every day. He denies any change to his diet though states he may have eaten more salt than normal. He has not had any fever, no chest pain, no dizziness or weakness, no increasing cough or sputum production, no sore throat or other URI symptoms, no abdominal pain, no nausea, vomiting, diarrhea, dysuria or other urinary symptoms. He has not noted any other areas of swelling. He routinely sleeps propped upright and cannot say if it would be more difficult to lay flat as he has not laid flat for many years. He really has no shortness of breath at rest however is primarily with activity. He was seen in the clinic today and it sounds as though there was a concern that the x-ray may have shown a worsening pneumothorax as he was sent over to the ER Review of Systems Constitutional: reports: Reviewed and negative Eyes: reports: Reviewed and negative Ears: reports: Reviewed and negative Nose: reports: Reviewed and negative Throat: reports: Reviewed and negative Cardiac: reports: Reviewed and negative Respiratory: reports: Dyspnea, Cough. denies: Hemoptysis, Wheezing GI: reports: Reviewed and negative : reports: Reviewed and negative Skin: reports: Reviewed and negative Musculoskeletal: reports: Extremity swelling. denies: Extremity pain, Joint swelling Neurologic: reports: Reviewed and negative Psychiatric: reports: Reviewed and negative Endocrine: reports: Reviewed and negative PD PAST MEDICAL HISTORY - Past Medical History Cardiovascular: High cholesterol, Atrial fibrillation Respiratory: Pneumonia, Shortness of breath Endocrine/Autoimmune: None GI: GERD : None Psych: None Musculoskeletal: None Derm: None - Past Surgical History Past Surgical History: Yes General: Other Cardiovascular: Pacemaker HEENT: Cataracts - Present Medications Home Medications: Ambulatory Orders Medication Instructions Recorded Confirmed Fish Oil/Dha/Epa [Fish Oil 1,200 1 each PO BID 10/12/13 09/13/22 mg Fish Oil] Glucosamine/MSM/Chondroit Sulf 1 each PO DAILY 10/12/13 09/13/22 [Wkqrulkhwzk-Wvpasldrr-XGM Tab] Multivitamin [Multivitamins] 1 each PO DAILY 10/12/13 09/13/22 Omeprazole [Prilosec] 20 mg PO QPM 10/12/13 09/13/22 Warfarin Sodium [Coumadin] 3.5 - 7.5 mg PO DAILY 10/12/13 09/13/22 Acetaminophen [Tylenol] 650 mg PO Q4HR PRN tab 09/13/22 Calcium Carbonate [Tums (Calcium 1,000 mg PO BID tab 09/13/22 Carbonate 500mg)] Cyanocobalamin (Vitamin B-12) 1,000 mcg PO DAILY 09/13/22 09/13/22 [Vitamin B-12] Furosemide [Lasix] 20 mg PO QPM 09/13/22 09/13/22 Furosemide [Lasix] 40 mg PO DAILY 09/13/22 09/13/22 Lidocaine Patch 5% [Lidoderm Patch] 1 each TOP DAILY #14 patch 09/13/22 Metoprolol Tartrate [Lopressor] 50 mg PO BID 09/13/22 09/13/22 oxyCODONE [Roxicodone] 5 mg PO Q4HR PRN tab 09/13/22 - Allergies Allergies/Adverse Reactions: Allergies Allergy/AdvReac Type Severity Reaction Status Date / Time Penicillins Allergy Rash Verified 09/19/22 14:36 - Social History Does the pt smoke?: No Smoking Status: Never smoker Does the pt drink ETOH?: Yes Does the pt have substance abuse?: No - Immunizations Immunizations are current?: Yes - POLST Patient has POLST: No PD ED PE NORMAL - Vitals Vital signs reviewed: Yes - General General: Alert and oriented X 3, No acute distress, Well developed/nourished - HEENT HEENT: Atraumatic, Pharynx benign - Neck Neck: Supple, no meningeal sign, No JVD - Cardiac Cardiac: No murmur, No gallop, Strong equal pulses, Other (Irregularly irregular) - Respiratory Respiratory: No respiratory distress, Clear bilaterally, Other (100% on room air) - Abdomen Abdomen: Normal bowel sounds, Soft, Non tender, Non distended - Derm Derm: Normal color, Warm and dry - Extremities Extremities: No deformity, No tenderness to palpate, No calf tenderness / cord, Other (2+ pitting edema left ankle and foot, 1+ edema right ankle, no other extremity edema) - Neuro Neuro: Alert and oriented X 3 Eye Opening: Spontaneous Motor: Obeys Commands Verbal: Oriented GCS Score: 15 - Psych Psych: Normal mood, Normal affect Results - Vitals Vitals: Vital Signs - 24 hr 09/19/22 09/19/22 09/19/22 14:30 15:39 16:47 Temperature 36.4 C L Heart Rate 80 86 80 Respiratory 16 16 24 Rate Blood Pressure 112/56 L 121/98 H 123/76 O2 Saturation 100 100 98 Oxygen O2 Source Room air - EKG (time done) No standard instances Rate: Rate (enter#) (83) Rhythm: Atrial fibrillation Ischemia: Normal ST segments Computer interpretation: Agree with computer - Labs Labs: Laboratory Tests 09/19/22 09/19/22 09/19/22 15:30 15:30 15:30 WBC 8.3 RBC 4.26 L Hgb 12.9 L Hct 40.1 L MCV 94.1 H MCH 30.3 MCHC 32.2 RDW 13.6 Plt Count 220 MPV 10.7 Neut # (Auto) 5.7 Lymph # (Auto) 1.3 L Dyer # (Auto) 1.0 Eos # (Auto) 0.2 Baso # (Auto) 0.1 Absolute Nucleated RBC 0.00 Nucleated RBC % 0.0 PT INR Sodium 133 L Potassium 3.9 Chloride 93 L Carbon Dioxide 28 Anion Gap 12.0 BUN 25 H Creatinine 1.2 Estimated GFR (MDRD) 57 L Glucose 100 Calcium 9.5 Troponin I High Sens B-Natriuretic Peptide 364 H 09/19/22 09/19/22 15:30 16:04 WBC RBC Hgb Hct MCV MCH MCHC RDW Plt Count MPV Neut # (Auto) Lymph # (Auto) Dyer # (Auto) Eos # (Auto) Baso # (Auto) Absolute Nucleated RBC Nucleated RBC % PT 24.2 H INR 2.3 H Sodium Potassium Chloride Carbon Dioxide Anion Gap BUN Creatinine Estimated GFR (MDRD) Glucose Calcium Troponin I High Sens 10.5 B-Natriuretic Peptide - Rads (name of study) No standard instances Radiology: Final report received PD Medical Decision Making - ED course Complexity details: reviewed old records, reviewed results, re-evaluated patient, considered differential, d/w patient, d/w family ED course: This is an 87-year-old male with a past medical history of atrial fibrillation as well as recent fall as noted in HPI who presents with increasing lower extremity edema bilaterally as well as increasing shortness of breath with exertion. The patient is well-appearing on physical exam, in no respiratory distress and saturating between 98 and 100% on room air. His lung sounds are largely clear though he does not take deep breaths. He has 2+ pitting edema in the left ankle and 1+ in the right, it sounds as though it substantially better than it was earlier today. Differentials considered included acute CHF exacerbation, pneumonia, pneumothorax, ACS, flu or other viral illness. Labs were obtained which are largely stable compared to prior, no leukocytosis, stable renal function stable troponin. His BNP is slightly elevated similar to prior. EKG shows known atrial fibrillation and patient is anticoagulated appropriately on Coumadin. His chest x-ray shows atelectasis bilaterally, No pneumothorax, no clear pneumonia and have low suspicion for early pneumonia as patient is afebrile, Saturating well on room air and has no leukocytosis. He was however encouraged to work on deep breathing throughout the day, he does have an incentive spirometer at home which I recommended he use 10 times every hour while awake during the day. I also suspect that as his extremity edema has dissipated throughout the day that it likely was transient fluid overload, possibly related to diet or missed doses of Lasix. I recommended that he increase his Lasix to 40 mg twice a day for the next few days until he is back down to his baseline weight/edema and he states a family member will bring down the scale so that he can use it daily. He should keep his legs elevated and adhere to a low-salt diet. At this time, I do not feel he requires hospitalization but did discussed return precautions in detail with the patient. He will continue follow-up closely with his primary doctor for possible additional adjustments to his Lasix if needed, and return precautions were discussed in detail with the patient and his family member. I also encouraged them to discuss possible sleep study for suspected sleep apnea with the PCP. For now he will continue to wear his supplemental oxygen at night and prn. Departure - Departure Disposition: 01 Home, Self Care Clinical Impression: Dyspnea Qualifiers: Dyspnea type: shortness of breath Qualified Code(s): R06.02 - Shortness of breath Condition: Good Instructions: ED Dyspnea Shortness of Breath Comments: You presented due to increasing lower extremity swelling as well as shortness of breath earlier today. Your legs have now improved substantially after elevation. Your chest x-ray today today is relatively stable, I do not see substantial increase in fluid in your lungs or any acute findings. Your labs as well are stable. I would recommend that you adhere to a low-salt diet and can increase your Lasix to 40 mg twice a day for the next 3 to 5 days based on your swelling, weight and symptoms. Please weigh yourself every day or every other day in notify your primary doctor if you or up or down greater than 3 to 5 pounds.Return to the ER if you have new or worsening symptoms. Discharge Date/Time: 09/19/22 16:47
[2022-09-19 15:40] LABS: BASOPHILS # (AUTO) 0.1 10^3/uL (0.0-0.1); BASOPHILS % (AUTO) 0.8 %; EOSINOPHILS # (AUTO) 0.2 10^3/uL (0.0-0.7); EOSINOPHILS % (AUTO) 1.8 %; HCT - HEMATOCRIT 40.1 % (42.0-52.0); HGB - HEMOGLOBIN 12.9 g/dL (14.0-18.0); LYMPHOCYTES # (AUTO) 1.3 10^3/uL (1.5-3.5); LYMPHOCYTES % (AUTO) 15.1 %; MEAN CORPUSCULAR HEMOGLOBIN 30.3 pg (27.0-31.0); MEAN CORPUSCULAR HGB CONC 32.2 g/dL (32.0-36.0); MEAN CORPUSCULAR VOLUME 94.1 fL (80.0-94.0); MEAN PLATELET VOLUME 10.7 fL (7.4-11.4); MONOCYTES % (AUTO) 12.5 %; NEUTROPHILS # (AUTO) 5.7 10^3/uL (1.5-6.6); NEUTROPHILS % (AUTO) 69.4 %; PLT - PLATELET COUNT 220 10^3/uL (130-450); RED BLOOD COUNT 4.26 10^6/uL (4.70-6.10); RED CELL DISTRIBUTION WIDTH 13.6 % (12.0-15.0); WHITE BLOOD COUNT 8.3 x10^3/uL (4.8-10.8)
[2022-09-19 15:50] LABS: CALCIUM 9.5 mg/dL (8.5-10.3); CREATININE 1.2 mg/dL (0.6-1.2); POTASSIUM 3.9 mmol/L (3.5-5.0)
[2022-09-19 16:17] LABS: INR 2.3 (0.8-1.2); PT - PROTHROMBIN TIME 24.2 secs (9.9-12.6)
--- NOTE | 2022-09-19 16:18 | XRAY Report ---
PROCEDURE: Chest 1 View X-Ray INDICATIONS: SOA. Recent fall. TECHNIQUE: One view of the chest was acquired. COMPARISON: Chest radiograph 09/13/2022 FINDINGS: Surgical changes and devices: Left chest dual-lead pacemaker. Lungs and pleura: Lung volumes are low. Minimal bibasilar pulmonary opacities are present, nonspecif ic. No large pleural effusion. No pneumothorax. Mediastinum: Cardiac silhouette is at the upper limits of normal in size. Mediastinal and hilar cont ours are similar to before. Bones and chest wall: No suspicious bony lesions. Overlying soft tissues appear unremarkable. IMPRESSION: Low lung volumes with minimal nonspecific bibasilar opacities, possible atelectasis but aspiration, p neumonia, scarring are difficult to exclude. Reviewed by: Henry Hogan MD on 09/19/2022 4:17 PM PST Approved by: Henry Hogan MD on 09/19/2022 4:17 PM PST Station ID: [id number]
[2022-09-19 16:48] VITALS: BP 123/76
== END 2022-09-19 16:47 | disposition home or self-care (01) ==
LOC: ED 14:18
DX: R06.02 Shortness of breath (principal); I48.91 Unspecified atrial fibrillation; Z79.01 Long term (current) use of anticoagulants; Z99.81 Dependence on supplemental oxygen
CPT/HCPCS: 36415; 80048; 83880; 84484; 85025; 85610; 93005; 99283; 99284

== ENCOUNTER 2022-09-25 17:44 | Emergency (ER) | payer OTHER ==
[2022-09-25] MEDS ORDERED: SODIUM CHLORIDE 0.9% 500 ML IV STA (18:20)
[2022-09-25 18:26] LABS: BASOPHILS # (AUTO) 0.1 10^3/uL (0.0-0.1); BASOPHILS % (AUTO) 1.3 %; EOSINOPHILS # (AUTO) 0.1 10^3/uL (0.0-0.7); LYMPHOCYTES # (AUTO) 1.1 10^3/uL (1.5-3.5); LYMPHOCYTES % (AUTO) 14.6 %; MEAN CORPUSCULAR HEMOGLOBIN 30.2 pg (27.0-31.0); MEAN CORPUSCULAR HGB CONC 32.5 g/dL (32.0-36.0); MEAN PLATELET VOLUME 10.5 fL (7.4-11.4); MONOCYTES % (AUTO) 12.9 %; NEUTROPHILS # (AUTO) 5.3 10^3/uL (1.5-6.6); NEUTROPHILS % (AUTO) 69.9 %; PLT - PLATELET COUNT 297 10^3/uL (130-450); RED CELL DISTRIBUTION WIDTH 13.8 % (12.0-15.0); WHITE BLOOD COUNT 7.7 x10^3/uL (4.8-10.8)
--- OUTSIDE RECORDS SUMMARY | 2022-09-25 18:31 | EXTERNAL MEDICAL SUMMARY RPT | Continuity of Care Document ---
:1935 Author Organization [facility] Address [address] [place] [address] Phone Care Team Providers Name Role Phone Lauri Vasquez Unavailable Unavailable Ana, Provider Unavailable Unavailable Allergies and Intolerances date description facility type (no date) [facility] sulfite [facility] (unknown) Encounters No information. Functional Status No [...] description facility 2022-09-13 00:00 Shortness of breath [facility] 2022-09-13 00:00 Fracture of rib [facility] 2022-09-23 00:00 Sleep apnea [facility] 2022-09-23 00:00 Pulmonary arterial hypertension [facility] 2022-09-23 00:00 Congestive heart failure [facility] Procedures date description facility 2022-09-23 00:00 Computed tomography of head or brain wi [facility] contrast 2022-09-23 00:00 X-ray of chest, single view [facility] 2022-09-13 00:00 X-ray of chest, two views [facility] 2022-09-23 00:00 Computed tomography angiography of ches t with [facility] contrast for pulmonary embolus Results/Labs test date author facility value unit interpret ation Result panel 1 (unknown) (no date) ([facility]) Result panel 2 (unknown) (no date) (unknown[facility]) Result panel 3 (unknown) (no date) (unknown[facility]) Result panel 4 (unknown) (no date) (unknown[facility]) Result panel 5 (unknown) (no date) (unknown[facility]) Result panel 6 (unknown) (no date) (unknown[facility]) Result panel 7 (unknown) (no date) (unknown[facility]) Result panel 8 (unknown) (no date) (unknown[facility]) Result panel 9 (unknown) (no date) (unknown[facility]) Result panel 10 (unknown) (no date) (unknown[facility]) Result panel 11 (unknown) (no date) (unknown[facility]) Result panel 12 (unknown) (no date) (unknown[facility]) Result panel 13 (unknown) (no date) (unknown[facility]) Result panel 14 (unknown) (no date) (unknown[facility]) Result panel 15 (unknown) (no date) (unknown[facility]) Result panel 16 (unknown) (no date) (unknown[facility]) Result panel 17 (unknown) (no date) (unknown[facility]) Result panel 18 (unknown) (no date) (unknown[facility]) Result panel 19 (unknown) (no date) (unknown[facility]) Result panel 20 (unknown) (no date) (unknown[facility]) Result panel 21 (unknown) (no date) (unknown[facility]) Result panel 22 (unknown) (no date) (unknown[facility]) Result panel 23 (unknown) (no date) (unknown[facility]) Result panel 24 (unknown) (no date) (unknown[facility]) Result panel 25 (unknown) (no date) (unknown[facility]) Result panel 26 (unknown) (no date) (unknown[facility]) Result panel 27 (unknown) (no date) (unknown[facility]) Result panel 28 (unknown) (no date) (unknown[facility]) Result panel 29 (unknown) (no date) (unknown[facility]) Result panel 30 (unknown) (no date) (unknown[facility]) Result panel 31 (unknown) (no date) (unknown[facility]) Result panel 32 (unknown) (no date) (unknown[facility]) Result panel 33 (unknown) (no date) (unknown) [facility]) Result panel 34 (unknown) (no date) (unknown[facility]) Result panel 35 (unknown) (no date) (unknown[facility]) Result panel 36 (unknown) (no date) (unknown) [facility]) Result panel 37 (unknown) (no date) (unknown[facility]) Result panel 38 (unknown) (no date) (unknown) [facility]) Result panel 39 (unknown) (no date) (unknown) [facility]) Result panel 40 (unknown) (no date) (unknown) [facility]) Result panel 41 (unknown) (no date) (unknown[facility]) Result panel 42 (unknown) (no date) (unknown[facility]) Result panel 43 (unknown) (no date) (unknown[facility]) Result panel 44 (unknown) (no date) (unknown[facility]) Result panel 45 (unknown) (no date) (unknown[facility]) Result panel 46 (unknown) (no date) (unknown) [facility]) Result panel 47 (unknown) (no date) (unknown) [facility]) Result panel 48 (unknown) (no date) (unknown[facility]) Result panel 49 (unknown) (no date) (unknown) [facility]) Result panel 50 (unknown) (no date) (unknown[facility]) Result panel 51 (unknown) (no date) (unknown) [facility]) Result panel 52 (unknown) (no date) (unknown[facility]) Result panel 53 (unknown) (no date) (unknown) [facility]) Result panel 54 (unknown) (no date) (unknown[facility]) Result panel 55 (unknown) (no date) (unknown) [facility]) Result panel 56 (unknown) (no date) (unknown) [facility]) Result panel 57 (unknown) (no date) (unknown) [facility]) Result panel 58 (unknown) (no date) (unknown) [facility]) Result panel 59 (unknown) (no date) (unknown) [facility]) Result panel 60 (unknown) (no date) (unknown) [facility]) Result panel 61 (unknown) (no date) (unknown) [facility]) Result panel 62 (unknown) (no date) (unknown) [facility]) Result panel 63 (unknown) (no date) (unknown) [facility]) Result panel 64 (unknown) (no date) (unknown) [facility]) Result panel 65 (unknown) (no date) (unknown) [facility]) Result panel 66 (unknown) (no date) (unknown) [facility]) Result panel 67 (unknown) (no date) (unknown) [facility]) Result panel 68 (unknown) (no date) (unknown) [facility]) Result panel 69 (unknown) (no date) (unknown) [facility]) Result panel 70 (unknown) (no date) (unknown) [facility]) Result panel 71 (unknown) (no date) (unknown) [facility]) Result panel 72 (unknown) (no date) (unknown) [facility]) Result panel 73 (unknown) (no date) (unknown) [facility]) Result panel 74 (unknown) (no date) (unknown) [facility]) Result panel 75 (unknown) (no date) (unknown) [facility]) Result panel 76 (unknown) (no date) (unknown) [facility]) Result panel 77 (unknown) (no date) (unknown) [facility]) Result panel 78 (unknown) (no date) (unknown) [facility]) Result panel 79 (unknown) (no date) (unknown) [facility]) Result panel 80 (unknown) (no date) (unknown) [facility]) Result panel 81 (unknown) (no date) (unknown) [facility]) Result panel 82 (unknown) (no date) (unknown) [facility]) Result panel 83 (unknown) (no date) (unknown) [facility]) Result panel 84 (unknown) (no date) (unknown) [facility]) Result panel 85 (unknown) (no date) (unknown) [facility]) Result panel 86 (unknown) (no date) (unknown) [place] ([facility]) Result panel 87 (unknown) (no date) (unknown) [place] ([facility]) Result panel 88 (unknown) (no (unknown) (unknown) (no value) (units (unk nown) date) unknown) (unknown) (no (unknown) (unknown) [id number] (units (unkn own) date) unknown) (unknown) (no (unknown) (unknown) 09/13/22 (units (unkno wn) date) unknown) (unknown) (no (unknown) (unknown) 1. Cardiomegaly (units (unknown) date) and diffuse unknown) interstitial prominence suggesting CHF. (unknown) (no (unknown) (unknown) [address] [place] [address] (units (unknown) date) unknown) (unknown) (no (unknown) (unknown) 2. Horizontal (units ( unknown) date) right base unknown) opacity may be atelectasis, effusion, or edema. (unknown) (no (unknown) (unknown) 3. No evidence (units (unknown) date) of pneumothorax. unknown) (unknown) (no (unknown) (unknown) 4. No visible (units ( unknown) date) displaced rib unknown) fractures. (unknown) (no (unknown) (unknown) Accession (units (unkn own) date) Number: unknown) [id number] (unknown) (no (unknown) (unknown) Age/Sex: 87 / M (units (unknown) date) Date of Service: unknown) (unknown) (no (unknown) (unknown) [place] (units ( unknown) date) [id number] unknown) (unknown) (no (unknown) (unknown) Approved by: (units (u nknown) date) devonte Combs M.D. on 09/13/2022 at 17:43 (unknown) (no (unknown) (unknown) Bones and chest (units (unknown) date) wall: No unknown) suspicious bony abnormalities. Degenerative changes (unknown) (no (unknown) (unknown) COMPARISON: (units (un known) date) [facility], unknown) CR, XR CHEST 1V, 02/05/2021, 3:04. (unknown) (no (unknown) (unknown) : 1935 (units (unknown) date) Acct:[id number] unknown) (unknown) (no (unknown) (unknown) Dictated by: (units (u nknown) date) devonte Combs M.D. on 09/13/2022 at 17:40 (unknown) (no (unknown) (unknown) FINDINGS: (units (unkn own) date) unknown) (unknown) (no (unknown) (unknown) IMPRESSION: (units (un known) date) unknown) (unknown) (no (unknown) (unknown) INDICATIONS: (units (u nknown) date) fall last unknown) night,known rib fractures,pneumo, increase SOB (unknown) (no (unknown) (unknown) [facility] (units (unknown) date) unknown) (unknown) (no (unknown) [...] (unkno wn) date) White,Dallin A unknown) MR#: M (unknown) (no (unknown) [...] (units (unkn own) date) unknown) Result panel 89 (unknown) (no (unknown) (unknown) (no value) (units (unk nown) date) unknown) (unknown) (no (unknown) (unknown) (Efudex) lesions (units (unknown) date) ##0 unknown) (unknown) (no (unknown) (unknown) (Glucosamine (units (u nknown) date) Sulfate 2 unknown) (unknown) (no (unknown) (unknown) 0.3 mg SL Q5-15M (units (unknown) date) PRN (Reason: unknown) chest pain) Qty: 25 0RF (unknown) (no (unknown) (unknown) [id number] (units (unkno wn) date) unknown) (unknown) (no [...] (unknown) (unknown) Blood Pressure (units (unknown) date) unknown) (unknown) (no (unknown) (unknown) CVA (cerebral [...] (unknown) (unknown) : 1935 (units (unknown) date) Acct:[id number] unknown) (unknown) (no (unknown) (unknown) Date of [...] (units ( unknown) date) Fito Pagan unknown) Wendi.O. (unknown) (no (unknown) (unknown) Easy (units (unkno [...] date) Signs: unknown) (unknown) (no (unknown) (unknown) [facility] (units (unknown) date) [address] unknown) [place] [address] (unknown) (no (unknown) (unknown) KCL-Chondroitin) (units (unknown) [...] (unknown) (unknown) hydrocodone-acet (units (unknown) date) aminophen [[place]] unknown) 5-325 mg tablet (unknown) (no (unknown) [...] (unknown) mg tablet (units (unkn own) date) ([place]) unknown) (unknown) (no (unknown) (unknown) multivitamin (units [...] [Coumadin] 3 MG unknown) tablet Result panel 90 (unknown) (no (unknown) (unknown) (no value) (units (unk nown) date) unknown) (unknown) (no (unknown) (unknown) (Efudex) lesions (units (unknown) date) ##0 unknown) (unknown) (no (unknown) (unknown) (Glucosamine (units (u nknown) date) Sulfate 2 unknown) (unknown) (no (unknown) (unknown) 0.3 mg SL Q5-15M (units (unknown) date) PRN (Reason: unknown) chest pain) Qty: 25 0RF (unknown) (no (unknown) (unknown) [id number] (units (unkno wn) date) unknown) (unknown) (no [...] (unknown) (unknown) : 1935 (units (unknown) date) Acct:[id number] unknown) (unknown) (no (unknown) (unknown) Date of [...] Rib Fracture unknown) (unknown) (no (unknown) (unknown) [facility] (units (unknown) date) [address] unknown) [place] [address] (unknown) (no (unknown) (unknown) KCL-Chondroitin) (units (unknown) [...] (unknown) (unknown) hydrocodone-acet (units (unknown) date) aminophen [[place]] unknown) 5-325 mg tablet (unknown) (no (unknown) [...] (unknown) mg tablet (units (unkn own) date) ([place]) unknown) (unknown) (no (unknown) (unknown) multivitamin (units [...] [Coumadin] 3 MG unknown) tablet Result panel 91 (unknown) (no (unknown) (unknown) (no value) (units [...] Qty: 25 0RF (unknown) (no (unknown) (unknown) [id number] (units (unkno wn) date) unknown) (unknown) (no [...] Accession (units (unkn own) date) Number: unknown) [id number] ?? (unknown) (no (unknown) (unknown) Acct:[id number] (units (unknown) date) unknown) (unknown) (no (unknown) [...] (unknown) [place]NA [place] (units ( unknown) date) [address] unknown) (unknown) (no (unknown) (unknown) Approved by: (units (u nknown) date) devonte Combs M.D. on 09/13/2022 at 17:43? (unknown) (no (unknown) [...] (unknown) (unknown) COMPARISON:? (units (u nknown) date) [facility], unknown) CR, XR CHEST 1V, 02/05/2021, 3:04. [...] (unknown) (unknown) : 1935 (units (unknown) date) Acct:[id number] unknown) (unknown) (no (unknown) (unknown) : 1935 [...] Rib Fracture unknown) (unknown) (no (unknown) (unknown) [facility] (units (unknown) date) [address] unknown) [place] [address] (unknown) (no (unknown) (unknown) [facility] (units (unknown) date) unknown) (unknown) (no (unknown) [...] date) unknown) (unknown) (no (unknown) (unknown) MR#: [id number] (units (unknown) date) unknown) (unknown) (no (unknown) [...] (unknown) Patient: (units (unkno wn) date) Jorge Oliveirainald A unknown) MR#: [id number] (unknown) (no (unknown) (unknown) Patient: (units (unkno wn) date) WhiteDallin A unknown) (unknown) (no (unknown) (unknown) Penicillins [...] (unknown) (unknown) hydrocodone-acet (units (unknown) date) aminophen [[place]] unknown) 5-325 mg tablet (unknown) (no (unknown) [...] (unknown) mg tablet (units (unkn own) date) ([place]) unknown) (unknown) (no (unknown) (unknown) morning. They [...] zones.? No (units (unk nown) date) unknown) Result panel 92 (unknown) (no date) (unknown) (unknown) (no value) (units (un known) unknown) (unknown) (no date) (unknown) (unknown) [id number] (units (unk nown) unknown) (unknown) (no date) (unknown) (unknown) 09/23/22 (units (unkn own) unknown) (unknown) (no date) (unknown) (unknown) [id number]units ([address] nown) [address] unknown) (unknown) (no date) (unknown) (unknown) Accession (units (unk nown) Number: unknown) [id number] (unknown) (no date) (unknown) (unknown) Age/Sex: 87 / (units (unknown) M Date of unknown) Service: (unknown) (no date) (unknown) (unknown) [place] (units (unknown) [address] unknown) (unknown) (no date) (unknown) (unknown) Approved by: (units ( unknown) nasra Chávez) Emeterio on 09/23/2022 at 19:28 (unknown) (no date) (unknown) (unknown) Bones and (units (unk nown) chest wall: No unknown) suspicious bony lesions. Overlying soft tissues (unknown) (no date) (unknown) (unknown) [facility], [facility], XR CHEST 2V, 09/13/2022, 17:40. (unknown) (no date) (unknown) (unknown) : (units (unkn own) 1935 unknown) Acct:[id number] (unknown) (no date) (unknown) (unknown) Dictated by: (units ( unknown) nasra Chávez) Emeterio on 09/23/2022 at 19:27 (unknown) (no date) (unknown) (unknown) FINDINGS: (units (unk nown) unknown) (unknown) (no date) (unknown) (unknown) IMPRESSION: No (units (unknown) acute process. unknown) (unknown) (no date) (unknown) (unknown) INDICATIONS: (units ( unknown) Shortness of unknown) breath (unknown) (no date) (unknown) (unknown) [facility] (unknown) (no date) (unknown) (unknown) Loc: ED (units (unkn own) unknown) (unknown) (no date) (unknown) (unknown) Lungs and (units (unk nown) pleura: Lungs unknown) are clear. No pleural effusions or pneumothorax. (unknown) (no date) (unknown) (unknown) Mediastinum: (units ( unknown) Mediastinal unknown) contours appear normal. Heart size is normal. (unknown) (no date) (unknown) (unknown) Ordering (units (unkn own) Provider: unknown) Fito Pagan D.O. (unknown) (no date) (unknown) (unknown) PROCEDURE: XR (units (unknown) CHEST 1V unknown) (unknown) (no date) (unknown) (unknown) Patient: (units (unkn own) White,Dallin unknown) A MR#: M (unknown) (no date) (unknown) (unknown) Procedure: XR (units (unknown) chest 1V unknown) (unknown) (no date) (unknown) (unknown) Signed (units (unkn own) unknown) (unknown) (no date) (unknown) (unknown) Surgical (units (unkn own) changes and unknown) devices: Left-sided pacer (unknown) (no date) (unknown) (unknown) TECHNIQUE: One (units (unknown) view of the unknown) chest was acquired. (unknown) (no date) (unknown) (unknown) XRay Report (units (u nknown) unknown) (unknown) (no date) (unknown) (unknown) appear (units (unkn own) unknown) (unknown) (no date) (unknown) (unknown) unremarkable. (units (unknown) unknown) Result panel 93 (unknown) (no date) (unknown) (unknown) 1.1 % (unkn own) (unknown) (no date) (unknown) (unknown) 1.9 % (unkn own) (unknown) (no date) (unknown) (unknown) 10.5 % (unkn own) (unknown) (no date) (unknown) (unknown) 100 /ul (unkn own) (unknown) (no date) (unknown) (unknown) 100 /ul (unkn own) (unknown) (no date) (unknown) (unknown) 12.5 g/dl (unkn own) (unknown) (no date) (unknown) (unknown) 13.3 % (unkn own) (unknown) (no date) (unknown) (unknown) 13.9 % (unkn own) (unknown) (no date) (unknown) (unknown) 249 x10 3/ul (unkn own) (unknown) (no date) (unknown) (unknown) 30.9 pg (unkn own) (unknown) (no date) (unknown) (unknown) 33.9 % (unkn own) (unknown) (no date) (unknown) (unknown) 36.7 % (unkn own) (unknown) (no date) (unknown) (unknown) 4.03 x10 6/ul (unkn own) (unknown) (no date) (unknown) (unknown) 5100 /ul (unkn own) (unknown) (no date) (unknown) (unknown) 6.9 x10 3/ul (unkn own) (unknown) (no date) (unknown) (unknown) 700 /ul (unkn own) (unknown) (no date) (unknown) (unknown) 73.2 % (unkn own) (unknown) (no date) (unknown) (unknown) 900 /ul (unkn own) (unknown) (no date) (unknown) (unknown) 91.1 fl (unkn own) Result panel 94 (unknown) (no (unknown) (unknown) (no value) (units (unk nown) date) unknown) (unknown) (no (unknown) (unknown) (Efudex) lesions (units (unknown) date) ##0 unknown) (unknown) (no (unknown) (unknown) (Glucosamine (units (u nknown) date) Sulfate 2 unknown) (unknown) (no (unknown) (unknown) 0.3 mg SL Q5-15M (units (unknown) date) PRN (Reason: unknown) chest pain) Qty: 25 0RF (unknown) (no (unknown) (unknown) [id number] (units (unkno wn) date) unknown) (unknown) (no (unknown) (unknown) 09/23/22 19:06 (units (unknown) date) unknown) (unknown) (no (unknown) (unknown) 09/23/22 19:42 (units (unknown) date) unknown) (unknown) (no (unknown) (unknown) 09/23/22 (units (unkno wn) date) unknown) (unknown) (no [...] 10 0RF unknown) (unknown) (no (unknown) (unknown) 19:00 09/23/22 (units (unknown) date) unknown) (unknown) (no (unknown) (unknown) 19:10 (units (unkno wn) date) unknown) (unknown) (no [...] 10 0RF unknown) (unknown) (no (unknown) (unknown) 87-year-old (units (un known) date) woman with a unknown) history of congestive heart failure, atrial (unknown) (no (unknown) (unknown) Afib (units (unkno [...] (unknown) (unknown) Blood Pressure (units (unknown) date) 133/73 09/23/22 unknown) 19:00 (unknown) (no (unknown) (unknown) Blood Pressure (units (unknown) date) 133/73 unknown) 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) (unknown) (no (unknown) (unknown) Capsule (units (unkno wn) date) unknown) (unknown) (no (unknown) (unknown) Chief complaint: (units (unknown) date) Shortness of unknown) Breath/Dyspnea (unknown) (no (unknown) (unknown) Closed (units (unkno wn) date) nondisplaced unknown) fracture of pelvis (unknown) (no (unknown) (unknown) Complete Blood (units (unknown) date) Count AUTO DIFF unknown) Stat (unknown) (no (unknown) (unknown) Comprehensive (units ( unknown) date) Metabolic Panel unknown) Stat (unknown) (no (unknown) (unknown) Course (units (unkno wn) date) unknown) (unknown) (no (unknown) (unknown) Covid-19 + FLU (units (unknown) date) A/B + RSV - PCR unknown) Stat (unknown) (no (unknown) (unknown) : 1935 (units (unknown) date) Acct:[id number] unknown) (unknown) (no (unknown) (unknown) Date of Service: (units (unknown) date) 09/23/22 unknown) (unknown) (no (unknown) (unknown) Departure (units (unkn own) date) unknown) (unknown) (no (unknown) (unknown) Diabetes (units (unkno wn) date) unknown) (unknown) (no (unknown) (unknown) Discharge Plan (units (unknown) date) unknown) (unknown) (no (unknown) (unknown) ED Orders (units (unkn own) date) unknown) (unknown) (no (unknown) (unknown) EKG-12 Lead Stat (units (unknown) date) unknown) (unknown) (no (unknown) (unknown) ER Physician: (units ( unknown) date) Rosa Maria Frost unknown) (unknown) (no (unknown) (unknown) Easy (units (unkno [...] unknown) (unknown) (no (unknown) (unknown) HPI - Female (units (u nknown) date) Genitourinary unknown) (unknown) (no (unknown) (unknown) HPI Narrative: (units (unknown) date) unknown) (unknown) (no (unknown) (unknown) History of [...] date) Signs: unknown) (unknown) (no (unknown) (unknown) [facility] (units (unknown) date) [address] unknown) [place] [address] (unknown) (no (unknown) (unknown) KCL-Chondroitin) (units (unknown) date) unknown) (unknown) (no (unknown) (unknown) Lauri Vasquez MD (units (unknown) date) [Primary Care unknown) Provider] (unknown) (no (unknown) (unknown) Lab Data (units (unkno wn) date) unknown) (unknown) (no (unknown) (unknown) Lactate (Lactic (units (unknown) date) Acid) Stat unknown) (unknown) (no (unknown) (unknown) Left foot drop (units (unknown) date) unknown) (unknown) (no (unknown) (unknown) MDM - Female (units (u nknown) date) Genitourinary unknown) (unknown) (no (unknown) (unknown) Measure peak (units (u nknown) date) expiratory flow unknown) ONCE (unknown) (no (unknown) (unknown) Medical History (units (unknown) date) (Reviewed unknown) 09/14/22 @ 01:47 by Fito Pagan DO) (unknown) (no (unknown) (unknown) Medication (units (unk nown) date) Instructions unknown) Recorded Confirmed (unknown) (no (unknown) (unknown) Medication (units (unk nown) date) Instructions unknown) Recorded (unknown) (no (unknown) (unknown) Mixed (units (unkno wn) date) hyperlipidemia unknown) (unknown) (no (unknown) (unknown) NT-proBNP (units (unkn own) date) (BNP-Adult 18+) unknown) Stat (unknown) (no (unknown) (unknown) No Action (units (unkn own) date) unknown) (unknown) (no (unknown) (unknown) Numbness (units (unkno wn) date) unknown) (unknown) (no (unknown) (unknown) Ordered: (units (unkno wn) date) unknown) (unknown) (no (unknown) (unknown) Orders (units (unkno wn) date) unknown) (unknown) (no (unknown) (unknown) Oxygen Delivery (units (unknown) date) Method 09/23/22 unknown) 19:00 (unknown) (no (unknown) (unknown) Oxygen Delivery (units (unknown) date) Method Room Air unknown) (unknown) (no (unknown) (unknown) Pacemaker (units (unkn own) date) unknown) (unknown) (no (unknown) (unknown) Patient History (units (unknown) date) unknown) (unknown) (no (unknown) (unknown) Patient: (units (unkno wn) date) White,Dallin A unknown) MR#: [id number] (unknown) (no (unknown) (unknown) Penicillins (units (un known) date) [PENICILLINS] unknown) Allergy Mild Rash Verified 09/23/22 19:56 (unknown) (no (unknown) (unknown) Pneumonia (units (unkn own) date) unknown) (unknown) (no (unknown) (unknown) Prescriptions: (units (unknown) date) unknown) (unknown) (no (unknown) (unknown) Previous Rx's (units ( unknown) date) unknown) (unknown) (no (unknown) (unknown) Prothrombin Time (units (unknown) date) INR Stat unknown) (unknown) (no (unknown) (unknown) Pulse Oximetry (units (unknown) date) 97 09/23/22 19:00 unknown) (unknown) (no (unknown) (unknown) Pulse Oximetry (units (unknown) date) 97 unknown) (unknown) (no (unknown) (unknown) Pulse Rate 73 (units ( unknown) date) 09/23/22 19:00 unknown) (unknown) (no (unknown) (unknown) Pulse Rate 73 (units ( unknown) date) unknown) (unknown) (no (unknown) (unknown) RT Consult Eval (units (unknown) date) and Treat NOW unknown) (unknown) (no (unknown) (unknown) Referrals: (units (unk nown) date) unknown) (unknown) (no (unknown) (unknown) Related Data (units (u nknown) date) unknown) (unknown) (no (unknown) (unknown) Respiratory Rate (units (unknown) date) 20 09/23/22 19:00 unknown) (unknown) (no (unknown) (unknown) Respiratory Rate (units (unknown) date) 20 unknown) (unknown) (no (unknown) (unknown) Rx Instructions: (units (unknown) date) unknown) (unknown) (no (unknown) (unknown) Scoliosis (units (unkn own) date) unknown) (unknown) (no (unknown) (unknown) Signed By: (units (unk nown) date) unknown) (unknown) (no (unknown) (unknown) Sleep disorder (units (unknown) date) unknown) (unknown) (no (unknown) (unknown) Stated (units (unkno wn) date) complaint: unknown) SOB/Blood Ox 99%/Passed Out (unknown) (no (unknown) (unknown) Status post (units [...] the lasix (unknown) (no (unknown) (unknown) Temperature 98 F (units (unknown) date) unknown) (unknown) (no (unknown) (unknown) Time Seen by (units (u nknown) date) Provider: unknown) 09/23/22 19:29 (unknown) (no (unknown) (unknown) Troponin I Stat (units (unknown) date) unknown) (unknown) (no (unknown) (unknown) Vital Signs - 8 (units (unknown) date) hr unknown) (unknown) (no (unknown) (unknown) Vital Signs (units (un known) date) unknown) (unknown) (no (unknown) (unknown) Vital signs: (units (u nknown) date) unknown) (unknown) (no (unknown) (unknown) XR chest 1V Stat (units (unknown) date) unknown) (unknown) (no (unknown) (unknown) [Embedded Image (units (unknown) date) Not Available] unknown) (unknown) (no (unknown) (unknown) alcohol intake (units (unknown) date) frequency: 0-2 unknown) drinks per day (unknown) (no (unknown) (unknown) capsule,extended (units (unknown) date) release unknown) (unknown) (no (unknown) (unknown) chest tightness (units (unknown) date) with Shortness of unknown) breath (unknown) (no (unknown) (unknown) fibrillation, (units ( unknown) date) prior stroke, unknown) diabetes, hyperlipidemia (unknown) (no (unknown) (unknown) fluorouracil 5 % [...] ##0 04/29/17 04/30/18 (unknown) (no (unknown) (unknown) hydrocodone 5 (units ( unknown) date) mg-acetaminophen unknown) 325 1 tab PO Q4-6H PRN pain #20 tabs 05/12/18 (unknown) (no (unknown) (unknown) hydrocodone-acet (units (unknown) date) aminophen [[place]] unknown) 5-325 mg tablet (unknown) (no (unknown) [...] (unknown) mg tablet (units (unkn own) date) ([place]) unknown) (unknown) (no (unknown) (unknown) multivitamin (units [...] [SULFITE] Allergy unknown) Severe from foods Verified 09/23/22 19:56 (unknown) (no (unknown) (unknown) tablet pain #25 [...] [Coumadin] 3 MG unknown) tablet Result panel 95 (unknown) (no date) (unknown) (unknown) 1.1 mg/dl (unkn own) (unknown) (no date) (unknown) (unknown) 1.2 (units unknown) (unknown) (unknown) (no date) (unknown) (unknown) 1.29 mg/dl (unkn own) (unknown) (no date) (unknown) (unknown) 1.6 (units unknown) (unknown) (unknown) (no date) (unknown) (unknown) 1.6 mmol/l (unkn own) (unknown) (no date) (unknown) (unknown) 124 mg/dl (unkn own) (unknown) (no date) (unknown) (unknown) 124 mg/dl (unkn own) (unknown) (no date) (unknown) (unknown) 134 mmol/l (unkn own) (unknown) (no date) (unknown) (unknown) 134 mmol/l (unkn own) (unknown) (no date) (unknown) (unknown) 141 u/l (unkn own) (unknown) (no date) (unknown) (unknown) 18.7 seconds (unkn own) (unknown) (no date) (unknown) (unknown) 18.7 seconds (unkn own) (unknown) (no date) (unknown) (unknown) 19.4 (units unknown) (unknown) (unknown) (no date) (unknown) (unknown) 21 iu/l (unkn own) (unknown) (no date) (unknown) (unknown) 25 mg/dl (unkn own) (unknown) (no date) (unknown) (unknown) 27 mmol/l (unkn own) (unknown) (no date) (unknown) (unknown) 28 iu/l (unkn own) (unknown) (no date) (unknown) (unknown) 3.3 g/dl (unkn own) (unknown) (no date) (unknown) (unknown) 3.9 mmol/l (unkn own) (unknown) (no date) (unknown) (unknown) 4.0 g/dl (unkn own) (unknown) (no date) (unknown) (unknown) 54 ml/min (unkn own) (unknown) (no date) (unknown) (unknown) 54 ml/min (unkn own) (unknown) (no date) (unknown) (unknown) 7.3 g/dl (unkn own) (unknown) (no date) (unknown) (unknown) 8.9 mg/dl (unkn own) (unknown) (no date) (unknown) (unknown) 94 mmol/l (unkn own) Result panel 96 (unknown) (no date) (unknown) (unknown) < 0.012 ng/ml (unkn own) (unknown) (no date) (unknown) (unknown) < 0.012 ng/ml (unkn own) (unknown) (no date) (unknown) (unknown) 1.1 mg/dl (unkn own) (unknown) (no date) (unknown) (unknown) 1.2 (units (unkn own) unknown) (unknown) (no date) (unknown) (unknown) 1.29 mg/dl (unkn own) (unknown) (no date) (unknown) (unknown) 124 mg/dl (unkn own) (unknown) (no date) (unknown) (unknown) 124 mg/dl (unkn own) (unknown) (no date) (unknown) (unknown) 134 mmol/l (unkn own) (unknown) (no date) (unknown) (unknown) 134 mmol/l (unkn own) (unknown) (no date) (unknown) (unknown) 141 u/l (unkn own) (unknown) (no date) (unknown) (unknown) 19.4 (units (unkn own) unknown) (unknown) (no date) (unknown) (unknown) 21 iu/l (unkn own) (unknown) (no date) (unknown) (unknown) 25 mg/dl (unkn own) (unknown) (no date) (unknown) (unknown) 2510 pg/ml (unkn own) (unknown) (no date) (unknown) (unknown) 2510 pg/ml (unkn own) (unknown) (no date) (unknown) (unknown) 27 mmol/l (unkn own) (unknown) (no date) (unknown) (unknown) 28 iu/l (unkn own) (unknown) (no date) (unknown) (unknown) 3.3 g/dl (unkn own) (unknown) (no date) (unknown) (unknown) 3.9 mmol/l (unkn own) (unknown) (no date) (unknown) (unknown) 4.0 g/dl (unkn own) (unknown) (no date) (unknown) (unknown) 54 ml/min (unkn own) (unknown) (no date) (unknown) (unknown) 54 ml/min (unkn own) (unknown) (no date) (unknown) (unknown) 7.3 g/dl (unkn own) (unknown) (no date) (unknown) (unknown) 8.9 mg/dl (unkn own) (unknown) (no date) (unknown) (unknown) 94 mmol/l (unkn own) Result panel 97 (unknown) (no (unknown) (unknown) (no value) (units (unk nown) date) unknown) (unknown) (no (unknown) (unknown) (Efudex) lesions (units (unknown) date) ##0 unknown) (unknown) (no (unknown) (unknown) (Glucosamine (units (u nknown) date) Sulfate 2 unknown) (unknown) (no (unknown) (unknown) 0.3 mg SL Q5-15M (units (unknown) date) PRN (Reason: unknown) chest pain) Qty: 25 0RF (unknown) (no (unknown) (unknown) [id number] (units (unkno wn) date) unknown) (unknown) (no (unknown) (unknown) 02/05/23 19:06 (units (unknown) date) unknown) (unknown) (no (unknown) (unknown) 09/23/22 19:42 (units (unknown) date) unknown) (unknown) (no (unknown) (unknown) 09/23/22 (units (unkno wn) date) unknown) (unknown) (no [...] 10 0RF unknown) (unknown) (no (unknown) (unknown) 19:00 09/23/22 (units (unknown) date) unknown) (unknown) (no (unknown) (unknown) 19:10 (units (unkno wn) date) unknown) (unknown) (no [...] 10 0RF unknown) (unknown) (no (unknown) (unknown) 8 rib fractures (units (unknown) date) and a right T6 unknown) and T7 transverse process fractures nondisplaced. (unknown) (no (unknown) (unknown) 87-year-old (units (un known) date) woman with a unknown) history of congestive heart failure, atrial (unknown) (no (unknown) (unknown) A trace (units (unkno wn) date) pneumothorax and unknown) trace right pleural effusion. Was observed in the (unknown) (no (unknown) (unknown) Abdomen: Soft, (units (unknown) date) nontender, good unknown) bowel tones, no flank pain (unknown) (no (unknown) (unknown) Afib (units (unkno [...] Date / Time (unknown) (no (unknown) (unknown) Atrial (units (unkno wn) date) fibrillation at a unknown) rate of 79. Single paced beat appreciated, no acute (unknown) (no (unknown) (unknown) BCC (basal cell (units (unknown) date) carcinoma of unknown) skin) (unknown) (no (unknown) (unknown) BNP slightly (units (u nknown) date) elevated unknown) (unknown) (no (unknown) (unknown) Bilateral lower (units (unknown) date) extremity edema unknown) (unknown) (no (unknown) (unknown) Blood Pressure (units (unknown) date) 133/73 09/23/22 unknown) 19:00 (unknown) (no (unknown) (unknown) Blood Pressure (units (unknown) date) 133/73 unknown) (unknown) (no (unknown) (unknown) Bones and chest (units (unknown) date) wall: No unknown) suspicious bony lesions. Overlying soft tissues (unknown) (no (unknown) (unknown) CBC is reviewed. (units (unknown) date) No leukocytosis. unknown) Slight decrease in H+H to 12.5 and 36.7. (unknown) (no (unknown) (unknown) CC: Severe (units (unk nown) date) apneic spells any unknown) time he falls asleep. 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) (unknown) (no (unknown) (unknown) Capsule (units (unkno wn) date) unknown) (unknown) (no (unknown) (unknown) Cardiac: Regular (units (unknown) date) rate and rhythm unknown) no murmurs no bruits (unknown) (no (unknown) (unknown) Chest x-ray: (units (u nknown) date) unknown) (unknown) (no (unknown) (unknown) Chief complaint: (units (unknown) date) Shortness of unknown) Breath/Dyspnea (unknown) (no (unknown) (unknown) Closed (units (unkno wn) date) nondisplaced unknown) fracture of pelvis (unknown) (no (unknown) (unknown) Comparison is (units ( unknown) date) January of 2021 unknown) (unknown) (no (unknown) (unknown) Complete Blood (units (unknown) date) Count AUTO DIFF unknown) Stat (unknown) (no (unknown) (unknown) Complicating (units (u nknown) date) co-morbidities: unknown) Recent fall down stairs with rib fractures and (unknown) (no (unknown) (unknown) Comprehensive (units ( unknown) date) Metabolic Panel unknown) Stat (unknown) (no (unknown) (unknown) Consultations: (units (unknown) date) unknown) (unknown) (no (unknown) (unknown) Corroborating (units ( unknown) date) data: unknown) (unknown) (no (unknown) (unknown) Course (units (unkno wn) date) unknown) (unknown) (no (unknown) (unknown) Covid-19 + FLU (units (unknown) date) A/B + RSV - PCR unknown) Stat (unknown) (no (unknown) (unknown) : 1935 (units (unknown) date) Acct:[id number] unknown) (unknown) (no (unknown) (unknown) Data collected (units (unknown) date) from: patient, unknown) (unknown) (no (unknown) (unknown) Date of Service: (units (unknown) date) 09/23/22 unknown) (unknown) (no (unknown) (unknown) Departure (units (unkn own) date) unknown) (unknown) (no (unknown) (unknown) Diabetes (units (unkno wn) date) unknown) (unknown) (no (unknown) (unknown) Dictated by: (units (u nknown) date) Adelina Romano, unknown) Emeterio on 09/23/2022 at 19:27 (unknown) (no (unknown) (unknown) Differential (units (u nknown) date) considered: unknown) Hemothorax, pneumothorax, complications from recent (unknown) (no (unknown) (unknown) Discharge Plan (units (unknown) date) unknown) (unknown) (no (unknown) (unknown) Discussion: (units (un known) date) unknown) (unknown) (no (unknown) (unknown) Disposition: see (units (unknown) date) below, along with unknown) detailed discharge instructions that have (unknown) (no (unknown) (unknown) ECG Data (units (unkno wn) date) unknown) (unknown) (no (unknown) (unknown) ED Orders (units (unkn own) date) unknown) (unknown) (no (unknown) (unknown) EKG-12 Lead Stat (units (unknown) date) unknown) (unknown) (no (unknown) (unknown) ER Physician: (units ( unknown) date) Rosa Maria Frost unknown) (unknown) (no (unknown) (unknown) Easy (units (unkno wn) date) bruisability unknown) (unknown) (no (unknown) (unknown) Emergency Report (units (unknown) date) unknown) (unknown) (no (unknown) (unknown) Exam documented (units (unknown) date) above, pertinent unknown) findings include: He is alert and appropriate, (unknown) (no (unknown) (unknown) Exam (units (unkno wn) date) unknown) (unknown) (no (unknown) (unknown) Extremities: No (units (unknown) date) trauma, well unknown) perfused, 1+ edema bilaterally (unknown) (no (unknown) (unknown) FINDINGS: (units (unkn own) date) unknown) (unknown) (no (unknown) (unknown) Fragile skin (units (u nknown) date) unknown) (unknown) (no (unknown) (unknown) Full and (units (unkno wn) date) symmetrical air unknown) movement (unknown) (no (unknown) (unknown) GERD (units (unkno wn) date) (gastroesophageal unknown) reflux disease) (unknown) (no (unknown) (unknown) General (units (unkno wn) date) unknown) (unknown) (no (unknown) (unknown) General: Healthy (units (unknown) date) appearing, in no unknown) acute distress. Able to give a complete and (unknown) (no (unknown) (unknown) HEENT: Moist (units (u nknown) date) mucous membranes, unknown) normal sclera with reactive pupils, skin cancer (unknown) (no (unknown) (unknown) HPI - Female (units (u nknown) date) Genitourinary unknown) (unknown) (no (unknown) (unknown) HPI Narrative: (units (unknown) date) unknown) (unknown) (no (unknown) (unknown) History of [...] date) tonsillectomy unknown) (unknown) (no (unknown) (unknown) IMPRESSION: No (units (unknown) date) acute process. unknown) (unknown) (no (unknown) (unknown) INR is slightly (units (unknown) date) subtherapeutic at unknown) 1.6 (unknown) (no (unknown) (unknown) Imaging Data (units (u nknown) date) unknown) (unknown) (no (unknown) (unknown) Imaging studies (units (unknown) date) independently unknown) reviewed: Chest x-ray shows no significant (unknown) (no (unknown) (unknown) Independently (units ( unknown) date) reviewed EKG as unknown) above (unknown) (no (unknown) (unknown) Initial Vital (units ( unknown) date) Signs unknown) (unknown) (no (unknown) (unknown) Initial Vital (units ( unknown) date) Signs: unknown) (unknown) (no (unknown) (unknown) Interpretation: (units (unknown) date) unknown) (unknown) (no (unknown) (unknown) [facility] (units (unknown) date) [address] unknown) [place] [address] (unknown) (no (unknown) (unknown) [facility]) (units (unknown) date) unknown) (unknown) (no (unknown) (unknown) Lauri Vasquez MD (units (unknown) date) [Primary Care unknown) Provider] (unknown) (no (unknown) (unknown) Lab Data (units (unkno wn) date) unknown) (unknown) (no (unknown) (unknown) Lab Test results (units (unknown) date) independently unknown) reviewed as above. Pertinent findings: (unknown) (no (unknown) (unknown) Lactate (Lactic (units (unknown) date) Acid) Stat unknown) (unknown) (no (unknown) (unknown) Left foot drop (units (unknown) date) unknown) (unknown) (no (unknown) (unknown) Lungs and (units (unkn own) date) pleura: Lungs are unknown) clear. No pleural effusions or pneumothorax. (unknown) (no (unknown) (unknown) MDM - Female (units (u nknown) date) Genitourinary unknown) (unknown) (no (unknown) (unknown) MDM Narrative (units ( unknown) date) unknown) (unknown) (no (unknown) (unknown) Measure peak (units (u nknown) date) expiratory flow unknown) ONCE (unknown) (no (unknown) (unknown) Mediastinum: (units (u nknown) date) Mediastinal unknown) contours appear normal. Heart size is normal. (unknown) (no (unknown) (unknown) Medical History (units (unknown) date) (Reviewed unknown) 09/14/22 @ 01:47 by Fito Pagan DO) (unknown) (no (unknown) (unknown) Medical decision (units (unknown) date) making narrative: unknown) (unknown) (no (unknown) (unknown) Medical records (units (unknown) date) reviewed: Prior unknown) sleep visits, pulmonary function tests, (unknown) (no (unknown) (unknown) Medication (units (unk nown) date) Instructions unknown) Recorded Confirmed (unknown) (no (unknown) (unknown) Medication (units (unk nown) date) Instructions unknown) Recorded (unknown) (no (unknown) (unknown) Mixed (units (unkno wn) date) hyperlipidemia unknown) (unknown) (no (unknown) (unknown) NT-proBNP (units (unkn own) date) (BNP-Adult 18+) unknown) Stat (unknown) (no (unknown) (unknown) Narrative: (units (unk nown) date) unknown) (unknown) (no (unknown) (unknown) Neck: No JVD, (units ( unknown) date) supple unknown) (unknown) (no (unknown) (unknown) Neurologic: (units (un known) date) Grossly unknown) neurologically intact with no obvious asymmetries or (unknown) (no (unknown) (unknown) No Action (units (unkn own) date) unknown) (unknown) (no (unknown) (unknown) Numbness (units (unkno wn) date) unknown) (unknown) (no (unknown) (unknown) Ordered: (units (unkno wn) date) unknown) (unknown) (no (unknown) (unknown) Orders (units (unkno wn) date) unknown) (unknown) (no (unknown) (unknown) Oxygen Delivery (units (unknown) date) Method 09/23/22 unknown) 19:00 (unknown) (no (unknown) (unknown) Oxygen Delivery (units (unknown) date) Method Room Air unknown) (unknown) (no (unknown) (unknown) Pacemaker (units (unkn own) date) unknown) (unknown) (no (unknown) (unknown) Patient History (units (unknown) date) unknown) (unknown) (no (unknown) (unknown) Patient: (units (unkno wn) date) Joel Oliveirad A unknown) MR#: [id number] (unknown) (no (unknown) (unknown) Penicillins (units (un known) date) [PENICILLINS] unknown) Allergy Mild Rash Verified 09/23/22 19:56 (unknown) (no (unknown) (unknown) Pneumonia (units (unkn own) date) unknown) (unknown) (no (unknown) (unknown) Prescriptions: (units (unknown) date) unknown) (unknown) (no (unknown) (unknown) Previous Rx's (units ( unknown) date) unknown) (unknown) (no (unknown) (unknown) Prothrombin Time (units (unknown) date) INR Stat unknown) (unknown) (no (unknown) (unknown) Psych: (units (unkno wn) date) Cooperative, unknown) appropriate insight and affect (unknown) (no (unknown) (unknown) Pulse Oximetry (units (unknown) date) 97 09/23/22 19:00 unknown) (unknown) (no (unknown) (unknown) Pulse Oximetry (units (unknown) date) 97 unknown) (unknown) (no (unknown) (unknown) Pulse Rate 73 (units ( unknown) date) 09/23/22 19:00 unknown) (unknown) (no (unknown) (unknown) Pulse Rate 73 (units ( unknown) date) unknown) (unknown) (no (unknown) (unknown) RT Consult Eval (units (unknown) date) and Treat NOW unknown) (unknown) (no (unknown) (unknown) Radiologist's (units ( unknown) date) Impression: unknown) (unknown) (no (unknown) (unknown) Re-evaluations: (units (unknown) date) After reviewing unknown) initial blood work, discussed findings with (unknown) (no (unknown) (unknown) Referrals: (units (unk nown) date) unknown) (unknown) (no (unknown) (unknown) Related Data (units (u nknown) date) unknown) (unknown) (no (unknown) (unknown) Remainder of (units (u nknown) date) complete review unknown) of systems is otherwise unremarkable except for (unknown) (no (unknown) (unknown) Respiratory Rate (units (unknown) date) 20 09/23/22 19:00 unknown) (unknown) (no (unknown) (unknown) Respiratory Rate (units (unknown) date) 20 unknown) (unknown) (no (unknown) (unknown) Respiratory: (units (u nknown) date) Lungs are clear unknown) to auscultation, no wheezing no rales no rhonchi. (unknown) (no (unknown) (unknown) Review of (units (unkn own) date) Systems unknown) (unknown) (no (unknown) (unknown) Rx Instructions: (units (unknown) date) unknown) (unknown) (no (unknown) (unknown) Scoliosis (units (unkn own) date) unknown) (unknown) (no (unknown) (unknown) Signed By: (units (unk nown) date) unknown) (unknown) (no (unknown) (unknown) Skin: Warm and (units (unknown) date) dry, no rashes unknown) (unknown) (no (unknown) (unknown) Sleep disorder (units (unknown) date) unknown) (unknown) (no (unknown) (unknown) Social (units (unkno wn) date) determinants of unknown) health that may influence the patients condition: Age, (unknown) (no (unknown) (unknown) Stated (units (unkno wn) date) complaint: unknown) SOB/Blood Ox 99%/Passed Out (unknown) (no (unknown) (unknown) Status post (units (un known) date) bilateral unknown) cataract extraction (unknown) (no (unknown) (unknown) Substance Use (units ( unknown) date) Type: does not unknown) use (unknown) (no (unknown) (unknown) Surgical History (units (unknown) date) (Reviewed unknown) 02/21/21 @ 10:52 by Johnson Patel MD) (unknown) (no (unknown) (unknown) Surgical changes (units (unknown) date) and devices: unknown) Left-sided pacer (unknown) (no (unknown) (unknown) Take for pitting (units (unknown) date) swollen legs only unknown) with shortness of breath (unknown) (no (unknown) (unknown) Take only when (units (unknown) date) you are taking unknown) the lasix (unknown) (no (unknown) (unknown) Temperature 98 F (units (unknown) date) unknown) (unknown) (no (unknown) (unknown) Time Seen by (units (u nknown) date) Provider: unknown) 09/23/22 19:29 (unknown) (no (unknown) (unknown) Treatments: (units (un known) date) unknown) (unknown) (no (unknown) (unknown) Troponin I Stat (units (unknown) date) unknown) (unknown) (no (unknown) (unknown) Troponin (units (unkno wn) date) unremarkable unknown) (unknown) (no (unknown) (unknown) Vital Signs - 8 (units (unknown) date) hr unknown) (unknown) (no (unknown) (unknown) Vital Signs (units (un known) date) unknown) (unknown) (no (unknown) (unknown) Vital signs: (units (u nknown) date) unknown) (unknown) (no (unknown) (unknown) XR chest 1V Stat (units (unknown) date) unknown) (unknown) (no (unknown) (unknown) [Embedded Image (units (unknown) date) Not Available] unknown) (unknown) (no (unknown) (unknown) abnormalities (units ( unknown) date) unknown) (unknown) (no (unknown) (unknown) acute coronary (units (unknown) date) syndrome. Patient unknown) is agreeable to workup (unknown) (no (unknown) (unknown) additional (units (unk nown) date) outpatient follow unknown) up (unknown) (no (unknown) (unknown) afraid to go to (units (unknown) date) sleep. He unknown) describes no recent change to weight has continued to (unknown) (no (unknown) (unknown) alcohol intake (units (unknown) date) frequency: 0-2 unknown) drinks per day (unknown) (no (unknown) (unknown) also like to do (units (unknown) date) a CT scan of the unknown) chest to look for pulmonary embolism, as well (unknown) (no (unknown) (unknown) and (units (unkno wn) date) anticoagulated on unknown) warfarin. (unknown) (no (unknown) (unknown) and has since (units ( unknown) date) pick them up to unknown) but does not use them much. Main concern at this (unknown) (no (unknown) (unknown) appear (units (unkno wn) date) unknown) (unknown) (no (unknown) (unknown) as review trauma (units (unknown) date) findings. His pro unknown) BNP is elevated suggesting slightly (unknown) (no (unknown) (unknown) been reviewed (units ( unknown) date) with patient as unknown) well as indications for ED re-evaluation and (unknown) (no (unknown) (unknown) but is not (units (unk nown) date) entirely certain. unknown) Would like to repeat a CT scan to make sure there (unknown) (no (unknown) (unknown) capsule,extended (units (unknown) date) release unknown) (unknown) (no (unknown) (unknown) chest tightness (units (unknown) date) with Shortness of unknown) breath (unknown) (no (unknown) (unknown) coherent (units (unkno wn) date) history. unknown) Well-nourished well-developed (unknown) (no (unknown) (unknown) day that cause (units (unknown) date) him to wake up in unknown) a panic. Frequently that panic and anxiety (unknown) (no (unknown) (unknown) difficulty (units (unk nown) date) accessing unknown) healthcare (unknown) (no (unknown) (unknown) dramatically (units (u nknown) date) worsened over the unknown) last 3 months (unknown) (no (unknown) (unknown) edema minimal (units ( unknown) date) tenderness unknown) related to the known rib and transverse process (unknown) (no (unknown) (unknown) emergency (units (unkn own) date) department with unknown) repeat x-ray showing the pneumothorax was not (unknown) (no (unknown) (unknown) exacerbated by (units (unknown) date) pain and recent unknown) fall, infectious etiology, central sleep apnea, (unknown) (no (unknown) (unknown) exacerbation of (units (unknown) date) a chronic problem unknown) with uncertain prognosis (unknown) (no (unknown) (unknown) expanding he was (units (unknown) date) discharged home. unknown) He presented to [facility] (unknown) (no (unknown) (unknown) fall, acute (units (un known) date) coronary unknown) syndrome, congestive heart failure, severe sleep apnea (unknown) (no (unknown) (unknown) fibrillation, (units ( unknown) date) prior stroke, unknown) diabetes, hyperlipidemia with sleep apnea who has (unknown) (no (unknown) (unknown) fluorouracil 5 % (units (unknown) date) topical cream 1 unknown) carter topical PRN PRN skin cancer 04/29/17 (unknown) (no (unknown) (unknown) fluorouracil (units (u nknown) date) [Efudex] 5 % unknown) cream (unknown) (no (unknown) (unknown) fractures. Rate (units (unknown) date) controlled atrial unknown) fibrillation and no jugular venous distention (unknown) (no (unknown) (unknown) furosemide 20 mg [...] ##0 04/29/17 04/30/18 (unknown) (no (unknown) (unknown) had not picked (units (unknown) date) up his pain unknown) medications at that time. Was prescribed oxycodone (unknown) (no (unknown) (unknown) heart failure. (units (unknown) date) Complaints of unknown) significant exertional dyspnea that has (unknown) (no (unknown) (unknown) hydrocodone 5 (units ( unknown) date) mg-acetaminophen unknown) 325 1 tab PO Q4-6H PRN pain #20 tabs 05/12/18 (unknown) (no (unknown) (unknown) hydrocodone-acet (units (unknown) date) aminophen [[place]] unknown) 5-325 mg tablet (unknown) (no (unknown) (unknown) intracranial (units (u nknown) date) hemorrhage unknown) affecting breathing issues related to recent fall (unknown) (no (unknown) (unknown) involving the (units ( unknown) date) helix of his unknown) right ear (unknown) (no (unknown) (unknown) is not subdural (units (unknown) date) that might be unknown) causing worsening central sleep apnea and would (unknown) (no (unknown) (unknown) ischemic changes (units (unknown) date) unknown) (unknown) (no (unknown) [...] (unknown) mg tablet (units (unkn own) date) ([place]) unknown) (unknown) (no (unknown) (unknown) multivitamin (units (u nknown) date) (Multiple unknown) Vitamins 1 tab PO QDAY ##0 04/29/17 04/30/18 (unknown) (no (unknown) (unknown) multivitamin (units (u nknown) date) [Multiple unknown) Vitamins] 1 EACH tablet (unknown) (no (unknown) (unknown) never been able (units (unknown) date) to complete a unknown) full workup to finally be prescribed CPAP machine (unknown) (no (unknown) (unknown) nitroglycerin (units ( unknown) date) 0.3 mg sublingual unknown) 0.3 mg sublingual Q5-15M PRN chest 10/01/19 (unknown) (no (unknown) (unknown) nitroglycerin (units ( unknown) date) 0.3 mg tablet, unknown) sublingual (unknown) (no (unknown) (unknown) not having overt (units (unknown) date) palpitations but unknown) does note that he is in atrial fibrillation (unknown) (no (unknown) (unknown) omeprazole 20 mg (units (unknown) date) Tablet,Delayed unknown) Release (Dr/Ec) (unknown) (no (unknown) (unknown) omeprazole 20 mg (units (unknown) date) tablet,delayed 20 unknown) mg PO BID 04/30/18 02/21/21 (unknown) (no (unknown) (unknown) on the 05/02 (units (un known) date) complaining of unknown) shortness of breath particularly with exertion. He (unknown) (no (unknown) (unknown) orthopedic (units (unk nown) date) surgery for his unknown) chronic back pain as well as prior ER notes related (unknown) (no (unknown) (unknown) patient. He (units (un known) date) believes there unknown) was a CT scan done with a fall a couple of weeks ago (unknown) (no (unknown) (unknown) potassium (units (unkn own) date) chloride 8 mEq 8 unknown) meq PO DAILY #10 caps 10/01/19 (unknown) (no (unknown) (unknown) potassium (units (unkn own) date) chloride 8 mEq unknown) capsule, extended release (unknown) (no (unknown) (unknown) presents (units (unkno wn) date) complaining of unknown) severe apneic episodes when he falls asleep during the (unknown) (no (unknown) (unknown) release (units (unkno wn) date) unknown) (unknown) (no (unknown) (unknown) [facility] (units (unknown) date) General where unknown) x-rays revealed displaced right posterior 6 7 and (unknown) (no (unknown) (unknown) speaking in full (units (unknown) date) sentences, no unknown) wheezing, no crackles minimal lower extremity (unknown) (no (unknown) (unknown) sulfite (units (unkno wn) date) [SULFITE] Allergy unknown) Severe from foods Verified 09/23/22 19:56 (unknown) (no (unknown) (unknown) tablet pain #25 (units (unknown) date) tabs unknown) (unknown) (no (unknown) (unknown) tablet) (units (unkno wn) date) unknown) (unknown) (no (unknown) (unknown) tablet,extended (units (unknown) date) release 24 hr unknown) (unknown) (no (unknown) (unknown) that included in (units (unknown) date) the HPI. unknown) (unknown) (no (unknown) (unknown) time is that any (units (unknown) date) time he falls unknown) asleep he stops breathing wakes up panic and is (unknown) (no (unknown) (unknown) to fall on (units (unk nown) date) September 12 unknown) (unknown) (no (unknown) (unknown) transverse (units (unk nown) date) process fractures unknown) in the thorax, recent pneumothorax. Congestive (unknown) (no (unknown) (unknown) unremarkable. (units ( unknown) date) unknown) (unknown) (no (unknown) (unknown) until response; (units (unknown) date) do not exceed 3 unknown) doses per episode, take for chest pain and or (unknown) (no (unknown) (unknown) use his (units (unkno wn) date) prescribed 60 mg unknown) of Lasix daily. No fevers no particular cough. He is (unknown) (no (unknown) (unknown) warfarin 3 mg (units ( unknown) date) tablet (Coumadin) unknown) 5 mg PO SEEINSTR 04/30/18 02/21/21 (unknown) (no (unknown) (unknown) warfarin (units (unkno wn) date) [Coumadin] 3 MG unknown) tablet (unknown) (no (unknown) (unknown) will last for a (units (unknown) date) couple of days. unknown) He fell down the stairs on September 12 was (unknown) (no (unknown) (unknown) worsening (units (unkn own) date) congestive heart unknown) failure with negative troponin suggesting lack of Result panel 98 (unknown) (no (unknown) (unknown) (no value) (units (unk nown) date) unknown) (unknown) (no (unknown) (unknown) [id number] (units (unkn own) date) unknown) (unknown) (no (unknown) (unknown) 09/23/22 (units (unkno wn) date) unknown) (unknown) (no (unknown) (unknown) 1. No acute (units (un known) date) intracranial unknown) abnormality. (unknown) (no (unknown) (unknown) 1. No evidence of (units (unknown) date) pulmonary embolism. unknown) There is enlargement of the pulmonary (unknown) (no (unknown) (unknown) [address] (units (unknown) date) unknown) (unknown) (no (unknown) (unknown) 2. Bilateral (units (u nknown) date) findings consistent unknown) with chronic interstitial lung disease with a (unknown) (no (unknown) (unknown) 2. 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 (unknown) (no (unknown) (unknown) 4. No acute rib (units (unknown) date) fractures unknown) identified. (unknown) (no (unknown) (unknown) Abdomen: (units (unkno wn) date) Visualized upper unknown) abdomen demonstrates cysts within the visualized (unknown) (no (unknown) (unknown) Accession Number: (units (unknown) date) [id number] unknown) (unknown) (no (unknown) (unknown) Accession Number: (units (unknown) date) [id number] unknown) (unknown) (no (unknown) (unknown) After the (units (unkn own) date) administration of unknown) intravenous contrast, 2 mm thick sections acquired (unknown) (no (unknown) (unknown) Age/Sex: 87 / M (units (unknown) date) Date of Service: unknown) (unknown) (no (unknown) (unknown) [place], [place] (units ( unknown) date) [id number] unknown) (unknown) (no (unknown) (unknown) Approved by: (units (u nknown) date) Chema Liu, unknown) Emeterio on 09/23/2022 at 21:06 (unknown) (no (unknown) (unknown) Approved by: (units (u nknown) date) Chema Liu unknown) MXiang on 09/23/2022 at 21:25 (unknown) (no (unknown) (unknown) Axillae: No (units (un known) date) lymphadenopathy by unknown) size criteria. (unknown) (no (unknown) (unknown) Bones: There are (units (unknown) date) healed fractures of unknown) the right 5th and 6th ribs. No acute rib (unknown) (no (unknown) (unknown) Brain: No (units (unkn own) date) intracranial unknown) hemorrhage, mass, or mass effect. Encephalomalacia is (unknown) (no (unknown) (unknown) [facility], [facility], XR unknown) CHEST 1V, 09/23/2022, 19:17. (unknown) (no (unknown) (unknown) COMPARISON: None. (units (unknown) date) unknown) (unknown) (no (unknown) (unknown) CSF spaces: Basal (units (unknown) date) cisterns are unknown) patent. No extra-axial fluid collections. The (unknown) (no (unknown) (unknown) CT Scan Report (units (unknown) date) unknown) (unknown) (no (unknown) (unknown) Chest Wall: There (units (unknown) date) is a left chest unknown) wall pacemaker with leads extending into the (unknown) (no (unknown) (unknown) : 1935 (units (unknown) date) Acct:[id number] unknown) (unknown) (no (unknown) (unknown) Dictated by: (units (u nknown) date) Chema Liu, unknown) Emeterio on 09/23/2022 at 21:05 (unknown) (no (unknown) (unknown) Dictated by: (units (u nknown) date) Chema Liu, unknown) Emeterio on 09/23/2022 at 21:17 (unknown) (no (unknown) (unknown) Esophagus: No wall (units (unknown) date) thickening. No unknown) hiatal hernia. (unknown) (no (unknown) (unknown) FINDINGS: (units (unkn own) date) unknown) (unknown) (no (unknown) (unknown) For radiation dose (units (unknown) date) reduction, the unknown) following was used: automated exposure (unknown) (no (unknown) (unknown) Heart: Heart size (units (unknown) date) is enlarged. No unknown) pericardial effusion. (unknown) (no (unknown) (unknown) IMPRESSION: (units (un known) date) unknown) (unknown) (no (unknown) (unknown) INDICATIONS: (units (u nknown) date) recent fall down unknown) stairs, worsening apnic spells (unknown) (no (unknown) (unknown) INDICATIONS: (units (u nknown) date) trauma 09/13, unknown) warfarin, worsening apnic spells (unknown) (no (unknown) (unknown) Image quality: (units (unknown) date) Excellent. unknown) (unknown) (no (unknown) (unknown) [facility] (units (unknown) date) unknown) (unknown) (no (unknown) (unknown) Loc: ED (units (unkno wn) date) unknown) (unknown) (no (unknown) (unknown) [place]: No (units (unknown) date) lymphadenopathy by unknown) size criteria. (unknown) (no (unknown) (unknown) Lungs and Airways: (units (unknown) date) No acute unknown) consolidation. There is peripheral subpleural (unknown) (no (unknown) (unknown) Mediastinum and (units (unknown) date) [place]: No unknown) lymphadenopathy by size criteria. (unknown) (no (unknown) (unknown) Noncontrast 4.5 mm (units (unknown) date) thick angled axial unknown) sections acquired from the foramen magnum (unknown) (no (unknown) (unknown) Ordering Provider: (units (unknown) date) Rosa Maria Frost MD unknown) (unknown) (no (unknown) (unknown) PROCEDURE: CT (units ( unknown) date) ANGIO CHEST PE unknown) PROTOCOL (unknown) (no (unknown) (unknown) PROCEDURE: CT (units ( unknown) date) HEAD/BRAIN WO CON unknown) (unknown) (no (unknown) (unknown) Patient: (units (unkno wn) date) Jorge Oliveirainald A unknown) MR#: [id number] (unknown) (no (unknown) (unknown) [place]: No (units (unk nown) date) pneumothorax or unknown) pleural effusions. (unknown) (no (unknown) (unknown) Procedure: CT (units ( unknown) date) angio chest PE unknown) protocol (unknown) (no (unknown) (unknown) Procedure: CT (units ( unknown) date) head/brain wo con unknown) (unknown) (no (unknown) (unknown) Pulmonary (units (unkn own) date) arteries: Pulmonary unknown) arteries demonstrate no intraluminal filling (unknown) (no (unknown) (unknown) Signed (units (unkno wn) date) unknown) (unknown) (no (unknown) (unknown) Sinuses: (units (unkno wn) date) Visualized sinuses unknown) and mastoids are clear. (unknown) (no (unknown) (unknown) Skull and face: (units (unknown) date) Calvarium and unknown) visualized facial bones appear intact, without (unknown) (no (unknown) (unknown) TECHNIQUE: (units (unk nown) date) unknown) (unknown) (no (unknown) (unknown) There are linear (units (unknown) date) areas of scarring unknown) also demonstrated in the lung bases. There (unknown) (no (unknown) (unknown) There is (units (unkno wn) date) intracranial unknown) internal carotid artery atherosclerosis. (unknown) (no (unknown) (unknown) Thoracic Vessels: (units (unknown) date) There is aneurysmal unknown) dilatation of the thoracic aorta. The (unknown) (no (unknown) (unknown) Thyroid: (units (unkno wn) date) Visualized thyroid unknown) demonstrates no discrete nodules. (unknown) (no (unknown) (unknown) adjustment of mA (units (unknown) date) and/or kV according unknown) to patient size. (unknown) (no (unknown) (unknown) airways are (units (un known) date) patent. unknown) (unknown) (no (unknown) (unknown) and central (units (un known) date) unknown) (unknown) (no (unknown) (unknown) aorta measures up (units (unknown) date) to 4.1 cm in unknown) diameter. The aortic arch measures up to 3.1 cm (unknown) (no (unknown) (unknown) arterial (units (unkno wn) date) unknown) (unknown) (no (unknown) (unknown) arteries (units (unkno wn) date) unknown) (unknown) (no (unknown) (unknown) arteries, with (units (unknown) date) unknown) (unknown) (no (unknown) (unknown) ascending (units (unkn own) date) unknown) (unknown) (no (unknown) (unknown) at the (units (unkno wn) date) unknown) (unknown) (no (unknown) (unknown) atrium and right (units (unknown) date) ventricle. unknown) (unknown) (no (unknown) (unknown) bilateral (units (unkn own) date) bronchial wall unknown) thickening with a basilar predominance. The trachea (unknown) (no (unknown) (unknown) changes. (units (unkno wn) date) unknown) (unknown) (no (unknown) (unknown) consistent with (units (unknown) date) unknown) (unknown) (no (unknown) (unknown) control, (units (unkno wn) date) unknown) (unknown) (no (unknown) (unknown) defects to (units (unk nown) date) unknown) (unknown) (no (unknown) (unknown) demonstrated (units (u nknown) date) within the medial unknown) left temporal lobe and left occipital lobe (unknown) (no (unknown) (unknown) diaphragmatic (units ( unknown) date) hiatus, the aorta unknown) measures up to 2.8 cm. (unknown) (no (unknown) (unknown) following (units (unkn own) date) unknown) (unknown) (no (unknown) (unknown) fractures (units (unkn own) date) unknown) (unknown) (no (unknown) (unknown) from the (units (unkno wn) date) unknown) (unknown) (no (unknown) (unknown) hypertension. (units ( unknown) date) unknown) (unknown) (no (unknown) (unknown) identified. (units (un known) date) Visualized osseous unknown) structures demonstrate no suspicious lesions. (unknown) (no (unknown) (unknown) intensity (units (unkn own) date) unknown) (unknown) (no (unknown) (unknown) is mild (units (unkno wn) date) unknown) (unknown) (no (unknown) (unknown) kidneys. (units (unkno wn) date) unknown) (unknown) (no (unknown) (unknown) lesions. (units (unkno wn) date) unknown) (unknown) (no (unknown) (unknown) lung disease. (units ( unknown) date) unknown) (unknown) (no (unknown) (unknown) matter (units (unkno wn) date) hypodensities unknown) consistent with moderate chronic small vessel ischemic (unknown) (no (unknown) (unknown) of a prior (units (unk nown) date) infarct. unknown) (unknown) (no (unknown) (unknown) patient (units (unkno wn) date) unknown) (unknown) (no (unknown) (unknown) pattern (units (unkno wn) date) unknown) (unknown) (no (unknown) (unknown) projection (MIP) (units (unknown) date) coronal and unknown) sagittal reformats were then acquired through the (unknown) (no (unknown) (unknown) pulmonary apices (units (unknown) date) to the posterior unknown) costophrenic angles. 3-dimensional maximum (unknown) (no (unknown) (unknown) resultant (units (unkn own) date) ventricular and unknown) sulcal prominence. (unknown) (no (unknown) (unknown) reticulation (units (u nknown) date) unknown) (unknown) (no (unknown) (unknown) right (units (unkno wn) date) unknown) (unknown) (no (unknown) (unknown) sequelae of a (units ( unknown) date) prior infarct. unknown) There are subcortical, periventricular and deep (unknown) (no (unknown) (unknown) size. (units (unkno wn) date) unknown) (unknown) (no (unknown) (unknown) suggest central (units (unknown) date) pulmonary embolism. unknown) There is enlargement of the pulmonary (unknown) (no (unknown) (unknown) suggestive of NSIP (units (unknown) date) unknown) (unknown) (no (unknown) (unknown) suggestive of (units ( unknown) date) pulmonary arterial unknown) hypertension. (unknown) (no (unknown) (unknown) suspicious (units (unk nown) date) unknown) (unknown) (no (unknown) (unknown) the main pulmonary (units (unknown) date) artery measuring up unknown) to 4.2 cm suggestive of pulmonary (unknown) (no (unknown) (unknown) the (units (unkno wn) date) unknown) (unknown) (no (unknown) (unknown) thorax. (units (unkno wn) date) unknown) (unknown) (no (unknown) (unknown) to the (units (unkno wn) date) unknown) (unknown) (no (unknown) (unknown) ventricles are (units (unknown) date) symmetric in size unknown) and shape. There is cerebral volume loss, (unknown) (no (unknown) (unknown) vertex, with (units (u nknown) date) coronal and unknown) sagittal reformats. For radiation dose reduction, the (unknown) (no (unknown) (unknown) vertex. The (units (un known) date) proximal descending unknown) aorta measures up to 3.0 cm. At the level of (unknown) (no (unknown) (unknown) was used: (units (unkn own) date) automated exposure unknown) control, adjustment of mA and/or kV according to (unknown) (no (unknown) (unknown) white (units (unkno wn) date) unknown) (unknown) (no (unknown) (unknown) with indistinct (units (unknown) date) ground-glass unknown) opacities consistent with chronic interstitial (unknown) (no (unknown) (unknown) with sequelae (units ( unknown) date) unknown) (unknown) (no (unknown) (unknown) with (units (unkno wn) date) unknown) Result panel 99 (unknown) (no date) (unknown) (unknown) Flu A (units (unkn own) NEGATIVE unknown) (unknown) (no date) (unknown) (unknown) Flu B (units (unkn own) NEGATIVE unknown) (unknown) (no date) (unknown) (unknown) Negative (units (unkn own) unknown) (unknown) (no date) (unknown) (unknown) Negative (units (unkn own) unknown) Result panel 100 (unknown) (no (unknown) (unknown) (no value) (units (unk nown) date) unknown) (unknown) (no (unknown) (unknown) (Efudex) lesions (units (unknown) date) ##0 unknown) (unknown) (no (unknown) (unknown) (Glucosamine (units (u nknown) date) Sulfate 2 unknown) (unknown) (no (unknown) (unknown) 0.3 mg SL Q5-15M (units (unknown) date) PRN (Reason: chest unknown) pain) Qty: 25 0RF (unknown) (no (unknown) (unknown) [id number] (units (unkno wn) date) unknown) (unknown) (no (unknown) (unknown) 09/23/22 09/23/22 (units (unknown) date) 09/23/22 unknown) Range/Units (unknown) (no (unknown) (unknown) 09/23/22 09/23/22 (units (unknown) date) Range/Units unknown) (unknown) (no (unknown) (unknown) 09/23/22 19:06 (units (unknown) date) unknown) (unknown) (no (unknown) (unknown) 09/23/22 19:42 (units (unknown) date) unknown) (unknown) (no (unknown) (unknown) 09/23/22 20:31 (units (unknown) date) unknown) (unknown) (no (unknown) (unknown) 09/23/22 (units (unkno wn) date) unknown) (unknown) (no (unknown) (unknown) 04/30/18 (units (unkno wn) date) unknown) (unknown) (no (unknown) (unknown) 1 carter Topical PRN (units (unknown) date) PRN (Reason: skin unknown) cancer lesions) Qty: 0 (unknown) (no (unknown) (unknown) 1 cap PO DAILY (units (unknown) date) Qty: 0 unknown) (unknown) (no (unknown) (unknown) 1 tab PO Q4-6H (units (unknown) date) PRN (Reason: pain) unknown) Qty: 20 0RF (unknown) (no (unknown) (unknown) 1 tab PO QDAY (units ( unknown) date) Qty: 0 unknown) (unknown) (no (unknown) (unknown) 1 tablet PO every (units (unknown) date) 4-6 hours as unknown) needed for pain (unknown) (no (unknown) (unknown) 10 mg PO QAM Qty: (units (unknown) date) 10 0RF unknown) (unknown) (no (unknown) (unknown) 19:00 09/23/22 (units (unknown) date) unknown) (unknown) (no (unknown) (unknown) 19:10 (units (unkno wn) date) unknown) (unknown) (no (unknown) (unknown) 19:42 19:42 19:42 (units (unknown) date) unknown) (unknown) (no (unknown) (unknown) 19:42 19:42 (units (un known) date) unknown) (unknown) (no (unknown) (unknown) 20 [...] (unknown) 500 (units (unkno wn) date) mg-chondroitin 400 unknown) mg capsule (unknown) (no (unknown) (unknown) 5mg every (units (unkn own) date) Saturday/2.5mg rest unknown) (unknown) (no (unknown) (unknown) 8 meq PO DAILY (units (unknown) date) Qty: 10 0RF unknown) (unknown) (no (unknown) (unknown) 8 rib fractures (units (unknown) date) and a right T6 and unknown) T7 transverse process fractures nondisplaced. (unknown) (no (unknown) (unknown) 87-year-old woman (units (unknown) date) with a history of unknown) congestive heart failure, atrial (unknown) (no (unknown) (unknown) A trace (units (unkno wn) date) pneumothorax and unknown) trace right pleural effusion. Was observed in the (unknown) (no (unknown) (unknown) ALT (<50) IU/L (units (unknown) date) unknown) (unknown) (no (unknown) (unknown) ALT 21 (<50) IU/L (units (unknown) date) unknown) (unknown) (no (unknown) (unknown) AST (17-59) IU/L (units (unknown) date) unknown) (unknown) (no (unknown) (unknown) AST 28 (17-59) (units (unknown) date) IU/L unknown) (unknown) (no (unknown) (unknown) Abdomen: Soft, (units (unknown) date) nontender, good unknown) bowel tones, no flank pain (unknown) (no (unknown) (unknown) Admin: 09/23/22 (units (unknown) date) 21:10 Dose: 112 unknown) mls/hr (unknown) (no (unknown) (unknown) Afib (units (unkno wn) date) unknown) (unknown) (no (unknown) (unknown) Age/Sex: 87 / M (units (unknown) date) unknown) (unknown) (no (unknown) (unknown) Albumin (3.5-5.0) (units (unknown) date) g/dL unknown) (unknown) (no (unknown) (unknown) Albumin 4.0 (units (un known) date) (3.5-5.0) g/dL unknown) (unknown) (no (unknown) (unknown) Albumin/Globulin (units (unknown) date) Ratio (1.0-2.8) unknown) (unknown) (no (unknown) (unknown) Albumin/Globulin (units (unknown) date) Ratio 1.2 unknown) (1.0-2.8) (unknown) (no (unknown) (unknown) Alcohol type: (units ( unknown) date) hard liquor unknown) (unknown) (no (unknown) (unknown) Alkaline (units (unkno wn) date) Phosphatase unknown) (38-126) U/L (unknown) (no (unknown) (unknown) Alkaline (units (unkno wn) date) Phosphatase 141 H unknown) (38-126) U/L (unknown) (no (unknown) (unknown) Allergies (units (unkn own) date) unknown) (unknown) (no (unknown) (unknown) Allergy/AdvReac (units (unknown) date) Type Severity unknown) Reaction Status Date / Time (unknown) (no (unknown) (unknown) Atrial (units (unkno wn) date) fibrillation at a unknown) rate of 79. Single paced beat appreciated, no acute (unknown) (no (unknown) (unknown) BCC (basal cell (units (unknown) date) carcinoma of skin) unknown) (unknown) (no (unknown) (unknown) BNP slightly (units (u nknown) date) elevated unknown) (unknown) (no (unknown) (unknown) BUN (9-20) mg/dL (units (unknown) date) unknown) (unknown) (no (unknown) (unknown) BUN 25 H (9-20) (units (unknown) date) mg/dL unknown) (unknown) (no (unknown) (unknown) BUN/Creatinine (units (unknown) date) Ratio (6-22) unknown) (unknown) (no (unknown) (unknown) BUN/Creatinine (units (unknown) date) Ratio 19.4 (6-22) unknown) (unknown) (no (unknown) (unknown) Baso # (Auto) (units ( unknown) date) (0-100) /uL unknown) (unknown) (no (unknown) (unknown) Baso # (Auto) 100 (units (unknown) date) (0-100) /uL unknown) (unknown) (no (unknown) (unknown) Baso % (Auto) (units ( unknown) date) (0-2) % unknown) (unknown) (no (unknown) (unknown) Baso % (Auto) 1.1 (units (unknown) date) (0-2) % unknown) (unknown) (no (unknown) (unknown) Bilateral lower (units (unknown) date) extremity edema unknown) (unknown) (no (unknown) (unknown) Blood Pressure (units (unknown) date) 133/73 09/23/22 unknown) 19:00 (unknown) (no (unknown) (unknown) Blood Pressure (units (unknown) date) 133/73 unknown) (unknown) (no (unknown) (unknown) Bones and chest (units (unknown) date) wall: No unknown) suspicious bony lesions. Overlying soft tissues (unknown) (no (unknown) (unknown) CBC is reviewed. (units (unknown) date) No leukocytosis. unknown) Slight decrease in H+H to 12.5 and 36.7. (unknown) (no (unknown) (unknown) CC: Severe apneic (units (unknown) date) spells any time he unknown) falls asleep. 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) unknown) (unknown) (no (unknown) (unknown) Calcium (units (unkno wn) date) (8.4-10.2) mg/dL unknown) (unknown) (no (unknown) (unknown) Calcium 8.9 (units (un known) date) (8.4-10.2) mg/dL unknown) (unknown) (no (unknown) (unknown) Capsule (units (unkno wn) date) unknown) (unknown) (no (unknown) (unknown) Carbon Dioxide (units (unknown) date) (22-32) mmol/L unknown) (unknown) (no (unknown) (unknown) Carbon Dioxide 27 (units (unknown) date) (22-32) mmol/L unknown) (unknown) (no (unknown) (unknown) Cardiac: Regular (units (unknown) date) rate and rhythm no unknown) murmurs no bruits (unknown) (no (unknown) (unknown) Chest x-ray: (units (u nknown) date) unknown) (unknown) (no (unknown) (unknown) Chief complaint: (units (unknown) date) Shortness of unknown) Breath/Dyspnea (unknown) (no (unknown) (unknown) Chloride (98-107) (units (unknown) date) mmol/L unknown) (unknown) (no (unknown) (unknown) Chloride 94 L (units ( unknown) date) (98-107) mmol/L unknown) (unknown) (no (unknown) (unknown) Closed (units (unkno wn) date) nondisplaced unknown) fracture of pelvis (unknown) (no (unknown) (unknown) Comparison is (units ( unknown) date) January of 2021 unknown) (unknown) (no (unknown) (unknown) Complete Blood (units (unknown) date) Count AUTO DIFF unknown) Stat (unknown) (no (unknown) (unknown) Complicating (units (u nknown) date) co-morbidities: unknown) Recent fall down stairs with rib fractures and (unknown) (no (unknown) (unknown) Comprehensive (units ( unknown) date) Metabolic Panel unknown) Stat (unknown) (no (unknown) (unknown) Consultations: (units (unknown) date) unknown) (unknown) (no (unknown) (unknown) Corroborating (units ( unknown) date) data: unknown) (unknown) (no (unknown) (unknown) Course (units (unkno wn) date) unknown) (unknown) (no (unknown) (unknown) Covid-19 + FLU (units (unknown) date) A/B + RSV - PCR unknown) Stat (unknown) (no (unknown) (unknown) Creatinine (units (unk nown) date) (0.66-1.25) mg/dL unknown) (unknown) (no (unknown) (unknown) Creatinine 1.29 H (units (unknown) date) (0.66-1.25) mg/dL unknown) (unknown) (no (unknown) (unknown) : 1935 (units (unknown) date) Acct:[id number] unknown) (unknown) (no (unknown) (unknown) Data collected (units (unknown) date) from: patient, unknown) (unknown) (no (unknown) (unknown) Date of Service: (units (unknown) date) 09/23/22 unknown) (unknown) (no (unknown) (unknown) Departure (units (unkn own) date) unknown) (unknown) (no (unknown) (unknown) Diabetes (units (unkno wn) date) unknown) (unknown) (no (unknown) (unknown) Dictated by: (units (u nknown) date) Adelina Romano M.D. unknown) on 09/23/2022 at 19:27 (unknown) (no (unknown) (unknown) Differential (units (u nknown) date) considered: unknown) Hemothorax, pneumothorax, complications from recent (unknown) (no (unknown) (unknown) Discharge Plan (units (unknown) date) unknown) (unknown) (no (unknown) (unknown) Discontinued (units (u nknown) date) Medications unknown) (unknown) (no (unknown) (unknown) Discussion: (units (un known) date) 87-year-old unknown) gentleman who complains of severe apnea any time he (unknown) (no (unknown) (unknown) Disposition: see (units (unknown) date) below, along with unknown) detailed discharge instructions that have (unknown) (no (unknown) (unknown) Documented By: BS (units (unknown) date) unknown) (unknown) (no (unknown) (unknown) ECG Data (units (unkno wn) date) unknown) (unknown) (no (unknown) (unknown) ED Orders (units (unkn own) date) unknown) (unknown) (no (unknown) (unknown) EKG-12 Lead Stat (units (unknown) date) unknown) (unknown) (no (unknown) (unknown) ER Physician: (units ( unknown) date) Rosa Maria Frost unknown) (unknown) (no (unknown) (unknown) Easy bruisability (units (unknown) date) unknown) (unknown) (no (unknown) (unknown) Emergency Report (units (unknown) date) unknown) (unknown) (no (unknown) (unknown) Eos # (Auto) (units (u nknown) date) (0-450) /uL unknown) (unknown) (no (unknown) (unknown) Eos # (Auto) 100 (units (unknown) date) (0-450) /uL unknown) (unknown) (no (unknown) (unknown) Eos % (Auto) (units (u nknown) date) (2-4) % unknown) (unknown) (no (unknown) (unknown) Eos % (Auto) 1.9 (units (unknown) date) L (2-4) % unknown) (unknown) (no (unknown) (unknown) Estimated GFR (units ( unknown) date) (>60) mL/min unknown) (unknown) (no (unknown) (unknown) Estimated GFR 54 (units (unknown) date) L (>60) mL/min unknown) (unknown) (no (unknown) (unknown) Exam documented (units (unknown) date) above, pertinent unknown) findings include: He is alert and appropriate, (unknown) (no (unknown) (unknown) Exam (units (unkno wn) date) unknown) (unknown) (no (unknown) (unknown) Extremities: No (units (unknown) date) trauma, well unknown) perfused, 1+ edema bilaterally (unknown) (no (unknown) (unknown) FINDINGS: (units (unkn own) date) unknown) (unknown) (no (unknown) (unknown) Fragile skin (units (u nknown) date) unknown) (unknown) (no (unknown) (unknown) Full and (units (unkno wn) date) symmetrical air unknown) movement (unknown) (no (unknown) (unknown) Furosemide 60 mg/ (units (unknown) date) Sodium (Chloride) unknown) 56 mls @ 112 mls/hr IV NOW ONE (unknown) (no (unknown) (unknown) GERD (units (unkno wn) date) (gastroesophageal unknown) reflux disease) (unknown) (no (unknown) (unknown) General (units (unkno wn) date) unknown) (unknown) (no (unknown) (unknown) General: Healthy (units (unknown) date) appearing, in no unknown) acute distress. Able to give a complete and (unknown) (no (unknown) (unknown) Globulin (units (unkno wn) date) (1.7-4.1) g/dL unknown) (unknown) (no (unknown) (unknown) Globulin 3.3 (units (u nknown) date) (1.7-4.1) g/dL unknown) (unknown) (no (unknown) (unknown) Glucose (80-110) (units (unknown) date) mg/dL unknown) (unknown) (no (unknown) (unknown) Glucose 124 H (units ( unknown) date) (80-110) mg/dL unknown) (unknown) (no (unknown) (unknown) HEENT: Moist (units (u nknown) date) mucous membranes, unknown) normal sclera with reactive pupils, skin cancer (unknown) (no (unknown) (unknown) HPI - Female (units (u nknown) date) Genitourinary unknown) (unknown) (no (unknown) (unknown) HPI Narrative: (units (unknown) date) unknown) (unknown) (no (unknown) (unknown) Hct (41-53) % (units ( unknown) date) unknown) (unknown) (no (unknown) (unknown) Hct 36.7 L (units (unk nown) date) (41-53) % unknown) (unknown) (no (unknown) (unknown) 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 with unknown) no acute findings (unknown) (no (unknown) (unknown) Hgb (13.5-17.5) (units (unknown) date) g/dL unknown) (unknown) (no (unknown) (unknown) Hgb 12.5 L (units (unk nown) date) (13.5-17.5) g/dL unknown) (unknown) (no (unknown) (unknown) History of (units (unk nown) date) Present Illness unknown) (unknown) (no (unknown) (unknown) Home Medications (units (unknown) date) unknown) (unknown) (no (unknown) (unknown) Hx of arthroscopy (units (unknown) date) of shoulder unknown) (unknown) (no (unknown) (unknown) Hx of hernia (units (u nknown) date) repair unknown) (unknown) (no (unknown) (unknown) Hx of (units (unkno wn) date) tonsillectomy unknown) (unknown) (no (unknown) (unknown) IMPRESSION: No (units (unknown) date) acute process. unknown) (unknown) (no (unknown) (unknown) INR (0.9-1.3) (units ( unknown) date) unknown) (unknown) (no (unknown) (unknown) INR 1.6 H (units (unkn own) date) (0.9-1.3) unknown) (unknown) (no (unknown) (unknown) INR is slightly (units (unknown) date) subtherapeutic at unknown) 1.6 (unknown) (no (unknown) (unknown) Imaging Data (units (u nknown) date) unknown) (unknown) (no (unknown) (unknown) Imaging studies (units (unknown) date) independently unknown) reviewed: Chest x-ray shows no significant (unknown) (no (unknown) (unknown) Independently (units ( unknown) date) reviewed EKG as unknown) above (unknown) (no (unknown) (unknown) Influenza A (units (un known) date) (RT-PCR) unknown) (NEGATIVE) (unknown) (no (unknown) (unknown) Influenza A (units (un known) date) (RT-PCR) Flu a unknown) negative (NEGATIVE) (unknown) (no (unknown) (unknown) Influenza B (units (un known) date) (RT-PCR) unknown) (NEGATIVE) (unknown) (no (unknown) (unknown) Influenza B (units (un known) date) (RT-PCR) Flu b unknown) negative (NEGATIVE) (unknown) (no (unknown) (unknown) Initial Vital (units ( unknown) date) Signs unknown) (unknown) (no (unknown) (unknown) Initial Vital (units ( unknown) date) Signs: unknown) (unknown) (no (unknown) (unknown) Interpretation: (units (unknown) date) unknown) (unknown) (no (unknown) (unknown) [facility] (units (unknown) date) [address] unknown) [place] [address] (unknown) (no (unknown) (unknown) KCL-Chondroitin) (units (unknown) date) unknown) (unknown) (no (unknown) (unknown) Lauri Vasquez MD (units (unknown) date) [Primary Care unknown) Provider] (unknown) (no (unknown) (unknown) Lab Data (units (unkno wn) date) unknown) (unknown) (no (unknown) (unknown) Lab Results (units (un known) date) unknown) (unknown) (no (unknown) (unknown) Lab Test results (units (unknown) date) independently unknown) reviewed as above. Pertinent findings: (unknown) (no (unknown) (unknown) Labs: (units (unkno wn) date) unknown) (unknown) (no (unknown) (unknown) Lactate (0.7-2.1) (units (unknown) date) mmol/L unknown) (unknown) (no (unknown) (unknown) Lactate (Lactic (units (unknown) date) Acid) Stat unknown) (unknown) (no (unknown) (unknown) Lactate 1.6 (units (un known) date) (0.7-2.1) mmol/L unknown) (unknown) (no (unknown) (unknown) Last Infusion: (units (unknown) date) 09/23/22 21:48 unknown) Dose: 0 mls/hr (unknown) (no (unknown) (unknown) Left foot drop (units (unknown) date) unknown) (unknown) (no (unknown) (unknown) Lungs and pleura: (units (unknown) date) Lungs are clear. unknown) No pleural effusions or pneumothorax. (unknown) (no (unknown) (unknown) Lymph # (Auto) (units (unknown) date) (4139-8161) /uL unknown) (unknown) (no (unknown) (unknown) Lymph # (Auto) (units (unknown) date) 900 L (1115-4803) unknown) /uL (unknown) (no (unknown) (unknown) Lymph % (Auto) (units (unknown) date) (25-40) % unknown) (unknown) (no (unknown) (unknown) Lymph % (Auto) (units (unknown) date) 13.3 L (25-40) % unknown) (unknown) (no (unknown) (unknown) MCH (26-34) PG (units (unknown) date) unknown) (unknown) (no (unknown) (unknown) MCH 30.9 (26-34) (units (unknown) date) PG unknown) (unknown) (no (unknown) (unknown) MCHC (30-36) % (units (unknown) date) unknown) (unknown) (no (unknown) (unknown) MCHC 33.9 (30-36) (units (unknown) date) % unknown) (unknown) (no (unknown) (unknown) MCV (80-100) fL (units (unknown) date) unknown) (unknown) (no (unknown) (unknown) MCV 91.1 (80-100) (units (unknown) date) fL unknown) (unknown) (no (unknown) (unknown) MDM - Female (units (u nknown) date) Genitourinary unknown) (unknown) (no (unknown) (unknown) MDM Narrative (units ( unknown) date) unknown) (unknown) (no (unknown) (unknown) Measure peak (units (u nknown) date) expiratory flow unknown) ONCE (unknown) (no (unknown) (unknown) Mediastinum: (units (u nknown) date) Mediastinal unknown) contours appear normal. Heart size is normal. (unknown) (no (unknown) (unknown) Medical History (units (unknown) date) (Reviewed 09/14/22 unknown) @ 01:47 by Fito Pagan DO) (unknown) (no (unknown) (unknown) Medical decision (units (unknown) date) making narrative: unknown) (unknown) (no (unknown) (unknown) Medical records (units (unknown) date) reviewed: Prior unknown) sleep visits, pulmonary function tests, (unknown) (no (unknown) (unknown) Medication (units (unk nown) date) Instructions unknown) Recorded Confirmed (unknown) (no (unknown) (unknown) Medication (units (unk nown) date) Instructions unknown) Recorded (unknown) (no (unknown) (unknown) Mixed (units (unkno wn) date) hyperlipidemia unknown) (unknown) (no (unknown) (unknown) Gaines # (Auto) (units ( unknown) date) (0-900) /uL unknown) (unknown) (no (unknown) (unknown) Gaines # (Auto) 700 (units (unknown) date) (0-900) /uL unknown) (unknown) (no (unknown) (unknown) Gaines % (Auto) (units ( unknown) date) (3-14) % unknown) (unknown) (no (unknown) (unknown) Gaines % (Auto) (units ( unknown) date) 10.5 (3-14) % unknown) (unknown) (no (unknown) (unknown) NT-Pro-B (units (unkno wn) date) Natriuret Pep unknown) (<450) pg/mL (unknown) (no (unknown) (unknown) NT-Pro-B (units (unkno wn) date) Natriuret Pep 2510 unknown) H (<450) pg/mL (unknown) (no (unknown) (unknown) NT-proBNP (units (unkn own) date) (BNP-Adult 18+) unknown) Stat (unknown) (no (unknown) (unknown) Narrative: (units (unk nown) date) unknown) (unknown) (no (unknown) (unknown) Neck: No JVD, (units ( unknown) date) supple unknown) (unknown) (no (unknown) (unknown) Neurologic: (units (un known) date) Grossly unknown) neurologically intact with no obvious asymmetries or (unknown) (no (unknown) (unknown) Neut # (Auto) (units ( unknown) date) (8960-4686) /uL unknown) (unknown) (no (unknown) (unknown) Neut # (Auto) (units ( unknown) date) 5100 (1940-9607) unknown) /uL (unknown) (no (unknown) (unknown) Neut % (Auto) (units ( unknown) date) (50-75) % unknown) (unknown) (no (unknown) (unknown) Neut % (Auto) (units ( unknown) date) 73.2 (50-75) % unknown) (unknown) (no (unknown) (unknown) No Action (units (unkn own) date) unknown) (unknown) (no (unknown) (unknown) Numbness (units (unkno wn) date) unknown) (unknown) (no (unknown) (unknown) Ordered: (units (unkno wn) date) unknown) (unknown) (no (unknown) (unknown) Orders (units (unkno wn) date) unknown) (unknown) (no (unknown) (unknown) Oxygen Delivery (units (unknown) date) Method 09/23/22 unknown) 19:00 (unknown) (no (unknown) (unknown) Oxygen Delivery (units (unknown) date) Method Room Air unknown) (unknown) (no (unknown) (unknown) PT (10.1-12.7) (units (unknown) date) SECONDS unknown) (unknown) (no (unknown) (unknown) PT 18.7 H (units (unkn own) date) (10.1-12.7) unknown) SECONDS (unknown) (no (unknown) (unknown) Pacemaker (units (unkn own) date) unknown) (unknown) (no (unknown) (unknown) Patient History (units (unknown) date) unknown) (unknown) (no (unknown) (unknown) Patient: (units (unkno wn) date) White,Dallin A unknown) MR#: [id number] (unknown) (no (unknown) (unknown) Penicillins (units (un known) date) [PENICILLINS] unknown) Allergy Mild Rash Verified 09/23/22 19:56 (unknown) (no (unknown) (unknown) Plt Count (units (unkn own) date) (150-400) X103/uL unknown) (unknown) (no (unknown) (unknown) Plt Count 249 (units ( unknown) date) (150-400) X103/uL unknown) (unknown) (no (unknown) (unknown) Pneumonia (units (unkn own) date) unknown) (unknown) (no (unknown) (unknown) Potassium (units (unkn own) date) (3.4-5.1) mmol/L unknown) (unknown) (no (unknown) (unknown) Potassium 3.9 (units ( unknown) date) (3.4-5.1) mmol/L unknown) (unknown) (no (unknown) (unknown) Prescriptions: (units (unknown) date) unknown) (unknown) (no (unknown) (unknown) Previous Rx's (units ( unknown) date) unknown) (unknown) (no (unknown) (unknown) Prothrombin Time (units (unknown) date) INR Stat unknown) (unknown) (no (unknown) (unknown) Psych: (units (unkno wn) date) Cooperative, unknown) appropriate insight and affect (unknown) (no (unknown) (unknown) Pulse Oximetry 97 (units (unknown) date) 09/23/22 19:00 unknown) (unknown) (no (unknown) (unknown) Pulse Oximetry 97 (units (unknown) date) unknown) (unknown) (no (unknown) (unknown) Pulse Rate 73 (units ( unknown) date) 09/23/22 19:00 unknown) (unknown) (no (unknown) (unknown) Pulse Rate 73 (units ( unknown) date) unknown) (unknown) (no (unknown) (unknown) RBC (4.5-5.9) (units ( unknown) date) X106/uL unknown) (unknown) (no (unknown) (unknown) RBC 4.03 L (units (unk nown) date) (4.5-5.9) X106/uL unknown) (unknown) (no (unknown) (unknown) RDW (11.6-14.8) % (units (unknown) date) unknown) (unknown) (no (unknown) (unknown) RDW 13.9 (units (unkno wn) date) (11.6-14.8) % unknown) (unknown) (no (unknown) (unknown) RSV (PCR) (units (unkn own) date) (Negative) unknown) (unknown) (no (unknown) (unknown) RSV (PCR) (units (unkn own) date) Negative unknown) (Negative) (unknown) (no (unknown) (unknown) RT Consult Eval (units (unknown) date) and Treat NOW unknown) (unknown) (no (unknown) (unknown) Radiologist's (units ( unknown) date) Impression: unknown) (unknown) (no (unknown) (unknown) Re-evaluations: (units (unknown) date) After reviewing unknown) initial blood work, discussed findings with (unknown) (no (unknown) (unknown) Referrals: (units (unk nown) date) unknown) (unknown) (no (unknown) (unknown) Related Data (units (u nknown) date) unknown) (unknown) (no (unknown) (unknown) Remainder of (units (u nknown) date) complete review of unknown) systems is otherwise unremarkable except for (unknown) (no (unknown) (unknown) Respiratory Rate (units (unknown) date) 20 09/23/22 19:00 unknown) (unknown) (no (unknown) (unknown) Respiratory Rate (units (unknown) date) 20 unknown) (unknown) (no (unknown) (unknown) Respiratory: (units (u nknown) date) Lungs are clear to unknown) auscultation, no wheezing no rales no rhonchi. (unknown) (no (unknown) (unknown) Review of Systems (units (unknown) date) unknown) (unknown) (no (unknown) (unknown) Rx Instructions: (units (unknown) date) unknown) (unknown) (no (unknown) (unknown) SARS-CoV-2 (PCR) (units (unknown) date) (Negative) unknown) (unknown) (no (unknown) (unknown) SARS-CoV-2 (PCR) (units (unknown) date) Negative unknown) (Negative) (unknown) (no (unknown) (unknown) Scoliosis (units (unkn own) date) unknown) (unknown) (no (unknown) (unknown) Signed By: (units (unk nown) date) unknown) (unknown) (no (unknown) (unknown) Skin: Warm and (units (unknown) date) dry, no rashes unknown) (unknown) (no (unknown) (unknown) Sleep disorder (units (unknown) date) unknown) (unknown) (no (unknown) (unknown) Social (units (unkno wn) date) determinants of unknown) health that may influence the patients condition: Age, (unknown) (no (unknown) (unknown) Sodium (137-145) (units (unknown) date) mmol/L unknown) (unknown) (no (unknown) (unknown) Sodium 134 L (units (u nknown) date) (137-145) mmol/L unknown) (unknown) (no (unknown) (unknown) Stated complaint: (units (unknown) date) SOB/Blood Ox unknown) 99%/Passed Out (unknown) (no (unknown) (unknown) Status post (units (un known) date) bilateral cataract unknown) extraction (unknown) (no (unknown) (unknown) Stop: 09/23/22 (units (unknown) date) 20:32 unknown) (unknown) (no (unknown) (unknown) Substance Use (units ( unknown) date) Type: does not use unknown) (unknown) (no (unknown) (unknown) Surgical History (units (unknown) date) (Reviewed 02/21/21 unknown) @ 10:52 by Johnson Patel MD) (unknown) (no (unknown) (unknown) Surgical changes (units (unknown) date) and devices: unknown) Left-sided pacer (unknown) (no (unknown) (unknown) Take for pitting (units (unknown) date) swollen legs only unknown) with shortness of breath (unknown) (no (unknown) (unknown) Take only when (units (unknown) date) you are taking the unknown) lasix (unknown) (no (unknown) (unknown) Temperature 98 F (units (unknown) date) unknown) (unknown) (no (unknown) (unknown) Time Seen by (units (u nknown) date) Provider: 09/23/22 unknown) 19:29 (unknown) (no (unknown) (unknown) Total Bilirubin (units (unknown) date) (0.2-1.3) mg/dL unknown) (unknown) (no (unknown) (unknown) Total Bilirubin (units (unknown) date) 1.1 (0.2-1.3) unknown) mg/dL (unknown) (no (unknown) (unknown) Total Protein (units ( unknown) date) (6.3-8.2) g/dL unknown) (unknown) (no (unknown) (unknown) Total Protein 7.3 (units (unknown) date) (6.3-8.2) g/dL unknown) (unknown) (no (unknown) (unknown) Treatments: (units (un known) date) unknown) (unknown) (no (unknown) (unknown) Troponin I < (units (u nknown) date) 0.012 (0.01-0.034) unknown) ng/mL (unknown) (no (unknown) (unknown) Troponin I (units (unk nown) date) (0.01-0.034) ng/mL unknown) (unknown) (no (unknown) (unknown) Troponin I Stat (units (unknown) date) unknown) (unknown) (no (unknown) (unknown) Troponin (units (unkno wn) date) unremarkable unknown) (unknown) (no (unknown) (unknown) Vital Signs - 8 (units (unknown) date) hr unknown) (unknown) (no (unknown) (unknown) Vital Signs (units (un known) date) unknown) (unknown) (no (unknown) (unknown) Vital signs: (units (u nknown) date) unknown) (unknown) (no (unknown) (unknown) WBC (4.5-11.0) (units (unknown) date) X103/uL unknown) (unknown) (no (unknown) (unknown) WBC 6.9 (units (unkno wn) date) (4.5-11.0) X103/uL unknown) (unknown) (no (unknown) (unknown) XR chest 1V Stat (units (unknown) date) unknown) (unknown) (no (unknown) (unknown) [Embedded Image (units (unknown) date) Not Available] unknown) (unknown) (no (unknown) (unknown) abnormalities (units ( unknown) date) unknown) (unknown) (no (unknown) (unknown) acute coronary (units (unknown) date) syndrome. Patient unknown) is agreeable to workup (unknown) (no (unknown) (unknown) additional (units (unk nown) date) outpatient follow unknown) up (unknown) (no (unknown) (unknown) afraid to go to (units (unknown) date) sleep. He unknown) describes no recent change to weight has continued to (unknown) (no (unknown) (unknown) alcohol intake (units (unknown) date) frequency: 0-2 unknown) drinks per day (unknown) (no (unknown) (unknown) also like to do a (units (unknown) date) CT scan of the unknown) chest to look for pulmonary embolism, as well (unknown) (no (unknown) (unknown) and (units (unkno wn) date) anticoagulated on unknown) warfarin. (unknown) (no (unknown) (unknown) and has since (units ( unknown) date) pick them up to unknown) but does not use them much. Main concern at this (unknown) (no (unknown) (unknown) appear (units (unkno wn) date) unknown) (unknown) (no (unknown) (unknown) as review trauma (units (unknown) date) findings. His pro unknown) BNP is elevated suggesting slightly (unknown) (no (unknown) (unknown) been reviewed (units ( unknown) date) with patient as unknown) well as indications for ED re-evaluation and (unknown) (no (unknown) (unknown) but is not (units (unk nown) date) entirely certain. unknown) Would like to repeat a CT scan to make sure there (unknown) (no (unknown) (unknown) capsule,extended (units (unknown) date) release unknown) (unknown) (no (unknown) (unknown) chest tightness (units (unknown) date) with Shortness of unknown) breath (unknown) (no (unknown) (unknown) coherent history. (units (unknown) date) Well-nourished unknown) well-developed (unknown) (no (unknown) (unknown) criteria for (units (u nknown) date) hospitalization at unknown) this time. Will ask him to follow-up with his (unknown) (no (unknown) (unknown) day that cause (units (unknown) date) him to wake up in unknown) a panic. Frequently that panic and anxiety (unknown) (no (unknown) (unknown) difficulty (units (unk nown) date) accessing unknown) healthcare (unknown) (no (unknown) (unknown) disease. 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 (unknown) (no (unknown) (unknown) dramatically (units (u nknown) date) worsened over the unknown) last 3 months (unknown) (no (unknown) (unknown) edema minimal (units ( unknown) date) tenderness related unknown) to the known rib and transverse process (unknown) (no (unknown) (unknown) emergency (units (unkn own) date) department with unknown) repeat x-ray showing the pneumothorax was not (unknown) (no (unknown) (unknown) exacerbated by (units (unknown) date) pain and recent unknown) fall, infectious etiology, central sleep apnea, (unknown) (no (unknown) (unknown) exacerbation of a (units (unknown) date) chronic problem unknown) with uncertain prognosis and potential for (unknown) (no (unknown) (unknown) expanding he was (units (unknown) date) discharged home. unknown) He presented to [facility] (unknown) (no (unknown) (unknown) failure and I (units ( unknown) date) will have him unknown) increase his Lasix however he is not meeting any (unknown) (no (unknown) (unknown) fall, acute (units (un known) date) coronary syndrome, unknown) congestive heart failure, severe sleep apnea (unknown) (no (unknown) (unknown) falls asleep. He (units (unknown) date) does have mild unknown) exacerbation of his chronic congestive heart (unknown) (no (unknown) (unknown) fibrillation, (units ( unknown) date) prior stroke, unknown) diabetes, hyperlipidemia with sleep apnea who has (unknown) (no (unknown) (unknown) fluorouracil 5 % (units (unknown) date) topical cream 1 unknown) carter topical PRN PRN skin cancer 04/29/17 (unknown) (no (unknown) (unknown) fluorouracil (units (u nknown) date) [Efudex] 5 % cream unknown) (unknown) (no (unknown) (unknown) fractures are (units ( unknown) date) identified unknown) findings consistent with chronic interstitial lung (unknown) (no (unknown) (unknown) fractures. Rate (units (unknown) date) controlled atrial unknown) fibrillation and no jugular venous distention (unknown) (no (unknown) (unknown) furosemide 20 mg [...] ##0 04/29/17 04/30/18 (unknown) (no (unknown) (unknown) had not picked up (units (unknown) date) his pain unknown) medications at that time. Was prescribed oxycodone (unknown) (no (unknown) (unknown) heart failure. (units (unknown) date) Complaints of unknown) significant exertional dyspnea that has (unknown) (no (unknown) (unknown) hydrocodone 5 (units ( unknown) date) mg-acetaminophen unknown) 325 1 tab PO Q4-6H PRN pain #20 tabs 05/12/18 (unknown) (no (unknown) (unknown) hydrocodone-aceta (units (unknown) date) minophen [[place]] unknown) 5-325 mg tablet (unknown) (no (unknown) (unknown) intracranial (units (u nknown) date) hemorrhage unknown) affecting breathing issues related to recent fall (unknown) (no (unknown) (unknown) involving the (units ( unknown) date) 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 (unknown) (no (unknown) (unknown) is not subdural (units (unknown) date) that might be unknown) causing worsening central sleep apnea and would (unknown) (no (unknown) (unknown) ischemic changes (units (unknown) date) unknown) (unknown) (no (unknown) (unknown) melatonin 5 MG (units (unknown) date) tablet unknown) (unknown) (no (unknown) (unknown) melatonin 5 mg (units (unknown) date) tablet 5 mg PO QHS unknown) PRN Sleep 04/30/18 05/12/18 (unknown) (no (unknown) (unknown) metoprolol (units (unk nown) date) succinate 50 mg 50 unknown) mg PO BEDTIME 04/30/18 02/21/21 (unknown) (no (unknown) (unknown) metoprolol (units (unk nown) date) succinate 50 mg unknown) Tablet Extended Release 24 Hr (unknown) (no (unknown) (unknown) mg tablet ([place]) (units (unknown) date) unknown) (unknown) (no (unknown) (unknown) multivitamin (units (u nknown) date) (Multiple Vitamins unknown) 1 tab PO QDAY ##0 04/29/17 04/30/18 (unknown) (no (unknown) (unknown) multivitamin (units (u nknown) date) [Multiple unknown) Vitamins] 1 EACH tablet (unknown) (no (unknown) (unknown) never been able (units (unknown) date) to complete a full unknown) workup to finally be prescribed CPAP machine (unknown) (no (unknown) (unknown) nitroglycerin 0.3 (units (unknown) date) mg sublingual 0.3 unknown) mg sublingual Q5-15M PRN chest 10/01/19 (unknown) (no (unknown) (unknown) nitroglycerin 0.3 (units (unknown) date) mg tablet, unknown) sublingual (unknown) (no (unknown) (unknown) not having overt (units (unknown) date) palpitations but unknown) does note that he is in atrial fibrillation (unknown) (no (unknown) (unknown) omeprazole 20 mg (units (unknown) date) Tablet,Delayed unknown) Release (Dr/Ec) (unknown) (no (unknown) (unknown) omeprazole 20 mg (units (unknown) date) tablet,delayed 20 unknown) mg PO BID 04/30/18 02/21/21 (unknown) (no (unknown) (unknown) on the 05/02 (units (un known) date) complaining of unknown) shortness of breath particularly with exertion. He (unknown) (no (unknown) (unknown) orthopedic (units (unk nown) date) surgery for his unknown) chronic back pain as well as prior ER notes related (unknown) (no (unknown) (unknown) patient. He (units (un known) date) believes there was unknown) a CT scan done with a fall a couple of weeks ago (unknown) (no (unknown) (unknown) potassium (units (unkn own) date) chloride 8 mEq 8 unknown) meq PO DAILY #10 caps 10/01/19 (unknown) (no (unknown) (unknown) potassium (units (unkn own) date) chloride 8 mEq unknown) capsule, extended release (unknown) (no (unknown) (unknown) presents (units (unkno wn) date) complaining of unknown) severe apneic episodes when he falls asleep during the (unknown) (no (unknown) (unknown) primary care (units (u nknown) date) doctor regarding unknown) his sleep disorder and need for CPAP. (unknown) (no (unknown) (unknown) pulmonary (units (unkn own) date) arteries unknown) suggestive of pulmonary artery hypertension. No acute rib (unknown) (no (unknown) (unknown) release (units (unkno wn) date) unknown) (unknown) (no (unknown) (unknown) [facility] (units (unknown) date) General where unknown) x-rays revealed displaced right posterior 6 7 and (unknown) (no (unknown) (unknown) significant (units (un known) date) systemic symptoms unknown) (unknown) (no (unknown) (unknown) speaking in full (units (unknown) date) sentences, no unknown) wheezing, no crackles minimal lower extremity (unknown) (no (unknown) (unknown) sulfite [SULFITE] (units (unknown) date) Allergy Severe unknown) from foods Verified 09/23/22 19:56 (unknown) (no (unknown) (unknown) tablet pain #25 (units (unknown) date) tabs unknown) (unknown) (no (unknown) (unknown) tablet) (units (unkno wn) date) unknown) (unknown) (no (unknown) (unknown) tablet,extended (units (unknown) date) release 24 hr unknown) (unknown) (no (unknown) (unknown) that included in (units (unknown) date) the HPI. unknown) (unknown) (no (unknown) (unknown) time is that any (units (unknown) date) time he falls unknown) asleep he stops breathing wakes up panic and is (unknown) (no (unknown) (unknown) to fall on (units (unk nown) date) September 12 unknown) (unknown) (no (unknown) (unknown) transverse (units (unk nown) date) process fractures unknown) in the thorax, recent pneumothorax. Congestive (unknown) (no (unknown) (unknown) unremarkable. (units ( unknown) date) unknown) (unknown) (no (unknown) (unknown) until response; (units (unknown) date) do not exceed 3 unknown) doses per episode, take for chest pain and or (unknown) (no (unknown) (unknown) use his (units (unkno wn) date) prescribed 60 mg unknown) of Lasix daily. No fevers no particular cough. He is (unknown) (no (unknown) (unknown) warfarin 3 mg (units ( unknown) date) tablet (Coumadin) unknown) 5 mg PO SEEINSTR 04/30/18 02/21/21 (unknown) (no (unknown) (unknown) warfarin (units (unkno wn) date) [Coumadin] 3 MG unknown) tablet (unknown) (no (unknown) (unknown) will last for a (units (unknown) date) couple of days. He unknown) fell down the stairs on September 12 was (unknown) (no (unknown) (unknown) worsening (units (unkn own) date) congestive heart unknown) failure with negative troponin suggesting lack of Result panel 101 (unknown) (no (unknown) (unknown) (no value) (units (unk nown) date) unknown) (unknown) (no (unknown) (unknown) <Electronically (units (unknown) date) signed by [facility] unknown) MD Santosh> (unknown) (no (unknown) (unknown) (Efudex) lesions (units (unknown) date) ##0 unknown) (unknown) (no (unknown) (unknown) (Glucosamine (units (u nknown) date) Sulfate 2 unknown) (unknown) (no (unknown) (unknown) 0.3 mg SL Q5-15M (units (unknown) date) PRN (Reason: chest unknown) pain) Qty: 25 0RF (unknown) (no (unknown) (unknown) [id number] (units (unkno wn) date) unknown) (unknown) (no (unknown) (unknown) 09/23/22 09/23/22 (units (unknown) date) 09/23/22 unknown) Range/Units (unknown) (no (unknown) (unknown) 09/23/22 09/23/22 (units (unknown) date) Range/Units unknown) (unknown) (no (unknown) (unknown) 09/23/22 19:06 (units (unknown) date) unknown) (unknown) (no (unknown) (unknown) 09/23/22 19:42 (units (unknown) date) unknown) (unknown) (no (unknown) (unknown) 09/23/22 20:31 (units (unknown) date) unknown) (unknown) (no (unknown) (unknown) 09/23/22 2249 (units ( unknown) date) unknown) (unknown) (no (unknown) (unknown) 09/23/22 (units (unkno wn) date) unknown) (unknown) (no (unknown) (unknown) 04/30/18 (units (unkno wn) date) unknown) (unknown) (no (unknown) (unknown) 1 crater Topical PRN (units (unknown) date) PRN (Reason: skin unknown) cancer lesions) Qty: 0 (unknown) (no (unknown) (unknown) 1 cap PO DAILY (units (unknown) date) Qty: 0 unknown) (unknown) (no (unknown) (unknown) 1 tab PO Q4-6H (units (unknown) date) PRN (Reason: pain) unknown) Qty: 20 0RF (unknown) (no (unknown) (unknown) 1 tab PO QDAY (units ( unknown) date) Qty: 0 unknown) (unknown) (no (unknown) (unknown) 1 tablet PO every (units (unknown) date) 4-6 hours as unknown) needed for pain (unknown) (no (unknown) (unknown) 10 mg PO QAM Qty: (units (unknown) date) 10 0RF unknown) (unknown) (no (unknown) (unknown) 19:00 09/23/22 (units (unknown) date) unknown) (unknown) (no (unknown) (unknown) 19:10 (units (unkno wn) date) unknown) (unknown) (no (unknown) (unknown) 19:42 19:42 19:42 (units (unknown) date) unknown) (unknown) (no (unknown) (unknown) 19:42 19:42 (units (un known) date) unknown) (unknown) (no (unknown) (unknown) 20 [...] (unknown) 500 (units (unkno wn) date) mg-chondroitin 400 unknown) mg capsule (unknown) (no (unknown) (unknown) 5mg every (units (unkn own) date) Nelson/2.5mg rest unknown) (unknown) (no (unknown) (unknown) 8 meq PO DAILY (units (unknown) date) Qty: 10 0RF unknown) (unknown) (no (unknown) (unknown) 8 rib fractures (units (unknown) date) and a right T6 and unknown) T7 transverse process fractures nondisplaced. (unknown) (no (unknown) (unknown) 87-year-old woman (units (unknown) date) with a history of unknown) congestive heart failure, atrial (unknown) (no (unknown) (unknown) A trace (units (unkno wn) date) pneumothorax and unknown) trace right pleural effusion. Was observed in the (unknown) (no (unknown) (unknown) ALT (<50) IU/L (units (unknown) date) unknown) (unknown) (no (unknown) (unknown) ALT 21 (<50) IU/L (units (unknown) date) unknown) (unknown) (no (unknown) (unknown) AST (17-59) IU/L (units (unknown) date) unknown) (unknown) (no (unknown) (unknown) AST 28 (17-59) (units (unknown) date) IU/L unknown) (unknown) (no (unknown) (unknown) Abdomen: Soft, (units (unknown) date) nontender, good unknown) bowel tones, no flank pain (unknown) (no (unknown) (unknown) Activity (units (unkno wn) date) Restrictions/Addit unknown) ional Instructions: (unknown) (no (unknown) (unknown) Admin: 09/23/22 (units (unknown) date) 21:10 Dose: 112 unknown) mls/hr (unknown) (no (unknown) (unknown) Afib (units (unkno wn) date) unknown) (unknown) (no (unknown) (unknown) Age/Sex: 87 / M (units (unknown) date) unknown) (unknown) (no (unknown) (unknown) Albumin (3.5-5.0) (units (unknown) date) g/dL unknown) (unknown) (no (unknown) (unknown) Albumin 4.0 (units (un known) date) (3.5-5.0) g/dL unknown) (unknown) (no (unknown) (unknown) Albumin/Globulin (units (unknown) date) Ratio (1.0-2.8) unknown) (unknown) (no (unknown) (unknown) Albumin/Globulin (units (unknown) date) Ratio 1.2 unknown) (1.0-2.8) (unknown) (no (unknown) (unknown) Alcohol type: (units ( unknown) date) hard liquor unknown) (unknown) (no (unknown) (unknown) Alkaline (units (unkno wn) date) Phosphatase unknown) (38-126) U/L (unknown) (no (unknown) (unknown) Alkaline (units (unkno wn) date) Phosphatase 141 H unknown) (38-126) U/L (unknown) (no (unknown) (unknown) Allergies (units (unkn own) date) unknown) (unknown) (no (unknown) (unknown) Allergy/AdvReac (units (unknown) date) Type Severity unknown) Reaction Status Date / Time (unknown) (no (unknown) (unknown) And looking for (units (unknown) date) alternate reasons unknown) for the severity of your sleep apnea, I did (unknown) (no (unknown) (unknown) Apnea, sleep (units (u nknown) date) unknown) (unknown) (no (unknown) (unknown) Atrial (units (unkno wn) date) fibrillation at a unknown) rate of 79. Single paced beat appreciated, no acute (unknown) (no (unknown) (unknown) BCC (basal cell (units (unknown) date) carcinoma of skin) unknown) (unknown) (no (unknown) (unknown) BNP slightly (units (u nknown) date) elevated unknown) (unknown) (no (unknown) (unknown) BUN (9-20) mg/dL (units (unknown) date) unknown) (unknown) (no (unknown) (unknown) BUN 25 H (9-20) (units (unknown) date) mg/dL unknown) (unknown) (no (unknown) (unknown) BUN/Creatinine (units (unknown) date) Ratio (6-22) unknown) (unknown) (no (unknown) (unknown) BUN/Creatinine (units (unknown) date) Ratio 19.4 (6-22) unknown) (unknown) (no (unknown) (unknown) Baso # (Auto) (units ( unknown) date) (0-100) /uL unknown) (unknown) (no (unknown) (unknown) Baso # (Auto) 100 (units (unknown) date) (0-100) /uL unknown) (unknown) (no (unknown) (unknown) Baso % (Auto) (units ( unknown) date) (0-2) % unknown) (unknown) (no (unknown) (unknown) Baso % (Auto) 1.1 (units (unknown) date) (0-2) % unknown) (unknown) (no (unknown) (unknown) Bilateral lower (units (unknown) date) extremity edema unknown) (unknown) (no (unknown) (unknown) Blood Pressure (units (unknown) date) 133/73 09/23/22 unknown) 19:00 (unknown) (no (unknown) (unknown) Blood Pressure (units (unknown) date) 133/73 unknown) (unknown) (no (unknown) (unknown) Bones and chest (units (unknown) date) wall: No unknown) suspicious bony lesions. Overlying soft tissues (unknown) (no (unknown) (unknown) CBC is reviewed. (units (unknown) date) No leukocytosis. unknown) Slight decrease in H+H to 12.5 and 36.7. (unknown) (no (unknown) (unknown) CC: Severe apneic (units (unknown) date) spells any time he unknown) falls asleep. 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) unknown) (unknown) (no (unknown) (unknown) Calcium (units (unkno wn) date) (8.4-10.2) mg/dL unknown) (unknown) (no (unknown) (unknown) Calcium 8.9 (units (un known) date) (8.4-10.2) mg/dL unknown) (unknown) (no (unknown) (unknown) Capsule (units (unkno wn) date) unknown) (unknown) (no (unknown) (unknown) Carbon Dioxide (units (unknown) date) (22-32) mmol/L unknown) (unknown) (no (unknown) (unknown) Carbon Dioxide 27 (units (unknown) date) (22-32) mmol/L unknown) (unknown) (no (unknown) (unknown) Cardiac: Regular (units (unknown) date) rate and rhythm no unknown) murmurs no bruits (unknown) (no (unknown) (unknown) Chest x-ray: (units (u nknown) date) unknown) (unknown) (no (unknown) (unknown) Chief complaint: (units (unknown) date) Shortness of unknown) Breath/Dyspnea (unknown) (no (unknown) (unknown) Chloride (98-107) (units (unknown) date) mmol/L unknown) (unknown) (no (unknown) (unknown) Chloride 94 L (units ( unknown) date) (98-107) mmol/L unknown) (unknown) (no (unknown) (unknown) Clinical (units (unkno wn) date) Impression: unknown) (unknown) (no (unknown) (unknown) Closed (units (unkno wn) date) nondisplaced unknown) fracture of pelvis (unknown) (no (unknown) (unknown) Comparison is (units ( unknown) date) January of 2021 unknown) (unknown) (no (unknown) (unknown) Complete Blood (units (unknown) date) Count AUTO DIFF unknown) Stat (unknown) (no (unknown) (unknown) Complicating (units (u nknown) date) co-morbidities: unknown) Recent fall down stairs with rib fractures and (unknown) (no (unknown) (unknown) Comprehensive (units ( unknown) date) Metabolic Panel unknown) Stat (unknown) (no (unknown) (unknown) Congestive heart (units (unknown) date) failure unknown) (unknown) (no (unknown) (unknown) Consultations: (units (unknown) date) unknown) (unknown) (no (unknown) (unknown) Corroborating (units ( unknown) date) data: unknown) (unknown) (no (unknown) (unknown) Course (units (unkno wn) date) unknown) (unknown) (no (unknown) (unknown) Covid-19 + FLU (units (unknown) date) A/B + RSV - PCR unknown) Stat (unknown) (no (unknown) (unknown) Creatinine (units (unk nown) date) (0.66-1.25) mg/dL unknown) (unknown) (no (unknown) (unknown) Creatinine 1.29 H (units (unknown) date) (0.66-1.25) mg/dL unknown) (unknown) (no (unknown) (unknown) : 1935 (units (unknown) date) Acct:[id number] unknown) (unknown) (no (unknown) (unknown) Data collected (units (unknown) date) from: patient, unknown) (unknown) (no (unknown) (unknown) Date of Service: (units (unknown) date) 09/23/22 unknown) (unknown) (no (unknown) (unknown) Departure (units (unkn own) date) unknown) (unknown) (no (unknown) (unknown) Diabetes (units (unkno wn) date) unknown) (unknown) (no (unknown) (unknown) Dictated by: (units (u nknown) date) Adelina Romano M.D. unknown) on 09/23/2022 at 19:27 (unknown) (no (unknown) (unknown) Differential (units (u nknown) date) considered: unknown) Hemothorax, pneumothorax, complications from recent (unknown) (no (unknown) (unknown) Discharge Plan (units (unknown) date) unknown) (unknown) (no (unknown) (unknown) Discontinued (units (u nknown) date) Medications unknown) (unknown) (no (unknown) (unknown) Discussion: (units (un known) date) 87-year-old unknown) gentleman who complains of severe apnea any time he (unknown) (no (unknown) (unknown) Disposition: see (units (unknown) date) below, along with unknown) detailed discharge instructions that have (unknown) (no (unknown) (unknown) Documented By: BS (units (unknown) date) unknown) (unknown) (no (unknown) (unknown) ECG Data (units (unkno wn) date) unknown) (unknown) (no (unknown) (unknown) ED Orders (units (unkn own) date) unknown) (unknown) (no (unknown) (unknown) EKG-12 Lead Stat (units (unknown) date) unknown) (unknown) (no (unknown) (unknown) ER Physician: (units ( unknown) date) Rosa [facility] L unknown) (unknown) (no (unknown) (unknown) Easy bruisability (units (unknown) date) unknown) (unknown) (no (unknown) (unknown) Emergency Report (units (unknown) date) unknown) (unknown) (no (unknown) (unknown) Eos # (Auto) (units (u nknown) date) (0-450) /uL unknown) (unknown) (no (unknown) (unknown) Eos # (Auto) 100 (units (unknown) date) (0-450) /uL unknown) (unknown) (no (unknown) (unknown) Eos % (Auto) (units (u nknown) date) (2-4) % unknown) (unknown) (no (unknown) (unknown) Eos % (Auto) 1.9 (units (unknown) date) L (2-4) % unknown) (unknown) (no (unknown) (unknown) Estimated GFR (units ( unknown) date) (>60) mL/min unknown) (unknown) (no (unknown) (unknown) Estimated GFR 54 (units (unknown) date) L (>60) mL/min unknown) (unknown) (no (unknown) (unknown) Exam documented (units (unknown) date) above, pertinent unknown) findings include: He is alert and appropriate, (unknown) (no (unknown) (unknown) Exam (units (unkno wn) date) unknown) (unknown) (no (unknown) (unknown) Extremities: No (units (unknown) date) trauma, well unknown) perfused, 1+ edema bilaterally (unknown) (no (unknown) (unknown) FINDINGS: (units (unkn own) date) unknown) (unknown) (no (unknown) (unknown) Fragile skin (units (u nknown) date) unknown) (unknown) (no (unknown) (unknown) Full and (units (unkno wn) date) symmetrical air unknown) movement (unknown) (no (unknown) (unknown) Furosemide 60 mg/ (units (unknown) date) Sodium (Chloride) unknown) 56 mls @ 112 mls/hr IV NOW ONE (unknown) (no (unknown) (unknown) GERD (units (unkno wn) date) (gastroesophageal unknown) reflux disease) (unknown) (no (unknown) (unknown) General (units (unkno wn) date) unknown) (unknown) (no (unknown) (unknown) General: Healthy (units (unknown) date) appearing, in no unknown) acute distress. Able to give a complete and (unknown) (no (unknown) (unknown) Globulin (units (unkno wn) date) (1.7-4.1) g/dL unknown) (unknown) (no (unknown) (unknown) Globulin 3.3 (units (u nknown) date) (1.7-4.1) g/dL unknown) (unknown) (no (unknown) (unknown) Glucose (80-110) (units (unknown) date) mg/dL unknown) (unknown) (no (unknown) (unknown) Glucose 124 H (units ( unknown) date) (80-110) mg/dL unknown) (unknown) (no (unknown) (unknown) HEENT: Moist (units (u nknown) date) mucous membranes, unknown) normal sclera with reactive pupils, skin cancer (unknown) (no (unknown) (unknown) HPI - Female (units (u nknown) date) Genitourinary unknown) (unknown) (no (unknown) (unknown) HPI Narrative: (units (unknown) date) unknown) (unknown) (no (unknown) (unknown) Hct (41-53) % (units ( unknown) date) unknown) (unknown) (no (unknown) (unknown) Hct 36.7 L (units (unk nown) date) (41-53) % unknown) (unknown) (no (unknown) (unknown) 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 with unknown) no acute findings (unknown) (no (unknown) (unknown) Heart failure (units ( unknown) date) type: unspecified unknown) Heart failure chronicity: acute on chronic (unknown) (no (unknown) (unknown) Hgb (13.5-17.5) (units (unknown) date) g/dL unknown) (unknown) (no (unknown) (unknown) Hgb 12.5 L (units (unk nown) date) (13.5-17.5) g/dL unknown) (unknown) (no (unknown) (unknown) History of (units (unk nown) date) Present Illness unknown) (unknown) (no (unknown) (unknown) Home Medications (units (unknown) date) unknown) (unknown) (no (unknown) (unknown) Hx of arthroscopy (units (unknown) date) of shoulder unknown) (unknown) (no (unknown) (unknown) Hx of hernia (units (u nknown) date) repair unknown) (unknown) (no (unknown) (unknown) Hx of (units (unkno wn) date) tonsillectomy unknown) (unknown) (no (unknown) (unknown) I am going to ask (units (unknown) date) you to increase unknown) your usual dose of Lasix from 40 mg in the (unknown) (no (unknown) (unknown) IMPRESSION: No (units (unknown) date) acute process. unknown) (unknown) (no (unknown) (unknown) INR (0.9-1.3) (units ( unknown) date) unknown) (unknown) (no (unknown) (unknown) INR 1.6 H (units (unkn own) date) (0.9-1.3) unknown) (unknown) (no (unknown) (unknown) INR is slightly (units (unknown) date) subtherapeutic at unknown) 1.6 (unknown) (no (unknown) (unknown) If you find that (units (unknown) date) you are getting unknown) worse or develop any new symptoms, please feel (unknown) (no (unknown) (unknown) Imaging Data (units (u nknown) date) unknown) (unknown) (no (unknown) (unknown) Imaging studies (units (unknown) date) independently unknown) reviewed: Chest x-ray shows no significant (unknown) (no (unknown) (unknown) Independently (units ( unknown) date) reviewed EKG as unknown) above (unknown) (no (unknown) (unknown) Influenza A (units (un known) date) (RT-PCR) unknown) (NEGATIVE) (unknown) (no (unknown) (unknown) Influenza A (units (un known) date) (RT-PCR) Flu a unknown) negative (NEGATIVE) (unknown) (no (unknown) (unknown) Influenza B (units (un known) date) (RT-PCR) unknown) (NEGATIVE) (unknown) (no (unknown) (unknown) Influenza B (units (un known) date) (RT-PCR) Flu b unknown) negative (NEGATIVE) (unknown) (no (unknown) (unknown) Initial Vital (units ( unknown) date) Signs unknown) (unknown) (no (unknown) (unknown) Initial Vital (units ( unknown) date) Signs: unknown) (unknown) (no (unknown) (unknown) Instructions: DI (units (unknown) date) for Heart Failure, unknown) DI for Obstructive Sleep Apnea -- Adult (unknown) (no (unknown) (unknown) Interpretation: (units (unknown) date) unknown) (unknown) (no (unknown) (unknown) [facility] (units (unknown) date) [address] unknown) [place] [address] (unknown) (no (unknown) (unknown) It does look like (units (unknown) date) your congestive unknown) heart failure is slightly worsened with a bit (unknown) (no (unknown) (unknown) KCL-Chondroitin) (units (unknown) date) unknown) (unknown) (no (unknown) (unknown) Lauri Vasquez MD (units (unknown) date) [Primary Care unknown) Provider] (unknown) (no (unknown) (unknown) Lab Data (units (unkno wn) date) unknown) (unknown) (no (unknown) (unknown) Lab Results (units (un known) date) unknown) (unknown) (no (unknown) (unknown) Lab Test results (units (unknown) date) independently unknown) reviewed as above. Pertinent findings: (unknown) (no (unknown) (unknown) Labs: (units (unkno wn) date) unknown) (unknown) (no (unknown) (unknown) Lactate (0.7-2.1) (units (unknown) date) mmol/L unknown) (unknown) (no (unknown) (unknown) Lactate (Lactic (units (unknown) date) Acid) Stat unknown) (unknown) (no (unknown) (unknown) Lactate 1.6 (units (un known) date) (0.7-2.1) mmol/L unknown) (unknown) (no (unknown) (unknown) Last Infusion: (units (unknown) date) 09/23/22 21:48 unknown) Dose: 0 mls/hr (unknown) (no (unknown) (unknown) Left foot drop (units (unknown) date) unknown) (unknown) (no (unknown) (unknown) Lungs and pleura: (units (unknown) date) Lungs are clear. unknown) No pleural effusions or pneumothorax. (unknown) (no (unknown) (unknown) Lymph # (Auto) (units (unknown) date) (1165-8624) /uL unknown) (unknown) (no (unknown) (unknown) Lymph # (Auto) (units (unknown) date) 900 L (5453-7222) unknown) /uL (unknown) (no (unknown) (unknown) Lymph % (Auto) (units (unknown) date) (25-40) % unknown) (unknown) (no (unknown) (unknown) Lymph % (Auto) (units (unknown) date) 13.3 L (25-40) % unknown) (unknown) (no (unknown) (unknown) MCH (26-34) PG (units (unknown) date) unknown) (unknown) (no (unknown) (unknown) MCH 30.9 (26-34) (units (unknown) date) PG unknown) (unknown) (no (unknown) (unknown) MCHC (30-36) % (units (unknown) date) unknown) (unknown) (no (unknown) (unknown) MCHC 33.9 (30-36) (units (unknown) date) % unknown) (unknown) (no (unknown) (unknown) MCV (80-100) fL (units (unknown) date) unknown) (unknown) (no (unknown) (unknown) MCV 91.1 (80-100) (units (unknown) date) fL unknown) (unknown) (no (unknown) (unknown) MDM - Female (units (u nknown) date) Genitourinary unknown) (unknown) (no (unknown) (unknown) MDM Narrative (units ( unknown) date) unknown) (unknown) (no (unknown) (unknown) Measure peak (units (u nknown) date) expiratory flow unknown) ONCE (unknown) (no (unknown) (unknown) Mediastinum: (units (u nknown) date) Mediastinal unknown) contours appear normal. Heart size is normal. (unknown) (no (unknown) (unknown) Medical History (units (unknown) date) (Reviewed 09/14/22 unknown) @ 01:47 by Fito Pagan DO) (unknown) (no (unknown) (unknown) Medical decision (units (unknown) date) making narrative: unknown) (unknown) (no (unknown) (unknown) Medical records (units (unknown) date) reviewed: Prior unknown) sleep visits, pulmonary function tests, (unknown) (no (unknown) (unknown) Medication (units (unk nown) date) Instructions unknown) Recorded Confirmed (unknown) (no (unknown) (unknown) Medication (units (unk nown) date) Instructions unknown) Recorded (unknown) (no (unknown) (unknown) Mixed (units (unkno wn) date) hyperlipidemia unknown) (unknown) (no (unknown) (unknown) Gaines # (Auto) (units ( unknown) date) (0-900) /uL unknown) (unknown) (no (unknown) (unknown) Gaines # (Auto) 700 (units (unknown) date) (0-900) /uL unknown) (unknown) (no (unknown) (unknown) Gaines % (Auto) (units ( unknown) date) (3-14) % unknown) (unknown) (no (unknown) (unknown) Gaines % (Auto) (units ( unknown) date) 10.5 (3-14) % unknown) (unknown) (no (unknown) (unknown) NT-Pro-B (units (unkno wn) date) Natriuret Pep unknown) (<450) pg/mL (unknown) (no (unknown) (unknown) NT-Pro-B (units (unkno wn) date) Natriuret Pep 2510 unknown) H (<450) pg/mL (unknown) (no (unknown) (unknown) NT-proBNP (units (unkn own) date) (BNP-Adult 18+) unknown) Stat (unknown) (no (unknown) (unknown) Narrative: (units (unk nown) date) unknown) (unknown) (no (unknown) (unknown) Neck: No JVD, (units ( unknown) date) supple unknown) (unknown) (no (unknown) (unknown) Neurologic: (units (un known) date) Grossly unknown) neurologically intact with no obvious asymmetries or (unknown) (no (unknown) (unknown) Neut # (Auto) (units ( unknown) date) (3198-7327) /uL unknown) (unknown) (no (unknown) (unknown) Neut # (Auto) (units ( unknown) date) 5100 (4189-1466) unknown) /uL (unknown) (no (unknown) (unknown) Neut % (Auto) (units ( unknown) date) (50-75) % unknown) (unknown) (no (unknown) (unknown) Neut % (Auto) (units ( unknown) date) 73.2 (50-75) % unknown) (unknown) (no (unknown) (unknown) No Action (units (unkn own) date) unknown) (unknown) (no (unknown) (unknown) Numbness (units (unkno wn) date) unknown) (unknown) (no (unknown) (unknown) Ordered: (units (unkno wn) date) unknown) (unknown) (no (unknown) (unknown) Orders (units (unkno wn) date) unknown) (unknown) (no (unknown) (unknown) Oxygen Delivery (units (unknown) date) Method 09/23/22 unknown) 19:00 (unknown) (no (unknown) (unknown) Oxygen Delivery (units (unknown) date) Method Room Air unknown) (unknown) (no (unknown) (unknown) PT (10.1-12.7) (units (unknown) date) SECONDS unknown) (unknown) (no (unknown) (unknown) PT 18.7 H (units (unkn own) date) (10.1-12.7) unknown) SECONDS (unknown) (no (unknown) (unknown) Pacemaker (units (unkn own) date) unknown) (unknown) (no (unknown) (unknown) Patient (units (unkno wn) date) Disposition: Home unknown) (unknown) (no (unknown) (unknown) Patient History (units (unknown) date) unknown) (unknown) (no (unknown) (unknown) Patient: (units (unkno wn) date) White,Dallin A unknown) MR#: [id number] (unknown) (no (unknown) (unknown) Penicillins (units (un known) date) [PENICILLINS] unknown) Allergy Mild Rash Verified 09/23/22 19:56 (unknown) (no (unknown) (unknown) Plt Count (units (unkn own) date) (150-400) X103/uL unknown) (unknown) (no (unknown) (unknown) Plt Count 249 (units ( unknown) date) (150-400) X103/uL unknown) (unknown) (no (unknown) (unknown) Pneumonia (units (unkn own) date) unknown) (unknown) (no (unknown) (unknown) Potassium (units (unkn own) date) (3.4-5.1) mmol/L unknown) (unknown) (no (unknown) (unknown) Potassium 3.9 (units ( unknown) date) (3.4-5.1) mmol/L unknown) (unknown) (no (unknown) (unknown) Prescriptions: (units (unknown) date) unknown) (unknown) (no (unknown) (unknown) Previous Rx's (units ( unknown) date) unknown) (unknown) (no (unknown) (unknown) Prothrombin Time (units (unknown) date) INR Stat unknown) (unknown) (no (unknown) (unknown) Psych: (units (unkno wn) date) Cooperative, unknown) appropriate insight and affect (unknown) (no (unknown) (unknown) Pulmonary (units (unkn own) date) arterial unknown) hypertension (unknown) (no (unknown) (unknown) Pulse Oximetry 97 (units (unknown) date) 09/23/22 19:00 unknown) (unknown) (no (unknown) (unknown) Pulse Oximetry 97 (units (unknown) date) unknown) (unknown) (no (unknown) (unknown) Pulse Rate 73 (units ( unknown) date) 09/23/22 19:00 unknown) (unknown) (no (unknown) (unknown) Pulse Rate 73 (units ( unknown) date) unknown) (unknown) (no (unknown) (unknown) Qualified (units (unkn own) date) Code(s): I50.9 - unknown) Heart failure, unspecified (unknown) (no (unknown) (unknown) Qualifiers: (units (un known) date) unknown) (unknown) (no (unknown) (unknown) RBC (4.5-5.9) (units ( unknown) date) X106/uL unknown) (unknown) (no (unknown) (unknown) RBC 4.03 L (units (unk nown) date) (4.5-5.9) X106/uL unknown) (unknown) (no (unknown) (unknown) RDW (11.6-14.8) % (units (unknown) date) unknown) (unknown) (no (unknown) (unknown) RDW 13.9 (units (unkno wn) date) (11.6-14.8) % unknown) (unknown) (no (unknown) (unknown) RSV (PCR) (units (unkn own) date) (Negative) unknown) (unknown) (no (unknown) (unknown) RSV (PCR) (units (unkn own) date) Negative unknown) (Negative) (unknown) (no (unknown) (unknown) RT Consult Eval (units (unknown) date) and Treat NOW unknown) (unknown) (no (unknown) (unknown) Radiologist's (units ( unknown) date) Impression: unknown) (unknown) (no (unknown) (unknown) Re-evaluations: (units (unknown) date) After reviewing unknown) initial blood work, discussed findings with (unknown) (no (unknown) (unknown) Referrals: (units (unk nown) date) unknown) (unknown) (no (unknown) (unknown) Related Data (units (u nknown) date) unknown) (unknown) (no (unknown) (unknown) Remainder of (units (u nknown) date) complete review of unknown) systems is otherwise unremarkable except for (unknown) (no (unknown) (unknown) Respiratory Rate (units (unknown) date) 20 09/23/22 19:00 unknown) (unknown) (no (unknown) (unknown) Respiratory Rate (units (unknown) date) 20 unknown) (unknown) (no (unknown) (unknown) Respiratory: (units (u nknown) date) Lungs are clear to unknown) auscultation, no wheezing no rales no rhonchi. (unknown) (no (unknown) (unknown) Review of Systems (units (unknown) date) unknown) (unknown) (no (unknown) (unknown) Rx Instructions: (units (unknown) date) unknown) (unknown) (no (unknown) (unknown) SARS-CoV-2 (PCR) (units (unknown) date) (Negative) unknown) (unknown) (no (unknown) (unknown) SARS-CoV-2 (PCR) (units (unknown) date) Negative unknown) (Negative) (unknown) (no (unknown) (unknown) Scoliosis (units (unkn own) date) unknown) (unknown) (no (unknown) (unknown) Signed By: (units (unk nown) date) unknown) (unknown) (no (unknown) (unknown) Skin: Warm and (units (unknown) date) dry, no rashes unknown) (unknown) (no (unknown) (unknown) Sleep apnea type: (units (unknown) date) unspecified type unknown) Qualified Code(s): G47.30 - Sleep apnea, (unknown) (no (unknown) (unknown) Sleep disorder (units (unknown) date) unknown) (unknown) (no (unknown) (unknown) Social (units (unkno wn) date) determinants of unknown) health that may influence the patients condition: Age, (unknown) (no (unknown) (unknown) Sodium (137-145) (units (unknown) date) mmol/L unknown) (unknown) (no (unknown) (unknown) Sodium 134 L (units (u nknown) date) (137-145) mmol/L unknown) (unknown) (no (unknown) (unknown) Stand Alone (units (un known) date) Forms: Patient unknown) Portal/API (unknown) (no (unknown) (unknown) Stated complaint: (units (unknown) date) SOB/Blood Ox unknown) 99%/Passed Out (unknown) (no (unknown) (unknown) Status post (units (un known) date) bilateral cataract unknown) extraction (unknown) (no (unknown) (unknown) Stop: 09/23/22 (units (unknown) date) 20:32 unknown) (unknown) (no (unknown) (unknown) Substance Use (units ( unknown) date) Type: does not use unknown) (unknown) (no (unknown) (unknown) Surgical History (units (unknown) date) (Reviewed 02/21/21 unknown) @ 10:52 by Johnson Patel MD) (unknown) (no (unknown) (unknown) Surgical changes (units (unknown) date) and devices: unknown) Left-sided pacer (unknown) (no (unknown) (unknown) Take for pitting (units (unknown) date) swollen legs only unknown) with shortness of breath (unknown) (no (unknown) (unknown) Take only when (units (unknown) date) you are taking the unknown) lasix (unknown) (no (unknown) (unknown) Temperature 98 F (units (unknown) date) unknown) (unknown) (no (unknown) (unknown) Thank you for (units ( unknown) date) coming in today unknown) (unknown) (no (unknown) (unknown) Time Seen by (units (u nknown) date) Provider: 09/23/22 unknown) 19:29 (unknown) (no (unknown) (unknown) Total Bilirubin (units (unknown) date) (0.2-1.3) mg/dL unknown) (unknown) (no (unknown) (unknown) Total Bilirubin (units (unknown) date) 1.1 (0.2-1.3) unknown) mg/dL (unknown) (no (unknown) (unknown) Total Protein (units ( unknown) date) (6.3-8.2) g/dL unknown) (unknown) (no (unknown) (unknown) Total Protein 7.3 (units (unknown) date) (6.3-8.2) g/dL unknown) (unknown) (no (unknown) (unknown) Treatments: (units (un known) date) unknown) (unknown) (no (unknown) (unknown) Troponin I < (units (u nknown) date) 0.012 (0.01-0.034) unknown) ng/mL (unknown) (no (unknown) (unknown) Troponin I (units (unk nown) date) (0.01-0.034) ng/mL unknown) (unknown) (no (unknown) (unknown) Troponin I Stat (units (unknown) date) unknown) (unknown) (no (unknown) (unknown) Troponin (units (unkno wn) date) unremarkable unknown) (unknown) (no (unknown) (unknown) Vital Signs - 8 (units (unknown) date) hr unknown) (unknown) (no (unknown) (unknown) Vital Signs (units (un known) date) unknown) (unknown) (no (unknown) (unknown) Vital signs: (units (u nknown) date) unknown) (unknown) (no (unknown) (unknown) WBC (4.5-11.0) (units (unknown) date) X103/uL unknown) (unknown) (no (unknown) (unknown) WBC 6.9 (units (unkno wn) date) (4.5-11.0) X103/uL unknown) (unknown) (no (unknown) (unknown) XR chest 1V Stat (units (unknown) date) unknown) (unknown) (no (unknown) (unknown) You do need to (units (unknown) date) follow-up with unknown) your sleep provider to continue your progress (unknown) (no (unknown) (unknown) [Embedded Image (units (unknown) date) Not Available] unknown) (unknown) (no (unknown) (unknown) abnormalities (units ( unknown) date) unknown) (unknown) (no (unknown) (unknown) acute coronary (units (unknown) date) syndrome. Patient unknown) is agreeable to workup (unknown) (no (unknown) (unknown) additional (units (unk nown) date) outpatient follow unknown) up (unknown) (no (unknown) (unknown) afraid to go to (units (unknown) date) sleep. He unknown) describes no recent change to weight has continued to (unknown) (no (unknown) (unknown) alcohol intake (units (unknown) date) frequency: 0-2 unknown) drinks per day (unknown) (no (unknown) (unknown) also like to do a (units (unknown) date) CT scan of the unknown) chest to look for pulmonary embolism, as well (unknown) (no (unknown) (unknown) and (units (unkno wn) date) anticoagulated on unknown) warfarin. (unknown) (no (unknown) (unknown) and has since (units ( unknown) date) pick them up to unknown) but does not use them much. Main concern at this (unknown) (no (unknown) (unknown) appear (units (unkno wn) date) unknown) (unknown) (no (unknown) (unknown) as review trauma (units (unknown) date) findings. His pro unknown) BNP is elevated suggesting slightly (unknown) (no (unknown) (unknown) been reviewed (units ( unknown) date) with patient as unknown) well as indications for ED re-evaluation and (unknown) (no (unknown) (unknown) blood around her (units (unknown) date) lungs. The CT scan unknown) did suggest a component of pulmonary (unknown) (no (unknown) (unknown) but is not (units (unk nown) date) entirely certain. unknown) Would like to repeat a CT scan to make sure there (unknown) (no (unknown) (unknown) can be addressed (units (unknown) date) with his primary unknown) care provider, no pulmonary embolism, (unknown) (no (unknown) (unknown) capsule,extended (units (unknown) date) release unknown) (unknown) (no (unknown) (unknown) chest tightness (units (unknown) date) with Shortness of unknown) breath (unknown) (no (unknown) (unknown) coherent history. (units (unknown) date) Well-nourished unknown) well-developed (unknown) (no (unknown) (unknown) criteria for (units (u nknown) date) hospitalization at unknown) this time. No suggestion of brain abnormalities (unknown) (no (unknown) (unknown) day that cause (units (unknown) date) him to wake up in unknown) a panic. Frequently that panic and anxiety (unknown) (no (unknown) (unknown) difficulty (units (unk nown) date) accessing unknown) healthcare (unknown) (no (unknown) (unknown) disease. 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 (unknown) (no (unknown) (unknown) doctor regarding (units (unknown) date) his sleep disorder unknown) and need for CPAP. All of this is reviewed (unknown) (no (unknown) (unknown) dramatically (units (u nknown) date) worsened over the unknown) last 3 months (unknown) (no (unknown) (unknown) edema minimal (units ( unknown) date) tenderness related unknown) to the known rib and transverse process (unknown) (no (unknown) (unknown) emergency (units (unkn own) date) department with unknown) repeat x-ray showing the pneumothorax was not (unknown) (no (unknown) (unknown) exacerbated by (units (unknown) date) pain and recent unknown) fall, infectious etiology, central sleep apnea, (unknown) (no (unknown) (unknown) exacerbation of a (units (unknown) date) chronic problem unknown) with uncertain prognosis and potential for (unknown) (no (unknown) (unknown) expanding he was (units (unknown) date) discharged home. unknown) He presented to [place] [facility] (unknown) (no (unknown) (unknown) failure and I (units ( unknown) date) will have him unknown) increase his Lasix however he is not meeting any (unknown) (no (unknown) (unknown) fall, acute (units (un known) date) coronary syndrome, unknown) congestive heart failure, severe sleep apnea (unknown) (no (unknown) (unknown) falls asleep. He (units (unknown) date) does have mild unknown) exacerbation of his chronic congestive heart (unknown) (no (unknown) (unknown) fibrillation, (units ( unknown) date) prior stroke, unknown) diabetes, hyperlipidemia with sleep apnea who has (unknown) (no (unknown) (unknown) fluorouracil 5 % (units (unknown) date) topical cream 1 unknown) carter topical PRN PRN skin cancer 04/29/17 (unknown) (no (unknown) (unknown) fluorouracil (units (u nknown) date) [Efudex] 5 % cream unknown) (unknown) (no (unknown) (unknown) fractures are (units ( unknown) date) identified unknown) findings consistent with chronic interstitial lung (unknown) (no (unknown) (unknown) fractures. Rate (units (unknown) date) controlled atrial unknown) fibrillation and no jugular venous distention (unknown) (no (unknown) (unknown) free to return to (units (unknown) date) the emergency unknown) department for further evaluation. (unknown) (no (unknown) (unknown) furosemide 20 mg [...] ##0 04/29/17 04/30/18 (unknown) (no (unknown) (unknown) going well and (units (unknown) date) will likely to unknown) recheck potassium levels and kidney function. (unknown) (no (unknown) (unknown) had not picked up (units (unknown) date) his pain unknown) medications at that time. Was prescribed oxycodone (unknown) (no (unknown) (unknown) heart failure. (units (unknown) date) Complaints of unknown) significant exertional dyspnea that has (unknown) (no (unknown) (unknown) hydrocodone 5 (units ( unknown) date) mg-acetaminophen unknown) 325 1 tab PO Q4-6H PRN pain #20 tabs 05/12/18 (unknown) (no (unknown) (unknown) hydrocodone-aceta (units (unknown) date) minophen [[place]] unknown) 5-325 mg tablet (unknown) (no (unknown) (unknown) hypertension and (units (unknown) date) it may be worth unknown) discussing this with your primary care (unknown) (no (unknown) (unknown) intracranial (units (u nknown) date) hemorrhage unknown) affecting breathing issues related to recent fall (unknown) (no (unknown) (unknown) involving the (units ( unknown) date) 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 (unknown) (no (unknown) (unknown) is not subdural (units (unknown) date) that might be unknown) causing worsening central sleep apnea and would (unknown) (no (unknown) (unknown) ischemic changes (units (unknown) date) unknown) (unknown) (no (unknown) (unknown) lungs, your rib (units (unknown) date) fractures are unknown) healing nicely and there is no collapsed lung or (unknown) (no (unknown) (unknown) melatonin 5 MG (units (unknown) date) tablet unknown) (unknown) (no (unknown) (unknown) melatonin 5 mg (units (unknown) date) tablet 5 mg PO QHS unknown) PRN Sleep 04/30/18 05/12/18 (unknown) (no (unknown) (unknown) metoprolol (units (unk nown) date) succinate 50 mg 50 unknown) mg PO BEDTIME 04/30/18 02/21/21 (unknown) (no (unknown) (unknown) metoprolol (units (unk nown) date) succinate 50 mg unknown) Tablet Extended Release 24 Hr (unknown) (no (unknown) (unknown) mg tablet ([place]) (units (unknown) date) unknown) (unknown) (no (unknown) (unknown) more fluid (units (unk nown) date) overload. You are unknown) given some IV Lasix in the emergency department. (unknown) (no (unknown) (unknown) morning to 60 mg (units (unknown) date) with the unknown) additional 20 mg continuing in the afternoon. You (unknown) (no (unknown) (unknown) multivitamin (units (u nknown) date) (Multiple Vitamins unknown) 1 tab PO QDAY ##0 04/29/17 04/30/18 (unknown) (no (unknown) (unknown) multivitamin (units (u nknown) date) [Multiple unknown) Vitamins] 1 EACH tablet (unknown) (no (unknown) (unknown) never been able (units (unknown) date) to complete a full unknown) workup to finally be prescribed CPAP machine (unknown) (no (unknown) (unknown) nitroglycerin 0.3 (units (unknown) date) mg sublingual 0.3 unknown) mg sublingual Q5-15M PRN chest 10/01/19 (unknown) (no (unknown) (unknown) nitroglycerin 0.3 (units (unknown) date) mg tablet, unknown) sublingual (unknown) (no (unknown) (unknown) not find any (units (u nknown) date) abnormalities in unknown) your brain, no infection, no blood clots in your (unknown) (no (unknown) (unknown) not having overt (units (unknown) date) palpitations but unknown) does note that he is in atrial fibrillation (unknown) (no (unknown) (unknown) omeprazole 20 mg (units (unknown) date) Tablet,Delayed unknown) Release (Dr/Ec) (unknown) (no (unknown) (unknown) omeprazole 20 mg (units (unknown) date) tablet,delayed 20 unknown) mg PO BID 04/30/18 02/21/21 (unknown) (no (unknown) (unknown) on the 05/02 (units (un known) date) complaining of unknown) shortness of breath particularly with exertion. He (unknown) (no (unknown) (unknown) orthopedic (units (unk nown) date) surgery for his unknown) chronic back pain as well as prior ER notes related (unknown) (no (unknown) (unknown) patient. He (units (un known) date) believes there was unknown) a CT scan done with a fall a couple of weeks ago (unknown) (no (unknown) (unknown) pneumonia. Rib (units (unknown) date) fractures are unknown) healing nicely from his prior fall. No hemo (unknown) (no (unknown) (unknown) pneumothorax is (units (unknown) date) appreciated. Will unknown) ask him to follow-up with his primary care (unknown) (no (unknown) (unknown) potassium (units (unkn own) date) chloride 8 mEq 8 unknown) meq PO DAILY #10 caps 10/01/19 (unknown) (no (unknown) (unknown) potassium (units (unkn own) date) chloride 8 mEq unknown) capsule, extended release (unknown) (no (unknown) (unknown) presents (units (unkno wn) date) complaining of unknown) severe apneic episodes when he falls asleep during the (unknown) (no (unknown) (unknown) provider. (units (unkn own) date) unknown) (unknown) (no (unknown) (unknown) pulmonary (units (unkn own) date) arteries unknown) suggestive of pulmonary artery hypertension. No acute rib (unknown) (no (unknown) (unknown) release (units (unkno wn) date) unknown) (unknown) (no (unknown) (unknown) [facility] (units (unknown) date) General where unknown) x-rays revealed displaced right posterior 6 7 and (unknown) (no (unknown) (unknown) significant (units (un known) date) systemic symptoms unknown) (unknown) (no (unknown) (unknown) speaking in full (units (unknown) date) sentences, no unknown) wheezing, no crackles minimal lower extremity (unknown) (no (unknown) (unknown) sulfite [SULFITE] (units (unknown) date) Allergy Severe unknown) from foods Verified 09/23/22 19:56 (unknown) (no (unknown) (unknown) tablet pain #25 (units (unknown) date) tabs unknown) (unknown) (no (unknown) (unknown) tablet) (units (unkno wn) date) unknown) (unknown) (no (unknown) (unknown) tablet,extended (units (unknown) date) release 24 hr unknown) (unknown) (no (unknown) (unknown) that included in (units (unknown) date) the HPI. unknown) (unknown) (no (unknown) (unknown) that would be (units ( unknown) date) causing central unknown) sleep apnea, possible pulmonary hypertension that (unknown) (no (unknown) (unknown) time is that any (units (unknown) date) time he falls unknown) asleep he stops breathing wakes up panic and is (unknown) (no (unknown) (unknown) to fall on (units (unk nown) date) September 12 unknown) (unknown) (no (unknown) (unknown) toward getting a (units (unknown) date) CPAP machine for unknown) use at home. (unknown) (no (unknown) (unknown) transverse (units (unk nown) date) process fractures unknown) in the thorax, recent pneumothorax. Congestive (unknown) (no (unknown) (unknown) unremarkable. (units ( unknown) date) unknown) (unknown) (no (unknown) (unknown) unspecified (units (un known) date) unknown) (unknown) (no (unknown) (unknown) until response; (units (unknown) date) do not exceed 3 unknown) doses per episode, take for chest pain and or (unknown) (no (unknown) (unknown) use his (units (unkno wn) date) prescribed 60 mg unknown) of Lasix daily. No fevers no particular cough. He is (unknown) (no (unknown) (unknown) warfarin 3 mg (units ( unknown) date) tablet (Coumadin) unknown) [facility] (unknown) (no (unknown) (unknown) warfarin (units (unkno wn) date) [Coumadin] 3 MG unknown) tablet (unknown) (no (unknown) (unknown) will last for a (units (unknown) date) couple of days. He unknown) fell down the stairs on September 12 was (unknown) (no (unknown) (unknown) will need (units (unkn own) date) follow-up with unknown) your primary care provider to make sure that this is (unknown) (no (unknown) (unknown) with the patient (units (unknown) date) who is agreeable unknown) with plan. He is safe for discharge home (unknown) (no (unknown) (unknown) worsening (units (unkn own) date) congestive heart unknown) failure with negative troponin suggesting lack of Social History date description facility 2022-09-12 00:00 Unknown if ever smoked All 2022-09-13 00:00 Never smoked tobacco (finding) [facility] 2022-09-23 00:00 Never smoked tobacco (finding) [facility] Vital Signs date measurement value units 2022-09-13 [...] 74.84 kg 2022-09-13 00:00 weight_standard 164.99 lb 2022-09-23 00:00 BMI 27.4 kg/m2 2022-09-23 00:00 BP_diastolic 68 mmHg 2022-09-23 00:00 BP_systolic 131 mmHg 2022-09-23 00:00 heart_rate 82 /min 2022-09-23 00:00 height_metric 162.56 cm 2022-09-23 00:00 height_standard 64 in 2022-09-23 00:00 o2_saturation 95 % 2022-09-23 00:00 respiration_rate 16 /min 2022-09-23 00:00 temperature_metric 36.67 C 2022-09-23 00:00 temperature_standard 98 F 2022-09-23 00:00 weight_metric 72.57 kg 2022-09-23 00:00 weight_standard 159.99 lb
[2022-09-25 18:40] LABS: ALBUMIN 4.1 g/dL (3.2-5.5); ALBUMIN/GLOBULIN RATIO 1.2 (1.0-2.2); BILIRUBIN,TOTAL 1.7 mg/dL (0.2-1.0); CALCIUM 10.3 mg/dL (8.5-10.3); CREATININE 1.4 mg/dL (0.6-1.2); POTASSIUM 3.3 mmol/L (3.5-5.0); TOTAL PROTEIN 7.5 g/dL (6.7-8.2)
--- NOTE | 2022-09-25 18:47 | XRAY Report ---
PROCEDURE: Chest 1 View X-Ray INDICATIONS: dyspnea TECHNIQUE: One view of the chest was acquired. COMPARISON: None. FINDINGS: Surgical changes and devices: Left chest wall pacemaker leads are in the region of right atrium and right ventricle.. Lungs and pleura: No pleural effusions or pneumothorax. Lungs are clear. Mediastinum: Mediastinal contours appear normal. Heart size is enlarged. Bones and chest wall: No suspicious bony lesions. Overlying soft tissues appear unremarkable. IMPRESSION: No acute cardiopulmonary pathology. Reviewed by: Francisco Javier Mayberry MD on 09/25/2022 6:45 PM PST Approved by: Francisco Javier Mayberry MD on 09/25/2022 6:45 PM PST Station ID: [id number]
--- NOTE | 2022-09-25 18:49 | ED Physician Documentation ---
History of Present Illness - Stated complaint Stated Complaint: PASSED OUT, SOA, DIZZY - Chief complaint Chief Complaint: Neuro - History obtained from History obtained from: Patient, Family - History of Present Illness Timing: Chronic Pain level max: 0 Pain level now: 0 - Additonal information Additional information: 87-year-old male presents the emergency department complaining of feeling like he is gasping for breath while sitting in his chair today. He is unsure if he is falling asleep or not. He states that he has a history of obstructive sleep apnea, but due to panic attacks has not been able to complete a full sleep study. He does not have a CPAP machine. No fevers. No chills. No cough. No nausea, vomiting, diarrhea. He recently had his diuretic increased for CHF. He states the swelling is decreased in his feet. Review of Systems Constitutional: denies: Fever, Chills GI: denies: Vomiting Skin: denies: Rash Musculoskeletal: denies: Neck pain, Back pain PD PAST MEDICAL HISTORY - Past Medical History Cardiovascular: High cholesterol, Atrial fibrillation Respiratory: Pneumonia, Shortness of breath Endocrine/Autoimmune: None GI: GERD : None Psych: None Musculoskeletal: None Derm: None - Past Surgical History Past Surgical History: Yes General: Other Cardiovascular: Pacemaker HEENT: Cataracts - Present Medications Home Medications: Ambulatory Orders Medication Instructions Recorded Confirmed Fish Oil/Dha/Epa [Fish Oil 1,200 1 each PO BID 10/12/13 09/13/22 mg Fish Oil] Glucosamine/MSM/Chondroit Sulf 1 each PO DAILY 10/12/13 09/13/22 [Ydlddikkgcb-Qpqqnqfuk-FBV Tab] Multivitamin [Multivitamins] 1 each PO DAILY 10/12/13 09/13/22 Omeprazole [Prilosec] 20 mg PO QPM 10/12/13 09/13/22 Warfarin Sodium [Coumadin] 3.5 - 7.5 mg PO DAILY 10/12/13 09/13/22 Acetaminophen [Tylenol] 650 mg PO Q4HR PRN tab 09/13/22 Calcium Carbonate [Tums (Calcium 1,000 mg PO BID tab 09/13/22 Carbonate 500mg)] Cyanocobalamin (Vitamin B-12) 1,000 mcg PO DAILY 09/13/22 09/13/22 [Vitamin B-12] Furosemide [Lasix] 20 mg PO QPM 09/13/22 09/13/22 Furosemide [Lasix] 40 mg PO DAILY 09/13/22 09/13/22 Lidocaine Patch 5% [Lidoderm Patch] 1 each TOP DAILY #14 patch 09/13/22 Metoprolol Tartrate [Lopressor] 50 mg PO BID 09/13/22 09/13/22 oxyCODONE [Roxicodone] 5 mg PO Q4HR PRN tab 09/13/22 - Allergies Allergies/Adverse Reactions: Allergies Allergy/AdvReac Type Severity Reaction Status Date / Time Penicillins Allergy Rash Verified 09/25/22 17:48 - Social History Does the pt smoke?: No Smoking Status: Never smoker Does the pt drink ETOH?: Yes Does the pt have substance abuse?: No - Immunizations Immunizations are current?: Yes - POLST Patient has POLST: No PD ED PE NORMAL - Vitals Vital signs reviewed: Yes - General General: Alert and oriented X 3, No acute distress - HEENT HEENT: PERRL, Moist mucous membranes - Neck Neck: Supple, no meningeal sign - Cardiac Cardiac: RRR, Strong equal pulses - Respiratory Respiratory: No respiratory distress, Clear bilaterally - Abdomen Abdomen: Soft, Non tender, Non distended - Derm Derm: Warm and dry - Extremities Extremities: No edema, No calf tenderness / cord - Neuro Neuro: Alert and oriented X 3 - Psych Psych: Normal mood, Normal affect Results - Vitals Vitals: Vital Signs - 24 hr 09/25/22 09/25/22 09/25/22 17:48 17:55 19:55 Temperature 36.5 C 36.5 C Heart Rate 69 69 100 Respiratory 24 24 20 Rate Blood Pressure 139/75 H 139/75 H 127/81 H O2 Saturation 97 97 98 09/25/22 21:00 Temperature 36.5 C Heart Rate 100 Respiratory 24 Rate Blood Pressure 95/83 H O2 Saturation 98 Oxygen O2 Source Room air - Labs Labs: Laboratory Tests 09/25/22 09/25/22 09/25/22 18:09 18:09 18:09 WBC 7.7 RBC 4.30 L Hgb 13.0 L Hct 40.0 L MCV 93.0 MCH 30.2 MCHC 32.5 RDW 13.8 Plt Count 297 MPV 10.5 Neut # (Auto) 5.3 Lymph # (Auto) 1.1 L [place] # (Auto) 1.0 Eos # (Auto) 0.1 Baso # (Auto) 0.1 Absolute Nucleated RBC 0.00 Nucleated RBC % 0.0 Sodium 139 Potassium 3.3 L Chloride 94 L Carbon Dioxide 25 Anion Gap 20.0 H BUN 26 H Creatinine 1.4 H Estimated GFR (MDRD) 48 L Glucose 147 H Calcium 10.3 Total Bilirubin 1.7 H AST 29 ALT 19 Alkaline Phosphatase 122 H Troponin I High Sens B-Natriuretic Peptide 338 H Total Protein 7.5 Albumin 4.1 Globulin 3.4 Albumin/Globulin Ratio 1.2 09/25/22 09/25/22 18:09 20:29 WBC RBC Hgb Hct MCV MCH MCHC RDW Plt Count MPV Neut # (Auto) Lymph # (Auto) [place] # (Auto) Eos # (Auto) Baso # (Auto) Absolute Nucleated RBC Nucleated RBC % Sodium Potassium Chloride Carbon Dioxide Anion Gap BUN Creatinine Estimated GFR (MDRD) Glucose Calcium Total Bilirubin AST ALT Alkaline Phosphatase Troponin I High Sens 33.6 H* 41.0 H* B-Natriuretic Peptide Total Protein Albumin Globulin Albumin/Globulin Ratio - Rads (name of study) Chest x-ray Radiology: Final report received, See rad report PD Medical Decision Making - ED course Complexity details: reviewed results, re-evaluated patient, considered differential, d/w patient ED course: 87-year-old male presents to the emergency department with what sounds like ongoing sleep apnea at home. He does not currently have a CPAP machine. Recommend that he follow-up with his PCP for this. No emergency medical condition at this time. Patient also possibly was over diuresed after increasing his Lasix, lightheadedness resolved with 500 mL of normal saline. No acute findings on EKG. Initially did have some tachycardia, but this resolved as well. Patient currently asymptomatic. We will have him follow-up with his doctor for further care. Patient counseled regarding signs and symptoms for which I believe and urgent re-evaluation would be necessary. Patient with good understanding of and agreement to plan and is comfortable going home at this time This document was made in part using voice recognition software. While efforts are made to proofread this document, sound alike and grammatical errors may occur. Departure - Departure Disposition: 01 Home, Self Care Clinical Impression: Dehydration Dyspnea Qualifiers: Dyspnea type: unspecified Qualified Code(s): R06.00 - Dyspnea, unspecified Sleep apnea Qualifiers: Sleep apnea type: unspecified type Qualified Code(s): G47.30 - Sleep apnea, unspecified Condition: Good Instructions: ED Dehydration, ED Dyspnea Shortness of Breath Follow-Up: Lauri Vasquez MD [Primary Care Provider] - Within 1 week Comments: Please continue your current medications at home. Please follow-up with your doctor for further care. Please return if you worsen. You would likely benefit from a CPAP machine for your sleep apnea. Discharge Date/Time: 09/25/22 21:20
[2022-09-25 21:02] VITALS: BP 95/83
== END 2022-09-25 21:20 | disposition home or self-care (01) ==
LOC: ED 17:44
DX: R06.00 Dyspnea, unspecified (principal); E86.0 Dehydration; G47.30 Sleep apnea, unspecified
CPT/HCPCS: 36415; 80053; 83880; 84484; 85025; 93005; 96360; 99283

== ENCOUNTER 2022-11-06 12:16 | Outpatient (CLI) | payer OTHER ==
--- NOTE | 2022-11-06 13:32 | XRAY Report ---
PROCEDURE: Chest 2 View X-Ray INDICATIONS: AFIB TECHNIQUE: 2 views of the chest were acquired. COMPARISON: 09/25/2022 FINDINGS: Surgical changes and devices: Left chest wall cardiac pacer. Lungs and pleura: No pleural effusions or pneumothorax. Bibasilar atelectasis. Mediastinum: Mediastinal contours are normal. Heart is mildly enlarged. Bones and chest wall: No suspicious bony abnormalities. Soft tissues appear unremarkable. IMPRESSION: No acute cardiopulmonary disease process. Reviewed by: Evelyne Bonilla MD, PhD on 11/06/2022 1:31 PM PDT Approved by: Evelyne Bonilla MD, PhD on 11/06/2022 1:31 PM PDT Station ID: [id number]
== END 2022-11-06 12:17 | disposition home or self-care (01) ==
LOC: DI 12:16
PROVIDERS: ATTEND Internal Medicine
DX: I48.91 Unspecified atrial fibrillation (principal); I10 Essential (primary) hypertension; R06.02 Shortness of breath

== ENCOUNTER 2022-11-10 09:58 | Outpatient (CLI) | payer OTHER ==
--- NOTE | 2022-11-10 11:49 | CT Report ---
PROCEDURE: CHEST WO INDICATIONS: LEFT RIB PAIN TECHNIQUE: Noncontrast 1mm axial images were acquired from the pulmonary apices to the posterior costophrenic an gles. Axial 5 mm soft tissue kernel reconstructions were performed as well as 8 mm axial MIP and cor onal and sagittal 5 mm reformations. For radiation dose reduction, the following was used: automate d exposure control, adjustment of mA and/or kV according to patient size. COMPARISON: 09/12/2022, 10/13/2013 FINDINGS: Image quality: Excellent. Lungs and pleura: No acute air space opacities. Several areas of mild subpleural fibrosis can be see n. There is a small left-sided pleural effusion. No pneumothorax. Central and peripheral airways ar e patent and normal in caliber. Mediastinum: Heart size is mildly enlarged. There is moderate coronary artery calcification. No per icardial effusion. No mediastinal adenopathy by size criteria. Thoracic aorta and central pulmonary arteries are normal in size. Atherosclerotic calcification is seen. Esophagus is normal in caliber. No hiatal hernia. Bones and chest wall: Several healing rib fractures can be seen on the right posterior medially. Hea ling fractures of the T6 and T7 transverse processes are also seen. A T7 anterior wedge deformity can be seen, with 50% loss of height anteriorly. This is progressed com pared to the prior examination. No fracture of the scapula can be seen. No suspicious bony lesions. S-shaped scoliotic curvature is incidentally noted. Age-appropriate d egenerative changes are seen. No axillary or supraclavicular adenopathy by size criteria. The thyr oid is normal in size and there are no incidental findings. There is a left-sided pacer device. Abdomen: Small left-sided renal cysts are seen. Visualized upper abdominal solid organs and bowel lo ops appear normal in the absence of contrast. IMPRESSION: Progression of a T7 anterior wedge deformity, now with 50% loss of height anteriorly. Healing right-sided rib fractures and healing right T6 and T7 transverse process fractures can be see n. There is a small left-sided pleural effusion seen. Additional findings: Mild cardiomegaly. Pacer device S shaped scoliosis Atherosclerotic calcification, including moderate coronary artery calcification Reviewed by: Migue Chavez MD on 11/10/2022 10:47 AM AKDT Approved by: Migue Chavez MD on 11/10/2022 10:47 AM JULIO Station ID: [id number]
== END 2022-11-10 09:59 | disposition home or self-care (01) ==
LOC: DI 09:58
PROVIDERS: ATTEND Family Medicine
DX: S22.41XD Multiple fractures of ribs, right side, subsequent encounter for fracture with routine healing (principal); S22.059D Unspecified fracture of T5-T6 vertebra, subsequent encounter for fracture with routine healing; S22.069D Unspecified fracture of T7-T8 vertebra, subsequent encounter for fracture with routine healing; J90 Pleural effusion, not elsewhere classified

== ENCOUNTER 2024-03-21 09:59 | Emergency (ER) | payer OTHER ==
[2024-03-21] MEDS ORDERED: FUROSEMIDE 100 MG/10 ML VIAL IVP STA (10:52)
--- NOTE | 2024-03-21 10:54 | ED Physician Documentation ---
History of Present Illness - Stated complaint Stated Complaint: - Chief complaint Chief Complaint: General - History obtained from History obtained from: Patient, Family () - History of Present Illness Timing: Yesterday - Additonal information Additional information: Dallin Oliveira is an 88-year-old male with a history of atrial fibrillation who is on Coumadin and has a history of congestive heart failure on high doses of Lasix. He indicates that yesterday he had significant swelling of his scrotum and this is somewhat improved today. This is his chief complaint for presentation to the emergency department. He denies being more short of breath than usual and denies any changes in his medications. He does state that he did not take his Lasix this morning in case we needed to give him some type of medication. He normally takes Lasix 150 mg twice per day (his history and by med rec it looks like he actually takes 40 in the am and 20 in the PM. ) PD PAST MEDICAL HISTORY - Past Medical History Cardiovascular: High cholesterol, Atrial fibrillation Respiratory: Pneumonia, Shortness of breath Endocrine/Autoimmune: None GI: GERD : None Psych: None Musculoskeletal: None Derm: None - Past Surgical History Past Surgical History: Yes General: Other Cardiovascular: Pacemaker HEENT: Cataracts - Present Medications Home Medications: Ambulatory Orders Medication Instructions Recorded Confirmed Fish Oil/Dha/Epa [Fish Oil 1,200 1 each PO BID 10/12/13 09/13/22 mg Fish Oil] Glucosamine/MSM/Chondroit Sulf 1 each PO DAILY 10/12/13 09/13/22 [Syxufbcistz-Icgdzhdfn-AZE Tab] Multivitamin [Multivitamins] 1 each PO DAILY 10/12/13 09/13/22 Omeprazole [Prilosec] 20 mg PO QPM 10/12/13 09/13/22 Warfarin Sodium [Coumadin] 3.5 - 7.5 mg PO DAILY 10/12/13 09/13/22 Acetaminophen [Tylenol] 650 mg PO Q4HR PRN tab 09/13/22 Calcium Carbonate [Tums (Calcium 1,000 mg PO BID tab 09/13/22 Carbonate 500mg)] Cyanocobalamin (Vitamin B-12) 1,000 mcg PO DAILY 09/13/22 09/13/22 [Vitamin B-12] Furosemide [Lasix] 20 mg PO QPM 09/13/22 09/13/22 Furosemide [Lasix] 40 mg PO DAILY 09/13/22 09/13/22 Lidocaine Patch 5% [Lidoderm Patch] 1 each TOP DAILY #14 patch 09/13/22 Metoprolol Tartrate [Lopressor] 50 mg PO BID 09/13/22 09/13/22 oxyCODONE [Roxicodone] 5 mg PO Q4HR PRN tab 09/13/22 - Allergies Allergies/Adverse Reactions: Allergies Allergy/AdvReac Type Severity Reaction Status Date / Time Penicillins Allergy Rash Verified 03/21/24 10:12 Sulfa (Sulfonamide Allergy Rash Verified 03/21/24 10:12 Antibiotics) - Social History Does the pt smoke?: No Smoking Status: Never smoker Does the pt drink ETOH?: Yes Does the pt have substance abuse?: No - Immunizations Immunizations are current?: Yes - POLST Patient has POLST: No PD ED PE NORMAL - Vitals Vital signs reviewed: Yes (normal ) - General General: Alert and oriented X 3, No acute distress, Well developed/nourished - HEENT HEENT: Atraumatic, PERRL, EOMI - Neck Neck: Supple, no meningeal sign, No bony TTP - Cardiac Cardiac: RRR, Other (2/6 holosystolic murmer at LSB) - Respiratory Respiratory: No respiratory distress, Other (crackles at the bases bilat) - Abdomen Abdomen: Soft, Non tender - Male Male : Other (There is mild swelling to the scrotum without tenderness or mass to the testes) - Back Back: No CVA TTP, No spinal TTP - Derm Derm: Normal color, Warm and dry, No rash - Extremities Extremities: No deformity, Other (pitting edema up to the mid calf bilat. ) - Neuro Neuro: Alert and oriented X 3, stem lead former 2-12 intact, No motor deficit, No sensory deficit, Normal speech Eye Opening: Spontaneous Motor: Obeys Commands Verbal: Oriented GCS Score: 15 - Psych Psych: Normal mood, Normal affect Results - Vitals Vitals: Vital Signs - 24 hr 03/21/24 03/21/24 10:07 13:49 Temperature 36.0 C L Heart Rate 84 80 Respiratory 20 20 Rate Blood Pressure 98/61 118/74 O2 Saturation 96 95 Oxygen O2 Source Room air - Labs Labs: Laboratory Tests 03/21/24 03/21/24 03/21/24 11:18 11:18 12:02 WBC 6.3 RBC 3.87 L Hgb 12.2 L Hct 37.6 L MCV 97.2 H MCH 31.5 H MCHC 32.4 RDW 14.6 Plt Count 158 MPV 10.7 Neut # (Auto) 4.1 Lymph # (Auto) 0.9 L [place] # (Auto) 1.0 Eos # (Auto) 0.1 Baso # (Auto) 0.1 Absolute Nucleated RBC 0.00 Nucleated RBC % 0.0 PT 33.5 H INR 3.3 H Sodium 131 L Potassium 4.5 Chloride 95 L Carbon Dioxide 28 Anion Gap 8.0 BUN 26 H Creatinine 1.4 H Estimated GFR (MDRD) 48 L Glucose 94 Calcium 9.6 Magnesium 2.4 H Total Bilirubin 1.6 H AST 25 ALT 11 Alkaline Phosphatase 191 H Troponin I High Sens 50.9 H* B-Natriuretic Peptide Total Protein 6.4 Albumin 3.9 Globulin 2.5 Albumin/Globulin Ratio 1.6 Lipase 35 Urine Color Urine Clarity Urine pH Ur Specific [place] Urine Protein Urine Glucose (UA) Urine Ketones Urine Occult Blood Urine Nitrite Urine Bilirubin Urine Urobilinogen Ur Leukocyte Esterase Ur Microscopic Review Urine Culture Comments 03/21/24 03/21/24 03/21/24 12:02 12:55 12:58 WBC RBC Hgb Hct MCV MCH MCHC RDW Plt Count MPV Neut # (Auto) Lymph # (Auto) [place] # (Auto) Eos # (Auto) Baso # (Auto) Absolute Nucleated RBC Nucleated RBC % PT INR Sodium Potassium Chloride Carbon Dioxide Anion Gap BUN Creatinine Estimated GFR (MDRD) Glucose Calcium Magnesium Total Bilirubin AST ALT Alkaline Phosphatase Troponin I High Sens 47.0 H* B-Natriuretic Peptide 719 H Total Protein Albumin Globulin Albumin/Globulin Ratio Lipase Urine Color YELLOW Urine Clarity CLEAR Urine pH 6.5 Ur Specific [place] 1.015 Urine Protein NEGATIVE Urine Glucose (UA) NEGATIVE Urine Ketones NEGATIVE Urine Occult Blood NEGATIVE Urine Nitrite NEGATIVE Urine Bilirubin NEGATIVE Urine Urobilinogen 0.2 (NORMAL) Ur Leukocyte Esterase NEGATIVE Ur Microscopic Review NOT INDICATED Urine Culture Comments NOT INDICATED - Rads (name of study) chest Relevant Findings:: Prelim report reviewed (Impression: Cardiomegaly and prominent interstitial markings, correlate for pulmonary edema.), EMP independent interpretation of test, See rad report Procedures - IVC sono (time) 1120 Bedside IVC sono: IVC measures (cm) (3.31), High CVP, Fluid overload PD Medical Decision Making - ED course Complexity details: reviewed old records, reviewed results, re-evaluated patient, considered differential, d/w patient, d/w family Reviewed Lab Results: We reviewed a complete blood count showing a normal white blood cell count of 6.3 hemoglobin and hematocrit were low at 12.2 and 37.6 both of these numbers similar to what the patient has had over the past year. Coagulation shows an INR of 3.3 chemistries show a serum sodium low at 131 BUN is elevated at 26 creatinine elevated at 1.4 normal for the patient. Magnesium was elevated at 2.4. alkaline phosphatase elevated at 191 troponin was mildly elevated at 50.9 and a repeat at 47.0. BNP was elevated at 719. Urinalysis was unremarkable. I interpreted these laboratory results to indicate the patient has a degree of congestive heart failure with an elevated BNP and that he has a stable process regarding his heart with a troponin leak. He is adequately anticoagulated. ED course: Dallin Oliveira presented to the emergency department with a chief complaint of scrotal swelling and he appears to have fluid retention. He has a history of congestive heart failure and he is on Lasix. His scrotal swelling is not massive and appears improved from yesterday. His laboratory studies were also reassuring without significant abnormalities. 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 Today he is treated in the emergency department with 40 mg of Lasix intravenously and he is up to the bathroom several times. I will have him increase his Lasix slightly. Departure - Departure Disposition: 01 Home, Self Care Clinical Impression: Congestive heart failure Qualifiers: Heart failure type: unspecified Heart failure chronicity: acute on chronic Qualified Code(s): I50.9 - Heart failure, unspecified Condition: Stable Instructions: ED CHF General Follow-Up: Lauri Vasquez MD [Primary Care Provider] - Comments: Dallin, today it looks like you have too much fluid on board and the recommendation is to take extra Lasix for the next 3 days. Increase your morning dose to 3 pills (60mg). Follow-up with Dr. Vasquez. Forms: PCP List Discharge Date/Time: 03/21/24 14:38
[2024-03-21] MEDS ORDERED: FUROSEMIDE 40 MG/4 ML VIAL IVP STA (10:56)
[2024-03-21 11:39] LABS: INR 3.3 (0.8-1.2); PT - PROTHROMBIN TIME 33.5 secs (9.9-12.6)
[2024-03-21 11:42] LABS: ALBUMIN 3.9 g/dL (3.2-5.5); ALBUMIN/GLOBULIN RATIO 1.6 (1.0-2.2); BILIRUBIN,TOTAL 1.6 mg/dL (0.2-1.0); CALCIUM 9.6 mg/dL (8.5-10.3); CREATININE 1.4 mg/dL (0.6-1.3); MAGNESIUM 2.4 mg/dL (1.7-2.3); POTASSIUM 4.5 mmol/L (3.5-4.5); TOTAL PROTEIN 6.4 g/dL (6.4-8.9)
[2024-03-21 11:52] LABS: TROPONIN I HIGH SENSITIVITY 50.9 ng/L (2.3-19.7)
[2024-03-21 12:09] LABS: BASOPHILS # (AUTO) 0.1 10^3/uL (0.0-0.1); BASOPHILS % (AUTO) 1.4 %; EOSINOPHILS # (AUTO) 0.1 10^3/uL (0.0-0.7); EOSINOPHILS % (AUTO) 2.1 %; HCT - HEMATOCRIT 37.6 % (42.0-52.0); HGB - HEMOGLOBIN 12.2 g/dL (14.0-18.0); LYMPHOCYTES # (AUTO) 0.9 10^3/uL (1.5-3.5); LYMPHOCYTES % (AUTO) 13.9 %; MEAN CORPUSCULAR HEMOGLOBIN 31.5 pg (27.0-31.0); MEAN CORPUSCULAR HGB CONC 32.4 g/dL (32.0-36.0); MEAN CORPUSCULAR VOLUME 97.2 fL (80.0-94.0); MEAN PLATELET VOLUME 10.7 fL (7.4-11.4); MONOCYTES % (AUTO) 16.5 %; NEUTROPHILS # (AUTO) 4.1 10^3/uL (1.5-6.6); NEUTROPHILS % (AUTO) 65.6 %; PLT - PLATELET COUNT 158 10^3/uL (130-450); RED BLOOD COUNT 3.87 10^6/uL (4.70-6.10); RED CELL DISTRIBUTION WIDTH 14.6 % (12.0-15.0); WHITE BLOOD COUNT 6.3 x10^3/uL (4.8-10.8)
[2024-03-21] MEDS: FUROSEMIDE 40 MG/4 ML VIAL IVP STA (12:12)
[2024-03-21 13:12] LABS: BILIRUBIN,URINE NEGATIVE (NEGATIVE); GLUCOSE, URINE (UA) NEGATIVE (NEGATIVE); KETONES,URINE (UA) NEGATIVE (NEGATIVE); LEUKOCYTE ESTERASE, URINE NEGATIVE (NEGATIVE); NITRITE,URINE NEGATIVE (NEGATIVE); OCCULT BLOOD,URINE NEGATIVE (NEGATIVE); PH,URINE 6.5 PH (5.0-7.5); PROTEIN,URINE NEGATIVE (NEGATIVE); UROBILINOGEN,URINE 0.2 (NORMAL) E.U./dL (NORMAL)
[2024-03-21 13:14] LABS: CLARITY,URINE CLEAR (CLEAR)
[2024-03-21 13:53] VITALS: BP 118/74; O2SAT 95
--- NOTE | 2024-03-21 15:00 | XRAY Report ---
PROCEDURE: Chest 1V INDICATIONS: soa TECHNIQUE: One view of the chest was acquired. COMPARISON: 11/06/2022. FINDINGS: Surgical changes and devices: Left chest wall pacemaker. Lungs and pleura: No pleural effusions or pneumothorax. Prominent interstitial markings. Mediastinum: Mediastinal contours appear normal. Heart size is enlarged. Bones and chest wall: No suspicious bony lesions. Overlying soft tissues appear unremarkable. IMPRESSION: Cardiomegaly and prominent interstitial markings, correlate for pulmonary edema. Reviewed by: Gumaro Persaud MD on 03/21/2024 2:58 PM PDT Approved by: Gumaro Persaud MD on 03/21/2024 2:58 PM PDT Station ID: [id number]
== END 2024-03-21 14:38 | disposition home or self-care (01) ==
LOC: ED 09:59
DX: I50.9 Heart failure, unspecified (principal); T50.1X6A Underdosing of loop [high-ceiling] diuretics, initial encounter; Z91.128 Patient's intentional underdosing of medication regimen for other reason
CPT/HCPCS: 36415; 80053; 81001; 81003; 83690; 83735; 83880; 84484; 85025; 85610; 87086; 96374; 99284

== ENCOUNTER 2024-03-30 15:36 | Emergency (ER) | payer OTHER ==
[2024-03-30 16:26] LABS: BASOPHILS # (AUTO) 0.1 10^3/uL (0.0-0.1); BASOPHILS % (AUTO) 1.5 %; EOSINOPHILS # (AUTO) 0.2 10^3/uL (0.0-0.7); HCT - HEMATOCRIT 39.2 % (42.0-52.0); HGB - HEMOGLOBIN 12.5 g/dL (14.0-18.0); MEAN CORPUSCULAR HEMOGLOBIN 31.4 pg (27.0-31.0); MEAN CORPUSCULAR HGB CONC 31.9 g/dL (32.0-36.0); MEAN CORPUSCULAR VOLUME 98.5 fL (80.0-94.0); MEAN PLATELET VOLUME 10.7 fL (7.4-11.4); MONOCYTES # (AUTO) 1.1 10^3/uL (0.0-1.0); NEUTROPHILS # (AUTO) 5.6 10^3/uL (1.5-6.6); NEUTROPHILS % (AUTO) 69.3 %; PLT - PLATELET COUNT 188 10^3/uL (130-450); RED BLOOD COUNT 3.98 10^6/uL (4.70-6.10); RED CELL DISTRIBUTION WIDTH 14.9 % (12.0-15.0); WHITE BLOOD COUNT 8.1 x10^3/uL (4.8-10.8)
[2024-03-30 16:42] LABS: ALBUMIN 3.8 g/dL (3.2-5.5); ALBUMIN/GLOBULIN RATIO 1.2 (1.0-2.2); BILIRUBIN,TOTAL 1.8 mg/dL (0.2-1.0); CALCIUM 9.7 mg/dL (8.5-10.3); CREATININE 1.2 mg/dL (0.6-1.3); POTASSIUM 3.9 mmol/L (3.5-4.5); TOTAL PROTEIN 7.1 g/dL (6.4-8.9)
--- NOTE | 2024-03-30 17:09 | XRAY Report ---
PROCEDURE: Chest 1V INDICATIONS: soa TECHNIQUE: One view of the chest was acquired. COMPARISON: 03/21/2024 FINDINGS: Surgical changes and devices: Left chest wall pacemaker. Lungs and pleura: No pleural effusions or pneumothorax. Prominent interstitial markings. Mediastinum: Mediastinal contours appear normal. Heart size is enlarged. Bones and chest wall: No suspicious bony lesions. Overlying soft tissues appear unremarkable. IMPRESSION: Cardiomegaly with prominent interstitial markings concerning for CHF. Reviewed by: Gumaro Persaud MD on 03/30/2024 5:08 PM PDT Approved by: Gumaro Persaud MD on 03/30/2024 5:08 PM PDT Station ID: [id number]
--- NOTE | 2024-03-30 18:37 | Ultrasound Report ---
PROCEDURE: Duplex Ext Veins Right INDICATIONS: RLE swelling, pain TECHNIQUE: Real-time imaging, as well as color and pulse Doppler interrogation, were performed of the lower extr emity deep veins from the inguinal ligament to the popliteal fossa. Attempted visualization of the ca lf veins was performed. COMPARISON: None. FINDINGS: The deep veins are normally compressible, and free of intraluminal thrombus. Color and pu lse Doppler demonstrate normal phasic intraluminal flow. There is normal augmentation response to di stal compression maneuver. Significant edema is seen within the right lower extremity. IMPRESSION: No deep venous thrombosis of the visualized lower extremity. Reviewed by: Gumaro Persaud MD on 03/30/2024 6:36 PM PDT Approved by: Gumaro Persaud MD on 03/30/2024 6:36 PM PDT Station ID: [id number]
--- NOTE | 2024-03-30 19:30 | ED Physician Documentation ---
History of Present Illness - Stated complaint Stated Complaint: SOA/RT LEG PX - Chief complaint Chief Complaint: Ext Problem - History obtained from History obtained from: Patient - Additonal information Additional information: HPI from patient. Patient was advised by his PCP to come to the ER today for right leg swelling. The patient describes fluctuating degrees of chronic bilateral leg swelling, but noticeably worse starting 4 or 5 days ago, with noticeably worse swelling of the RLE compared to LLE. He says the swelling has actually been improving over past 24 hours but PCP advised him to come to ED . Patient denies chest pain. He tells me he is no more short of breath than his baseline, and that he intermittently uses supplemental oxygen at home but has not felt the need to use it today. His medication list includes warfarin (for atrial fibrillation), as well as furosemide. Review of Systems Constitutional: denies: Fever, Chills, Sweats Cardiac: reports: Pedal edema. denies: Chest pain / pressure, Palpitations, Calf pain Respiratory: reports: Dyspnea (baseline per patient), Cough (baseline (per patient)). denies: Hemoptysis, Wheezing GI: denies: Abdominal Pain PD PAST MEDICAL HISTORY - Past Medical History Cardiovascular: High cholesterol, Atrial fibrillation Respiratory: Pneumonia, Shortness of breath Neuro: None Endocrine/Autoimmune: None GI: GERD : None HEENT: None Psych: None Musculoskeletal: None Derm: None - Past Surgical History Past Surgical History: Yes General: Other Cardiovascular: Pacemaker HEENT: Cataracts - Present Medications Home Medications: Ambulatory Orders Medication Instructions Recorded Confirmed Fish Oil/Dha/Epa [Fish Oil 1,200 1 each PO BID 10/12/13 09/13/22 mg Fish Oil] Glucosamine/MSM/Chondroit Sulf 1 each PO DAILY 10/12/13 09/13/22 [Noriwhgcmue-Ghruvsmyb-YQA Tab] Multivitamin [Multivitamins] 1 each PO DAILY 10/12/13 09/13/22 Omeprazole [Prilosec] 20 mg PO QPM 10/12/13 09/13/22 Warfarin Sodium [Coumadin] 3.5 - 7.5 mg PO DAILY 10/12/13 09/13/22 Acetaminophen [Tylenol] 650 mg PO Q4HR PRN tab 09/13/22 Calcium Carbonate [Tums (Calcium 1,000 mg PO BID tab 09/13/22 Carbonate 500mg)] Cyanocobalamin (Vitamin B-12) 1,000 mcg PO DAILY 09/13/22 09/13/22 [Vitamin B-12] Furosemide [Lasix] 20 mg PO QPM 09/13/22 09/13/22 Furosemide [Lasix] 40 mg PO DAILY 09/13/22 09/13/22 Lidocaine Patch 5% [Lidoderm Patch] 1 each TOP DAILY #14 patch 09/13/22 Metoprolol Tartrate [Lopressor] 50 mg PO BID 09/13/22 09/13/22 oxyCODONE [Roxicodone] 5 mg PO Q4HR PRN tab 09/13/22 - Allergies Allergies/Adverse Reactions: Allergies Allergy/AdvReac Type Severity Reaction Status Date / Time Penicillins Allergy Rash Verified 03/30/24 15:55 sulfite Allergy Respiratory Verified 03/30/24 15:56 - Social History Does the pt smoke?: No Smoking Status: Never smoker Does the pt drink ETOH?: Yes Does the pt have substance abuse?: No - Immunizations Immunizations are current?: Yes - POLST Patient has POLST: No PD ED PE NORMAL - Vitals Vital signs reviewed: Yes - General General: Alert and oriented X 3, No acute distress, Well developed/nourished - Neck Neck: Supple, no meningeal sign - Cardiac Cardiac: No murmur - Respiratory Respiratory: No respiratory distress, Clear bilaterally - Abdomen Abdomen: Soft, Non tender PD ED PE EXPANDED - Cardiac Cardiac: Regular Rate, Irregularly irregular - Extremities Extremities: Other (BLE pitting edema, noticeably more pronounced RLE. chronic BLE hyperpigmentation c/w chronic venous stasis changes) Results - Vitals Vitals: Oxygen O2 Source Room air - Labs Labs: Laboratory Tests 03/30/24 03/30/24 16:17 16:17 WBC 8.1 RBC 3.98 L Hgb 12.5 L Hct 39.2 L MCV 98.5 H MCH 31.4 H MCHC 31.9 L RDW 14.9 Plt Count 188 MPV 10.7 Neut # (Auto) 5.6 Lymph # (Auto) 1.0 L [place] # (Auto) 1.1 H Eos # (Auto) 0.2 Baso # (Auto) 0.1 Absolute Nucleated RBC 0.00 Nucleated RBC % 0.0 Sodium 136 Potassium 3.9 Chloride 99 L Carbon Dioxide 31 Anion Gap 6.0 BUN 25 H Creatinine 1.2 Estimated GFR (MDRD) 57 L Glucose 160 H Calcium 9.7 Total Bilirubin 1.8 H AST 21 ALT 11 Alkaline Phosphatase 210 H Troponin I High Sens 13.0 Total Protein 7.1 Albumin 3.8 Globulin 3.3 Albumin/Globulin Ratio 1.2 Lipase 27 - Rads (name of study) CXR Relevant Findings:: Prelim report reviewed, See rad report RLE US Relevant Findings:: Prelim report reviewed, See rad report PD Medical Decision Making - ED course Complexity details: reviewed results, re-evaluated patient, considered differential, d/w patient ED course: Right lower extremity ultrasound is negative for DVT. Chest x-ray shows cardiomegaly and mild bilateral increased interstitial markings possibly due to CHF. However, the patient is speaking in full sentences on my exam, has clear lungs bilaterally to auscultation, 94 to 96% pulse ox on room air. Unremarkable CBC, ER abdominal panel (elevated BUN (25) with upper-normal creatinine (1.2), most likely due to furosemide). Results d/w patient, return precautions reviewed. Departure - Departure Disposition: 01 Home, Self Care Clinical Impression: Peripheral edema Condition: Good Instructions: ED Leg Swelling Unilateral Follow-Up: Lauri Vasquez MD [Primary Care Provider] - Comments: The ultrasound of your right leg was unremarkable; specifically, no evidence of a blood clot. Similarly, there were no concerning findings on the chest x-ray nor blood tests performed tonight. The cause of your leg swelling is not apparent at this time. Contact your primary care provider in the morning to inquire as to further recommendations, specifically when they want to see you again in the office for follow-up/reevaluation. Discharge Date/Time: 03/30/24 19:43
[2024-03-30 19:43] VITALS: BP 105/73; O2SAT 98
== END 2024-03-30 19:43 | disposition home or self-care (01) ==
LOC: ED 15:36
DX: R60.0 Localized edema (principal); I48.91 Unspecified atrial fibrillation; Z79.01 Long term (current) use of anticoagulants; E78.00 Pure hypercholesterolemia, unspecified; Z95.0 Presence of cardiac pacemaker
CPT/HCPCS: 36415; 80053; 83690; 84484; 85025; 93005; 99283; 99284